=== PATIENT | female | born 1960 | race African-American/Black ===

== ENCOUNTER 2017-01-10 08:16 | Inpatient (IN) | payer OTHER ==
--- NOTE | 2017-01-10 08:41 | PDOC ---
History of Present Illness - General History Source: Patient Exam Limitations: No Limitations - History of Present Illness Initial Comments: 01/10/17 08:46 The patient is a 56-year-old woman with a significant past medical history of hypertension, asthma, cervical Ca, celiac disease, kidney stones and migraine headaches who presents to the emergency department via walk-in for further evaluation of chest pain for the past week. No fall, trauma, strenuous activity. She states that her chest pain is sharp, localized over the left side , non-radiating with a rated 8/10 in severity. She notes that her chest pain is associated with shortness of breath on exertion (when walking), nausea and lightheadedness. She also reports that she is experiencing her typical migraine headaches, frontal and throbbing/pressure in nature, but states that her headache is worse today. She reports that her chest pains have been intermittent for the past week but today, at 04:00AM, her chest pains have been constant. She admits that she has been stressed out lately, and that might be affecting her. She also recalls that she had outpatient lab work done last week , and she was informed by Dr. Matthew Keith that she was anemic and she should present to the ER on Wednesday, but she did not, as it was her mother's birthday weekend. She denies fever, chills, cough, hemoptysis, diaphoresis. She denies jaw/ back pain lower extremity pain/swelling, calf tenderness/pain She denies abdominal pain, vomiting, diarrhea. No urinary complaints. She denies recent travel, recent surgery, recent immobilization. Allergies: Aspirin (Hives). Lidocaine. Penicillin (Hives) Past Surgical History: Laparoscopic Cholecystectomy (August of 2013). Caesarian. Tubal ligation. Social History: Former tobacco smoker (quit in 2001). No ETOH or recreational drug use. Primary Care Physician: Dr. Mathtew Keith [phone] <Maame York - Last Filed: 01/10/17 11:36> - General History Source: Patient, Old Records Exam Limitations: No Limitations <Lacy Farley - Last Filed: 01/10/17 12:07> - General Chief Complaint: Chest Pain Stated Complaint: CHEST PAIN/low h&h Time Seen by Provider: 01/10/17 08:31 Past History <YorkMaame - Last Filed: 01/10/17 11:36> - Past Medical History Anemia: No Asthma: Yes Cancer: Yes (CERVICAL CANCER X 2) Cardiac Disorders: No CVA: No COPD: No CHF: No Dementia: No Diabetes: No GI Disorders: Yes (CELIAC DISEASE) Disorders: Yes HTN: Yes Hypercholesterolemia: No Liver Disease: No Seizures: No Thyroid Disease: No - Surgical History Abdominal Surgery: No Appendectomy: No Cardiac Surgery: No Cholecystectomy: No Lung Surgery: No Neurologic Surgery: No Orthopedic Surgery: No - Psycho/Social/Smoking Cessation Hx Anxiety: No Suicidal Ideation: No Smoking History: Former smoker Have you smoked in the past 12 months: No If you are a former smoker, when did you quit?: 15 YRS. AGO Information on smoking cessation initiated: No Hx Alcohol Use: No Drug/Substance Use Hx: No Substance Use Type: None Hx Substance Use Treatment: No <Lacy Farley - Last Filed: 01/10/17 12:07> - Past Medical History Allergies/Adverse Reactions: Allergies Allergy/AdvReac Type Severity Reaction Status Date / Time aspirin Allergy Severe Hives Verified 01/10/17 08:20 lidocaine Allergy Severe Hives Verified 01/10/17 08:20 Penicillins Allergy Severe Hives Verified 01/10/17 08:20 Home Medications: Ambulatory Orders Metoprolol Succinate [Toprol XL -] 25 mg PO DAILY 10/24/12 Omeprazole [Prilosec (RX)] 40 mg PO DAILY 10/24/12 Amlodipine Besylate [Norvasc -] 10 mg PO DAILY 08/25/13 Clopidogrel Bisulfate [Plavix -] 75 mg PO DAILY 02/28/15 Lipase/Protease/Amylase [Ricki Dr 36,000 Units Capsule] 1 each PO DAILY Losartan Potassium 50 mg PO DAILY 10/11/15 Pramipexole Dihydrochloride [Mirapex -] 0.75 mg PO DAILY 10/11/15 Pramipexole Dihydrochloride [Mirapex -] 2 mg PO HS 10/11/15 Topiramate 100 mg PO BID 10/11/15 Trazodone HCl [Desyrel -] 50 mg PO HS 10/11/15 Review of Systems - Review of Systems Able to Perform ROS?: Yes Comments:: 01/10/17 08:46 GENERAL/CONSTITUTIONAL: No fever or chills. No weakness. HEAD, EYES, EARS, NOSE AND THROAT: No change in vision. No ear pain or discharge. No sore throat. CARDIOVASCULAR: Yes: Chest pain. Shortness of breath. RESPIRATORY: No cough, wheezing, or hemoptysis. GASTROINTESTINAL: Yes: Nausea. No vomiting, diarrhea or constipation. GENITOURINARY: No dysuria, frequency, or change in urination. MUSCULOSKELETAL: No joint or muscle swelling or pain. No neck or back pain. SKIN: No rash NEUROLOGIC: Yes: Headache. Lightheadedness. No vertigo, loss of consciousness, or change in strength/sensation. ENDOCRINE: No increased thirst. No abnormal weight change. HEMATOLOGIC/LYMPHATIC: Yes: Anemia. No easy bleeding, or history of blood clots. ALLERGIC/IMMUNOLOGIC: No hives or skin allergy. <Maame York - Last Filed: 01/10/17 11:36> *Physical Exam - Vital Signs Last Vital Signs Temp Pulse Resp BP Pulse Ox 98.3 F 87 15 137/87 100 01/10/17 08:20 01/10/17 08:20 01/10/17 08:20 01/10/17 08:20 01/10/17 08:20 - Physical Exam Comments: 01/10/17 08:47 GENERAL: Awake, alert, and fully oriented, in no acute distress HEAD: No signs of trauma EYES: PERRLA, EOMI, sclera anicteric, conjunctiva clear ENT: Auricles normal inspection, hearing grossly normal, nares patent, oropharynx clear without exudates. Moist mucosa NECK: Normal ROM, supple, no lymphadenopathy, JVD, or masses LUNGS: Breath sounds equal, clear to auscultation bilaterally. No wheezes, and no crackles HEART: Regular rate and rhythm, normal S1 and S2, no murmurs, rubs or gallops ABDOMEN: Soft, nontender, normoactive bowel sounds. No guarding, no rebound. No masses EXTREMITIES: Normal range of motion, no edema. No clubbing or cyanosis. No cords, erythema, or tenderness NEUROLOGICAL: Cranial nerves II through XII grossly intact. Normal speech, normal gait <Maame York - Last Filed: 01/10/17 11:36> - Vital Signs Last Vital Signs Temp Pulse Resp BP Pulse Ox 98.3 F 87 15 137/87 100 01/10/17 08:20 01/10/17 08:20 01/10/17 08:20 01/10/17 08:20 01/10/17 08:20 <Lacy Farley - Last Filed: 01/10/17 12:07> ED Treatment Course - LABORATORY CBC & Chemistry Diagram: 01/10/17 09:10 01/10/17 10:30 - RADIOLOGY Radiograph Interpretation: 01/10/17 09:52 EXAM: RAD/CHEST X-RAY PORTABLE IMPRESSION: An AP portable view of the chest is been submitted. Since 02/20/2015 1128 hours, there is no significant change. There are clear lungs, normal aorta , normal tolu and normal heart. The angles are sharp. The soft tissues are intact. There are right paratracheal calcified nodes. There is some old apical pleural thickening. <Maame York - Last Filed: 01/10/17 11:36> - LABORATORY CBC & Chemistry Diagram: 01/10/17 09:10 01/10/17 10:30 <Lacy Farlye - Last Filed: 01/10/17 12:07> Medical Decision Making - Medical Decision Making 01/10/17 11:35 MicroBlog[employer] Hospitalist. <Maame York - Last Filed: 01/10/17 11:36> - Medical Decision Making 01/10/17 09:20 56-year-old female with history of cervical CA, anemia, hypertension, migraine headaches, celiac disease kidney stones who presents the emergency Department with complaints of intermittent chest pain times one week and migraine headache today. The patient also states that she was found to be more anemic on labs done by her primary care physician and was told to come to the emergency department. Differential diagnosis includes but is not limited to: Anemia, ACS, pneumonia, musculoskeletal disease, electrolyte abnormality, toxic/metabolic derangement. Plan: 1. EKG 2. Labs 3. Pain management 4. Chest x-ray 5. Observe and reevaluate 01/10/17 12:04 Addendum: The labs were reviewed and are noted in the EMR. Her hemoglobin is 7.4 which is decreased from her baseline. The plan is to admit the patient to the hospital for workup of anemia, chest pain and blood transfusion since she is symptomatic. A type and screen has been sent. I've endorsed the patient to the hospitalist. <Lacy Farley - Last Filed: 01/10/17 12:07> *DC/Admit/Observation/Transfer - Attestations Scribe Attestion: 01/10/17 08:47 Documentation prepared by Maame York, acting as medical physicist for Lacy Farley MD. <Maame York - Last Filed: 01/10/17 11:36> - Discharge Dispostion Admit: Yes - Attestations Physician Attestion: 01/10/17 09:21 I, Dr. Lacy Farley, attest that the scribes documentation that appears above has been prepared under my direction and personally reviewed by me in its entirety. I confirmed that the note above accurately reflects all work, treatment, procedures, and medical decision-making performed by me. <Lacy Farley - Last Filed: 01/10/17 12:07> Diagnosis at time of Disposition: Chest pain, Headache, Anemia - Discharge Dispostion Condition at time of disposition: Stable - Referrals Referrals: Matthew Wiley MD [Primary Care Provider] -
[2017-01-10] MEDS ORDERED: ACETAMINOPHEN/CAFFEINE/BUTALBITAL 1 TAB PO ONE (09:12)
[2017-01-10] MEDS ORDERED: ACETAMINOPHEN/CAFFEINE/BUTALBITAL 1 TAB ONE (09:19)
[2017-01-10 10:06] LABS: BASOPHIL 1.6 % (0-2.0); EOSINOPHIL 2.1 % (0-4.5); MCH 22.8 pg (25.7-33.7); MCHC 30.3 g/dl (32.0-36.0); MEAN CELL VOLUME 75.2 fl (80-96); NEUTROPHILS 66.2 % (42.8-82.8); PLATELET COUNT 369 K/MM3 (134-434); RDW 17.3 % (11.6-15.6); WHITE BLOOD COUNT 4.5 K/mm3 (4.0-10.0)
[2017-01-10 11:06] LABS: ALBUMIN 3.9 g/dl (3.4-5.0); ALK PHOS 140 U/L (45-117); ANION GAP 9 (8-16); BILIRUBIN,TOTAL 0.3 mg/dL (0.2-1.0); CALCIUM 8.7 mg/dL (8.5-10.1); CO2 23 mmol/L (21-32); CREATININE 0.9 mg/dL (0.55-1.02); GLUCOSE,RANDOM 82 mg/dL (74-106); SGPT/ALT 15 U/L (12-78); TOT PROT 7.5 g/dl (6.4-8.2); TROPONIN I < 0.02 ng/ml (0.00-0.05)
[2017-01-10 11:07] LABS: SGOT/AST 36 U/L (15-37)
[2017-01-10] MEDS ORDERED: NITROGLYCERIN SUBLINGUAL 1/150 0.4 MG TAB SL PRN (12:04)
--- NOTE | 2017-01-10 13:11 | CONSULT ---
Consult - text type - Consultation Consultation Note: Cardiology 56-year-old woman with a significant past medical history of hypertension, asthma, cervical Ca, celiac disease, kidney stones and migraine headaches who presents to the emergency department via walk-in for further evaluation of chest pain for the past week. PE: vitals stable normal cardio-pulmonary exam abdomen soft no leg edema Impression: severe anemia chest pains and dyspnea may be aggravated by anemia Rule out IL, currently stable Rec: cardiac evaluation to continue with anemia evaluations Echocardiogram EKG
--- NOTE | 2017-01-10 13:28 | HP ---
CHIEF COMPLAINT: chest pain x 1 week PCP: HISTORY OF PRESENT ILLNESS: 56 year old female presents complaining of 1 week history of mid sternal chest pain , 6/7 in intensity worse on exertion. Reports mild exertional SOB. No pedal edema. Denies history of MT. Most recent stress test in 2013 was normal . SHe has a history of vascular RLE stent and was prescribed Plavix however ran out of it and hasnt been taking it past month. She was told by her PMD on wednesday to go to ED for evaluation due to worsening anemia. ER course was notable for: (1) (2) (3) Recent Travel: no PAST MEDICAL HISTORY: Asthma HTN Cervical Cancer Iron Deficiency anemia CAD Celiac Disease Nephrolithiasis PAST SURGICAL HISTORY: Cholecystectomy Social History: Smoking: Alcohol: Drugs: Family History: Allergies aspirin Allergy (Severe, Verified 01/10/17 08:20) Hives lidocaine Allergy (Severe, Verified 01/10/17 08:20) Hives PT. UNSURE OF WHEN, AND WHY, IT WAS LONG TIME AGO Penicillins Allergy (Severe, Verified 01/10/17 08:20) Hives HOME MEDICATIONS: Home Medications Medication Instructions Recorded Metoprolol Succinate [Toprol XL -] 25 mg PO DAILY 10/24/12 Omeprazole [Prilosec (RX)] 40 mg PO DAILY 10/24/12 Amlodipine Besylate [Norvasc -] 10 mg PO DAILY 08/25/13 Clopidogrel Bisulfate [Plavix -] 75 mg PO DAILY 02/28/15 Lipase/Protease/Amylase [Creon Dr 1 each PO DAILY 10/11/15 36,000 Units Capsule] Losartan Potassium 50 mg PO DAILY 10/11/15 Pramipexole Dihydrochloride 0.75 mg PO DAILY 10/11/15 [Mirapex -] Pramipexole Dihydrochloride 2 mg PO HS 10/11/15 [Mirapex -] Topiramate 100 mg PO BID 10/11/15 Trazodone HCl [Desyrel -] 50 mg PO HS 10/11/15 REVIEW OF SYSTEMS CONSTITUTIONAL: Absent: fever, chills, diaphoresis, generalized weakness, malaise, loss of appetite, weight change HEENT: Absent: rhinorrhea, nasal congestion, throat pain, throat swelling, difficulty swallowing, mouth swelling, ear pain, eye pain, visual changes. Has MIgraine headache. CARDIOVASCULAR: Absent: syncope, palpitations, irregular heart rate, lightheadedness, peripheral edema RESPIRATORY: Absent: cough, orthopnea, wheezing, stridor, hemoptysis Present: dyspnea with exertion GASTROINTESTINAL: Absent: abdominal pain, abdominal distension, nausea, vomiting, diarrhea, melena , hematochezia. Has constipation GENITOURINARY: Absent: dysuria, frequency, urgency, hesitancy, hematuria, flank pain, genital pain MUSCULOSKELETAL: Absent: myalgia, arthralgia, joint swelling, back pain, neck pain SKIN: Absent: rash, itching, pallor HEMATOLOGIC/IMMUNOLOGIC: Absent: easy bleeding, easy bruising, lymphadenopathy, frequent infections ENDOCRINE: Absent: unexplained weight gain, unexplained weight loss, heat intolerance, cold intolerance NEUROLOGIC: Absent: focal weakness or paresthesias, dizziness, unsteady gait, seizure, mental status changes, bladder or bowel incontinence PSYCHIATRIC: Absent: anxiety, depression, suicidal or homicidal ideation, hallucinations. PHYSICAL EXAMINATION Vital Signs - 24 hr 01/10/17 12:47 Temperature 98.2 F Pulse Rate [ 69 Left Radial] Respiratory 14 Rate Blood Pressure 139/69 [Right Arm] O2 Sat by Pulse 100 Oximetry (%) GENERAL: Awake, alert, and fully oriented, in no acute distress. HEAD: Normal with no signs of trauma. EYES: Pupils equal, round and reactive to light, extraocular movements intact, sclera anicteric, conjunctiva clear. No lid lag. EARS, NOSE, THROAT: Ears normal, nares patent, oropharynx clear without exudates. Moist mucous membranes. NECK: Normal range of motion, supple without lymphadenopathy, JVD, or masses. LUNGS: Breath sounds equal, clear to auscultation bilaterally. No wheezes, and no crackles. No accessory muscle use. HEART: Regular rate and rhythm, normal S1 and S2 without murmur, rub or gallop. ABDOMEN: Soft, nontender, not distended, normoactive bowel sounds, no guarding, no rebound, no masses. No hepatomegaly or splenomegaly. MUSCULOSKELETAL: Normal range of motion at all joints. No bony deformities or tenderness. No CVA tenderness. UPPER EXTREMITIES: 2+ pulses, warm, well-perfused. No cyanosis. No clubbing. No peripheral edema. LOWER EXTREMITIES: 2+ pulses, warm, well-perfused. No calf tenderness. No peripheral edema. NEUROLOGICAL: Cranial nerves II-XII intact. Normal speech. Normal gait. PSYCHIATRIC: Cooperative. Good eye contact. Appropriate mood and affect. SKIN: Warm, dry, normal turgor, no rashes or lesions noted, normal capillary refill. Abnormal Lab Results 01/10/17 01/10/17 01/10/17 09:10 10:30 11:32 RBC 3.40 L Hgb 7.8 L D Hct 25.6 L D MCV 75.2 L MCHC 30.3 L RDW 17.3 H D MPV 7.0 L Chloride 110 H BUN 21 H Alkaline Phosphatase 140 H D Crossmatch See Detail EKG - no acute ST changes ASSESSMENT/PLAN: 1. Chest Pain - + risk factors, possibly oxygen demand ischemia secondary to severe anemia - telemetry monitoring - allergic to ASA - ECHO - cardiology evaluation - Troponins - EKG -Nitro prn - c/w bbl 2. Anemia- worsening , iron defficiency - transfuse 1 unit - repeat CBC 3. Migraine headache - Fioricet . 4. History of vascular stent - will reinstate Plavix Visit type - Emergency Visit Emergency Visit: Yes ED Registration Date: 01/10/17 Care time: The patient presented to the Emergency Department on the above date and was hospitalized for further evaluation of their emergent condition. - New Patient This patient is new to me today: Yes Date on this admission: 01/10/17 - Critical Care Critical Care patient: No
[2017-01-10] MEDS: ACETAMINOPHEN/CAFFEINE/BUTALBITAL 1 TAB PO PRN (16:31)
[2017-01-10 16:52] LABS: TROPONIN I < 0.02 ng/ml (0.00-0.05)
[2017-01-10] MEDS: LOSARTAN POTASSIUM 50 MG TABLET (FP) PO SCH (20:08)
[2017-01-10] MEDS: METOPROLOL SUCCINATE 25 MG TAB.SR.24H (FP) PO SCH (20:08)
[2017-01-10] MEDS: PANTOPRAZOLE 40 MG TABLET (FP) PO SCH (20:08)
[2017-01-10] MEDS: CLOPIDOGREL BISULFATE 75 MG TABLET (FP) PO SCH (20:08)
[2017-01-10] MEDS: amLODIPine BESYLATE 10 MG TABLET (FP) PO SCH (20:08)
[2017-01-10] MEDS ORDERED: TOPIRAMATE 100 MG TABLET PO SCH (22:00)
[2017-01-10] MEDS ORDERED: ONDANSETRON 4 MG/2 ML VIAL ONE (23:11)
[2017-01-10] MEDS: ONDANSETRON 4 MG/2 ML VIAL IVPUSH PRN (23:13)
[2017-01-11] MEDS: PRAMIPEXOLE DIHYDROCHLORIDE 0.25 MG TABLET PO SCH ×2 (00:05→12:26)
[2017-01-11] MEDS: traZODone HCL 50 MG TABLET (FP) PO SCH ×2 (00:05→22:15)
[2017-01-11] MEDS: ACETAMINOPHEN/CAFFEINE/BUTALBITAL 1 TAB PO PRN ×3 (00:06→12:23)
[2017-01-11 08:09] LABS: CALCIUM 8.2 mg/dL (8.5-10.1); CREATININE 0.9 mg/dL (0.55-1.02)
[2017-01-11 08:10] LABS: MCH 24.4 pg (25.7-33.7); MCHC 31.6 g/dl (32.0-36.0); MEAN CELL VOLUME 77.5 fl (80-96); MEAN PLT VOLUME 7.2 fl (7.5-11.1); PLATELET COUNT 317 K/MM3 (134-434); RDW 17.4 % (11.6-15.6); WHITE BLOOD COUNT 5.9 K/mm3 (4.0-10.0)
[2017-01-11] MEDS: LIPASE PO SCH (08:24)
[2017-01-11] MEDS: [UNRECOGNIZED DRUG - OTHER] PO SCH (08:24)
[2017-01-11] MEDS: AMYLASE PO SCH (08:24)
[2017-01-11] MEDS: PROTEASE PO SCH (08:24)
[2017-01-11] MEDS ORDERED: amLODIPine BESYLATE 10 MG TABLET (FP) PO SCH (10:00)
[2017-01-11] MEDS ORDERED: DIPYRIDAMOLE 50 MG/10 ML VIAL IVPB ONE (10:07)
[2017-01-11] MEDS: LOSARTAN POTASSIUM 50 MG TABLET (FP) PO SCH (12:25)
[2017-01-11] MEDS: CLOPIDOGREL BISULFATE 75 MG TABLET (FP) PO SCH (12:26)
[2017-01-11] MEDS: amLODIPine BESYLATE 10 MG TABLET (FP) PO SCH (12:27)
[2017-01-11] MEDS: METOPROLOL SUCCINATE 25 MG TAB.SR.24H (FP) PO SCH (12:27)
[2017-01-11] MEDS: PANTOPRAZOLE 40 MG TABLET (FP) PO SCH (12:27)
[2017-01-11] MEDS ORDERED: WATER IVPB ONE (12:30)
[2017-01-11] MEDS ORDERED: DEXTROSE 5% IVPB ONE (12:30)
[2017-01-11] MEDS ORDERED: DIPYRIDAMOLE STRESS TEST IVPB ONE (12:30)
--- NOTE | 2017-01-11 19:25 | PN ---
Physical Exam: SUBJECTIVE: Patient seen and examined. No further episodes of chest pain or SOB. Does have a migraine headache, getting fioricet. OBJECTIVE: Vital Signs Period Temp Pulse Resp BP Sys/Miller Pulse Ox Last 24 Hr 97.5 F-98.9 F 61-77 18-18 87-129/52-70 97-100 GENERAL: The patient is awake, alert, and fully oriented, in no acute distress. HEAD: Normal with no signs of trauma. EYES: PERRL, extraocular movements intact, sclera anicteric, conjunctiva clear. No ptosis. LUNGS: Breath sounds equal, clear to auscultation bilaterally, no wheezes, no crackles, no accessory muscle use. HEART: Regular rate and rhythm, S1, S2 without murmur, rub or gallop. ABDOMEN: Soft, nontender, nondistended, normoactive bowel sounds, no guarding, no rebound, no hepatosplenomegaly, no masses. EXTREMITIES: 2+ pulses, warm, well-perfused, no edema. NEUROLOGICAL: Cranial nerves II through XII grossly intact. Normal speech, gait not observed. Laboratory Results - last 24 hr 01/11/17 01/11/17 06:50 06:50 WBC 5.9 D RBC 3.61 Hgb 8.8 L D Hct 27.9 L MCV 77.5 L MCHC 31.6 L RDW 17.4 H Plt Count 317 MPV 7.2 L Sodium 142 Potassium 4.7 Chloride 109 H Carbon Dioxide 25 Anion Gap 8 BUN 23 H Creatinine 0.9 Random Glucose 95 Calcium 8.2 L Triglycerides 99 Cholesterol 149 Total LDL Cholesterol 97 HDL Cholesterol 41 Active Medications Generic Name Dose Route Start Last Admin Trade Name Freq PRN Reason Stop Dose Admin Acetaminophen/Butalbital/Caffeine 1 tablet 01/10/17 15:27 01/11/17 12:23 Fioricet - PO 1 tablet Q4H PRN Administration FEVER OR PAIN Amlodipine Besylate 10 mg 01/10/17 20:00 01/11/17 12:27 Norvasc - PO Not Given DAILY ROSALVA Atorvastatin Calcium 40 mg 01/11/17 22:00 Lipitor - PO HS ROSALVA Clopidogrel Bisulfate 75 mg 01/10/17 20:00 01/11/17 12:26 Plavix - PO 75 mg DAILY ROSALVA Administration Losartan Potassium 50 mg 01/10/17 20:00 01/11/17 12:25 Cozaar - PO Not Given DAILY ROSALVA Metoprolol Succinate 25 mg 01/10/17 20:00 01/11/17 12:27 Toprol Xl - PO Not Given DAILY ROSALVA Non-Formulary Medication 1 each 01/11/17 08:00 01/11/17 08:24 Lipase/Protease/Amylase [Ricki Kaur 36,000 Units Capsule] PO 1 each DAILY@0800 ROSALVA Administration Ondansetron HCl 4 mg 01/10/17 23:08 01/10/17 23:13 Zofran Injection IVPUSH 4 mg Q6H PRN Administration NAUSEA AND/OR VOMITING Pantoprazole Sodium 40 mg 01/10/17 20:00 01/11/17 12:27 Protonix - PO 40 mg DAILY ROSALVA Administration Pramipexole Dihydrochloride 0.75 mg 01/10/17 20:00 01/11/17 12:26 Mirapex - PO 0.75 mg DAILY ROSALVA Administration Trazodone HCl 50 mg 01/10/17 22:00 01/11/17 00:05 Desyrel - PO 50 mg HS ROSALVA Administration ASSESSMENT/PLAN 56 year-old female with a PMH of HTN, asthma, CAD, PVD s/p right LE stent, cervical cancer, iron-deficiency anemia, celiac disease, kidney stones,and migraines. Admitted for chest pain. Chest pain --serial troponins negative; ECG not suggestive of ischemic event; CXR unremarkable --echo: LV normal, RV normal, mild MR, moderate TR --nuclear stress: small subtle apical reversible defect suggestive of mild ischemia; small zone inferobasal reversible defect suggestive of mild ischemia; EF 58% --discussed results with Dr. Sanabria; continue Plavix, metoprolol; start statin; would start ASA but patient allergic; he will see patient tomorrow PVD s/p stent RLE --continue Plavix Anemia --Hgb 7.8, transfused 1 unit with appropriate response --h/h stable Migraines --Fioricet F/E/N Fluids: PO intake adequate Electrolytes: replete as indicated Nutrition: low sodium DVT prophylaxis: oob, ambulation Dispo: continues to require inpatient care. full Code. Visit type - Emergency Visit Emergency Visit: Yes ED Registration Date: 01/10/17 Care time: The patient presented to the Emergency Department on the above date and was hospitalized for further evaluation of their emergent condition. - New Patient This patient is new to me today: Yes Date on this admission: 01/12/17 - Critical Care Critical Care patient: No
[2017-01-11] MEDS ORDERED: ATORVASTATIN CA 40 MG TABLET (FP) PO SCH (22:00)
[2017-01-12] MEDS: ONDANSETRON 4 MG/2 ML VIAL IVPUSH PRN (00:05)
[2017-01-12] MEDS ORDERED: diphenhydrAMINE HCL 25 MG CAPSULE (FP) PO ONE (00:11)
[2017-01-12] MEDS: ACETAMINOPHEN/CAFFEINE/BUTALBITAL 1 TAB PO PRN ×2 (01:14→15:10)
[2017-01-12 08:09] LABS: BASOPHIL 1.2 % (0-2.0); EOSINOPHIL 5.2 % (0-4.5); MCH 24.6 pg (25.7-33.7); MCHC 31.8 g/dl (32.0-36.0); MEAN CELL VOLUME 77.4 fl (80-96); MEAN PLT VOLUME 7.2 fl (7.5-11.1); NEUTROPHILS 57.7 % (42.8-82.8); PLATELET COUNT 334 K/MM3 (134-434); RDW 17.5 % (11.6-15.6)
[2017-01-12 08:50] LABS: ALBUMIN 3.4 g/dl (3.4-5.0); ANION GAP 5 (8-16); CALCIUM 8.4 mg/dL (8.5-10.1); CO2 27 mmol/L (21-32); GLUCOSE,RANDOM 85 mg/dL (74-106); MAGNESIUM 2.3 mg/dL (1.8-2.4)
[2017-01-12 08:54] LABS: ALK PHOS 126 U/L (45-117); BILIRUBIN,TOTAL 0.2 mg/dL (0.2-1.0); CREATININE 0.9 mg/dL (0.55-1.02); SGOT/AST 19 U/L (15-37); SGPT/ALT 12 U/L (12-78); TOT PROT 6.6 g/dl (6.4-8.2)
[2017-01-12] MEDS: AMYLASE PO SCH (09:26)
[2017-01-12] MEDS: PROTEASE PO SCH (09:26)
[2017-01-12] MEDS: LIPASE PO SCH (09:26)
[2017-01-12] MEDS: [UNRECOGNIZED DRUG - OTHER] PO SCH (09:26)
[2017-01-12] MEDS: LOSARTAN POTASSIUM 50 MG TABLET (FP) PO SCH (09:27)
[2017-01-12] MEDS: PANTOPRAZOLE 40 MG TABLET (FP) PO SCH (09:27)
[2017-01-12] MEDS: CLOPIDOGREL BISULFATE 75 MG TABLET (FP) PO SCH (09:27)
[2017-01-12] MEDS: METOPROLOL SUCCINATE 25 MG TAB.SR.24H (FP) PO SCH (09:27)
[2017-01-12] MEDS: amLODIPine BESYLATE 10 MG TABLET (FP) PO SCH (09:27)
[2017-01-12] MEDS: PRAMIPEXOLE DIHYDROCHLORIDE 0.25 MG TABLET PO SCH (09:28)
[2017-01-12 15:41] VITALS: BP 103/62; PULSE 63; TEMP 97.7
--- NOTE | 2017-01-12 17:18 | EKG ---
Test Reason : Blood Pressure : / mmHG Vent. Rate : 080 BPM Atrial Rate : 080 BPM P-R Int : 156 ms QRS Dur : 082 ms QT Int : 366 ms P-R-T Axes : 063 068 067 degrees QTc Int : 422 ms NORMAL SINUS RHYTHM NORMAL ECG WHEN COMPARED WITH ECG OF 21-APR-2014 10:50, T WAVE VARIATION Confirmed by YOSI GRIMES MD ([id number]) on 01/12/2017 5:18:34 PM Referred By: Confirmed By:YOSI GRIMES MD
--- NOTE | 2017-01-12 17:46 | DS ---
Physical Exam: SUBJECTIVE: Patient seen and examined. No recurrence of cardiac symptoms and migraine is well-controlled with fioricet. OBJECTIVE: Vital Signs Period Temp Pulse Resp BP Sys/Miller Pulse Ox Last 24 Hr 97.7 F-98.9 F 57-68 18-19 96-117/52-71 99 PHYSICAL EXAM GENERAL: The patient is awake, alert, and fully oriented, in no acute distress. HEAD: Normal with no signs of trauma. EYES: PERRL, extraocular movements intact, sclera anicteric, conjunctiva clear. No ptosis. LUNGS: Breath sounds equal, clear to auscultation bilaterally, no wheezes, no crackles, no accessory muscle use. HEART: Regular rate and rhythm, S1, S2 without murmur, rub or gallop. ABDOMEN: Soft, nontender, nondistended, normoactive bowel sounds, no guarding, no rebound, no hepatosplenomegaly, no masses. EXTREMITIES: 2+ pulses, warm, well-perfused, no edema. NEUROLOGICAL: Cranial nerves II through XII grossly intact. Normal speech, gait not observed. Laboratory Results - last 24 hr 01/12/17 01/12/17 06:50 06:50 WBC 5.0 RBC 3.62 Hgb 8.9 L Hct 28.0 L MCV 77.4 L MCHC 31.8 L RDW 17.5 H Plt Count 334 MPV 7.2 L Neutrophils % 57.7 Lymphocytes % 25.4 Monocytes % 10.5 H Eosinophils % 5.2 H D Basophils % 1.2 Sodium 140 Potassium 4.7 Chloride 108 H Carbon Dioxide 27 Anion Gap 5 L BUN 21 H Creatinine 0.9 Creat Clearance w eGFR > 60 Random Glucose 85 Calcium 8.4 L Magnesium 2.3 Total Bilirubin 0.2 D AST 19 D ALT 12 Alkaline Phosphatase 126 H Total Protein 6.6 Albumin 3.4 HOSPITAL COURSE: Date of Admission:01/10/17 Date of Discharge: 01/12/17 56 year-old female with a PMH of HTN, asthma, CAD, PVD s/p right LE stent, cervical cancer, iron-deficiency anemia, celiac disease, kidney stones,and migraines. Admitted for chest pain. Chest pain --serial troponins negative; ECG not suggestive of ischemic event; CXR unremarkable --echo: LV normal, RV normal, mild MR, moderate TR --nuclear stress: small subtle apical reversible defect suggestive of mild ischemia; small zone inferobasal reversible defect suggestive of mild ischemia; EF 58% --discussed results with Dr. Sanabria; continue Plavix, metoprolol; start statin; would start ASA but patient allergic; he approved discharge and patient to see him in his office on PVD s/p stent RLE --continue Plavix Anemia --Hgb 7.8, transfused 1 unit with appropriate response --h/h stable Migraines --Fioricet Minutes to complete discharge: 35 Discharge Summary Reason For Visit: CHEST PAIN,HEADACHE,ANEMIA Current Active Problems Anemia (Acute) Chest pain (Acute) Headache (Acute) Condition: Stable - Instructions Diet, Activity, Other Instructions: It is VERY IMPORTANT that you see Dr. Sanabria on January 14. His office address and telephone number is included in this discharge packet. You must take your home medications every day as prescribed, including metoprolol and Plavix. A new prescription has been called into your pharmacy for Lipitor. This is a statin drug. Take this medication every day as directed. Discuss all your medications with Dr. Sanabria on . Return to the emergency department for any new or worsening symptoms. Referrals: Matthew Wiley MD [Primary Care Provider] - Jackson Sanabria MD [Staff Physician] - 01/14/17 9:00 am Disposition: HOME - Home Medications Comprehensive Discharge Medication List: Ambulatory Orders Metoprolol Succinate [Toprol XL -] 25 mg PO DAILY 10/24/12 Omeprazole [Prilosec (RX)] 40 mg PO DAILY 10/24/12 Amlodipine Besylate [Norvasc -] 10 mg PO DAILY 08/25/13 Clopidogrel Bisulfate [Plavix -] 75 mg PO DAILY 02/28/15 Lipase/Protease/Amylase [Ricki Kaur 36,000 Units Capsule] 1 each PO DAILY Losartan Potassium 50 mg PO DAILY 10/11/15 Pramipexole Dihydrochloride [Mirapex -] 0.75 mg PO DAILY 10/11/15 Pramipexole Dihydrochloride [Mirapex -] 2 mg PO HS 10/11/15 Topiramate 100 mg PO BID 10/11/15 Trazodone HCl [Desyrel -] 50 mg PO HS 10/11/15 Atorvastatin Ca [Lipitor] 40 mg PO HS #30 tablet 01/12/17 This patient is new to me today: No Emergency Visit: Yes ED Registration Date: 01/10/17 Care time: The patient presented to the Emergency Department on the above date and was hospitalized for further evaluation of their emergent condition. Critical Care patient: No - Discharge Referral Referred to [facility] Yes Physician Referral: Matthew Keith MD ([facility])
== END 2017-01-12 18:28 | disposition home or self-care (01) | DRG 198 ==
LOC: JER 08:16 → JERBED 12:11 → UNDOADMIN 12:22 → J5S 13:46
PROVIDERS: ADMIT Internal Medicine; ATTEND Nurse Practitioner Acute Care
PROC: 30233N1 Transfusion of Nonautologous Red Blood Cells into Peripheral Vein, Percutaneous Approach (ICD-10-PCS; principal; 2017-01-10)
DX: R07.89 Other chest pain (principal); D50.8 Other iron deficiency anemias; J45.909 Unspecified asthma, uncomplicated; I25.10 Atherosclerotic heart disease of native coronary artery without angina pectoris; G43.809 Other migraine, not intractable, without status migrainosus; K90.0 Celiac disease; I10 Essential (primary) hypertension; Z85.41 Personal history of malignant neoplasm of cervix uteri; Z87.442 Personal history of urinary calculi; I73.89 Other specified peripheral vascular diseases
CPT/HCPCS: 36415; 36430; 71010-TC; 78452-TC; 80048; 80053; 80061; 82550; 83721; 83735; 84484; 85025; 85027; 86850; 86900; 86901; 86922; 93005; 93010; 93017; 93306-TC; 99285-25; A9502; J1245; P9058

== ENCOUNTER 2017-07-30 10:10 | Emergency (ER) | payer OTHER ==
[2017-07-30 10:22] VITALS: BMI 22.3
--- NOTE | 2017-07-30 10:29 | PDOC ---
History of Present Illness - General Stated Complaint: SENT FOR RE-EVALUATION, SUTURE REMOVAL Time Seen by Provider: 07/30/17 10:28 History Source: Patient - History of Present Illness Initial Comments: 07/30/17 11:20 CC: Symptomatic Anemia - sent by PCP for Hb 7.9 Patient is a 57 y.o. female with a reported PMH of Celiac Disease with associated JIMMY (2/2 to Celiac Disease) and Asthma (last Ventolin use 3 months previous) who presents at the behest of her GI doctor after labs drawn last week (reported yesterday) showed a Hb of 7.9. Patient notes some shortness of breath on exertion and lightheadedness. Patient also complains of L wrist pain - following a mechanical fall last week. Patient notes she tripped and broke her fall with her hands possibly hyper-extending her wrist. PMD: Allergies: Aspirin, Lidocaine, Penicillin Social: denies nicotine, denies cigarettes, denies marijuana/cocaine/heroin EMR reports a more significant PMH than related by the patient: HTN, CAD, PVD (s/p LLE stent), h/o Cervical Cancer (s/p resection), Nephrolithiasis and Migraines. Past History - Past Medical History Allergies/Adverse Reactions: Allergies Allergy/AdvReac Type Severity Reaction Status Date / Time aspirin Allergy Severe Hives Verified 07/25/17 16:50 lidocaine Allergy Severe Hives Verified 07/25/17 16:50 Penicillins Allergy Severe Hives Verified 07/25/17 16:50 Home Medications: Ambulatory Orders Metoprolol Succinate [Toprol XL -] 25 mg PO DAILY 10/24/12 Omeprazole [Prilosec (RX)] 40 mg PO DAILY 10/24/12 Amlodipine Besylate [Norvasc -] 10 mg PO DAILY 08/25/13 Lipase/Protease/Amylase [Ricki Kaur 36,000 Units Capsule] 1 each PO DAILY Losartan Potassium 50 mg PO DAILY 10/11/15 Pramipexole Dihydrochloride [Mirapex -] 0.75 mg PO DAILY 10/11/15 Pramipexole Dihydrochloride [Mirapex -] 2 mg PO HS 10/11/15 Topiramate 100 mg PO BID 10/11/15 Trazodone HCl [Desyrel -] 50 mg PO HS 10/11/15 Atorvastatin Ca [Lipitor] 40 mg PO HS #30 tablet 01/12/17 Anemia: No Asthma: Yes Cancer: Yes (CERVICAL CANCER X 2) Cardiac Disorders: No CVA: No COPD: No CHF: No Dementia: No Diabetes: No GI Disorders: Yes (CELIAC DISEASE) Disorders: Yes HTN: Yes Hypercholesterolemia: No Liver Disease: No Seizures: No Thyroid Disease: No - Surgical History Abdominal Surgery: No Appendectomy: No Cardiac Surgery: No Cholecystectomy: No Lung Surgery: No Neurologic Surgery: No Orthopedic Surgery: No - Suicide/Smoking/Psychosocial Hx Smoking History: Former smoker Have you smoked in the past 12 months: No If you are a former smoker, when did you quit?: 15 years ago Information on smoking cessation initiated: No Hx Alcohol Use: No Drug/Substance Use Hx: No Substance Use Type: None Hx Substance Use Treatment: No Review of Systems - Review of Systems Constitutional: No: Chills, Fever HEENTM: No: Blurred Vision, Throat Pain Respiratory: Yes: Shortness of Breath Cardiac (ROS): Yes: Lightheadedness, Palpitations : No: Burning, Dysuria All Other Systems: Reviewed and Negative *Physical Exam - Vital Signs Last Vital Signs Temp Pulse Resp BP Pulse Ox 98.8 F 78 20 157/83 99 07/30/17 10:19 07/30/17 10:19 07/30/17 10:19 07/30/17 10:19 07/30/17 10:19 - Physical Exam General Appearance: Yes: Nourished, Appropriately Dressed HEENT: positive: EOMI, HEATHER, Other (L supraorbital sutures intact - no erythema , edema, warmth @ suture site) Neck: positive: Trachea midline, Supple Respiratory/Chest: positive: Lungs Clear, Normal Breath Sounds Cardiovascular: positive: Regular Rhythm, Regular Rate, S1, S2 Gastrointestinal/Abdominal: positive: Tender, Soft Musculoskeletal: positive: Normal Inspection Extremity: positive: Normal Capillary Refill, Normal Inspection Integumentary: positive: Normal Color, Dry, Warm Neurologic: positive: control chemist II-XII NML intact, Fully Oriented, Alert ED Treatment Course - LABORATORY CBC & Chemistry Diagram: 07/30/17 11:06 07/30/17 11:06 Medical Decision Making - Medical Decision Making 07/30/17 11:23 Spoke with patient's GI Doctor, Dr. Rogers @ [id number] - patient has an intermittent h/o non-compliance with her celiac diet which often results in anemia. PLAN: 1. CBC, CMP, Type/Screen, Coagulation Studies 2. L wrist X-ray - primary concern for scaphoid fracture 3. Suture removal Likely disposition is home 07/30/17 14:43 XR of L wrist shows no acute fracture or dislocation and some age related degenerative changes. CXR shows R upper lobe pulmonary nodule, possibly inflammatory or infectious. CT Chest ordered to r/o possible pneumonia or other infection causing shortness of breath. 07/30/17 15:16 CT chest shows biplueral thickening and right upper lobe nodularity c/w possible prior granulomatous disease. Patient symptomatically improved with pain control as well as IV Fluids. Patient discharged with copies of her CXR and CT scans and instruction to follow-up with her PCP and pulmonology. Patient also given referral to orthopedic surgery for her L wrist pain. 07/30/17 19:04 *DC/Admit/Observation/Transfer Diagnosis at time of Disposition: Visit for suture removal - Discharge Dispostion Disposition: HOME Condition at time of disposition: Good - Referrals Referrals: Matthew Wiley MD [Primary Care Provider] - Theodore Souza MD [Staff Physician] - Karan Alarocn MD [Staff Physician] - Jd Long MD [Staff Physician] - - Patient Instructions Additional Instructions: Please follow up with your primary care doctor. In addition, please call Dr. Graves for evaluation of your pulmonary nodule - copies of your CT scan have been provided to you. We have also given you referral information for an orthopedic surgeon as well as a hand specialist. Please return to the ED should your symptoms worsen.
--- NOTE | 2017-07-30 10:34 | PDOC ---
Attending Attestation - Resident Resident Name: Kristine Pagan - ED Attending Attestation I have performed the following: I have examined & evaluated the patient, The case was reviewed & discussed with the resident, I agree w/resident's findings & plan, Exceptions are as noted - Medical Decision Making 07/30/17 10:34 I, Dr. Katharine Gant, DO, attest that this document has been prepared under my direction and personally reviewed by me in its entirety. I further attest, that it accurately reflects all work, treatment, procedures and medical decision -making performed by me. 07/30/17 10:59 a/p: 57yo female with multiple complaints -needs suture removal to R eyebrow - will remove and place dressing, well healed , no drainage or redness -L wrist pain - swelling present, concern for poss fracture from her fall, will obtain xray of hand and wrist, splint needed -sob/cp/dizziness, hx of anemia - sent in from GI for blood transfusion - labs, type and screen, ekg, cxr, most likely will need admission <Katharine Gant - Last Filed: 07/30/17 11:04> - HPI HPI: 07/30/17 11:09 57 yr old female,with pmhx of iron deficiency anemia (last transfused 2016), celiac disease, HTN, CAD, PVD s/p right LE stent, cervical cancer(in remission x2 years), kidney stones, who was sent to the ER by 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 Rogers, for a blood transfusion. The patient states that she has been noncompliant with her celiac diet and her hemoglobin last week was 7.9. She reports mild chest discomfort, lightheadedness, and SOB that she attributes to her low hemoglobin. The patient is also complaining of left wrist pain and explains that when she fell 1 week ago, she broke her fall with outstretched hands. When she came into the ER the day of the fall, she did not have any wrist pain - instead, the pain began 3-4 days ago. She denies any new trauma, new injuries. She needs suture removal on the left eyebrow. Denies fever, chills , nausea, vomiting. Allergies: penicillins, aspirin, lidocaine Surgical hx: cholecystectomy, hysterectomy PCP: Inez Kaur Explosive Expert: Dr. Rogers - Physicial Exam PE: 07/30/17 11:10 Constitutional: Awake, alert, oriented. No acute distress. Head: Normocephalic. Eyes: PERRL. EOMI. Conjunctivae are not pale. ENT: Mucous membranes are moist and intact. Posterior pharynx without exudates or erythema. Uvula midline. Neck: Supple. Full ROM. No lymphadenopathy. Cardiovascular: Regular rate. Regular rhythm. S1, S2 regular. Distal pulses are 2+ and symmetric. Pulmonary/Chest: No evidence of respiratory distress. Clear to auscultation bilaterally No wheezing, rales or rhonchi. Abdominal: Soft and non-distended. There is no tenderness. No rebound, guarding or rigidity. No organomegaly. No palpable masses. Good bowel sounds. Back: No CVA tenderness. Left hand: Left lateral wrist tenderness, +tenderness to the 5th metatarsal. + Tenderness to the medial aspect to the hand and wrist dorsally. +swelling to the soft tissue of the lateral wrist. pulses are intact. Skin: +4sutures to right eyebrow. Skin is warm and dry. No petechiae. No purpura. Neurological: Alert and oriented to person, place, and time. Cranial nerves II -XII are grossly intact. Normal speech. Strength is grossly symmetric. No sensory deficits. Psychiatric: Good eye contact. Normal interaction, affect and behavior. <Beckie Beach - Last Filed: 07/30/17 11:10> Heart Score/ECG Review - History History: Slightly suspicious - Electrocardiogram EKG: Normal - Age Age: 45-65 - Risk Factors Risk Factors Heart Score: Yes Hx Hypertension Based on the list above the patient has:: >/=3 risk factors or Hx atherosclerotic disease - ECG Intrepretation Comment:: 07/30/17 11:05 sinus at 71, nl axis, nl interval, no acute st/t wave findings <Katharine Gant - Last Filed: 07/30/17 11:04>
[2017-07-30] MEDS ORDERED: ACETAMINOPHEN WITH CODEINE 300MG/30MG TABLET PO ONE (11:03)
[2017-07-30] MEDS ORDERED: ACETAMINOPHEN WITH CODEINE 300MG/30MG TABLET ONE (11:12)
[2017-07-30 11:36] LABS: BASOPHIL 1.1 % (0-2.0); EOSINOPHIL 1.1 % (0-4.5); MCH 20.7 pg (25.7-33.7); MEAN PLT VOLUME 7.1 fl (7.5-11.1); NEUTROPHILS 73.6 % (42.8-82.8); PLATELET COUNT 511 K/MM3 (134-434); RDW 18.7 % (11.6-15.6); WHITE BLOOD COUNT 9.3 K/mm3 (4.0-10.0)
[2017-07-30 11:47] LABS: ALBUMIN 4.1 g/dl (3.4-5.0); ANION GAP 8 (8-16); BILIRUBIN,TOTAL 0.3 mg/dL (0.2-1.0); CALCIUM 9.5 mg/dL (8.5-10.1); CO2 26 mmol/L (21-32); CREATININE 0.8 mg/dL (0.55-1.02); GLUCOSE,RANDOM 100 mg/dL (74-106); SGPT/ALT 21 U/L (12-78)
[2017-07-30 11:50] LABS: ALK PHOS 131 U/L (45-117); TROPONIN I < 0.02 ng/ml (0.00-0.05)
[2017-07-30 11:53] LABS: CPK 110 IU/L (26-192); SGOT/AST 33 U/L (15-37)
[2017-07-30 12:26] LABS: INR 1.04 (0.82-1.09); PROTHROMBIN TIME (PATIENT) 11.4 SEC (9.98-11.88)
[2017-07-30 12:28] LABS: ACTIVATED PTT 27.6 SECONDS (26.9-34.4)
[2017-07-30] MEDS ORDERED: oxyCODONE HCL 5 MG TABLET PO ONE (13:12)
[2017-07-30] MEDS ORDERED: oxyCODONE HCL 5 MG TABLET ONE (13:16)
[2017-07-30 15:24] VITALS: BP 124/78; PULSE 72; TEMP 98.6
--- NOTE | 2017-07-31 19:29 | EKG ---
Test Reason : Blood Pressure : / mmHG Vent. Rate : 071 BPM Atrial Rate : 071 BPM P-R Int : 136 ms QRS Dur : 082 ms QT Int : 382 ms P-R-T Axes : 053 056 054 degrees QTc Int : 415 ms NORMAL SINUS RHYTHM NORMAL ECG WHEN COMPARED WITH ECG OF 25-JUL-2017 17:55, NONSPECIFIC T WAVE ABNORMALITY NOW EVIDENT IN ANTERIOR LEADS BASELINE ARTIFACT CLINICAL CORRELATION IS RECOMMENDED Confirmed by LILI COMBS MD ([id number]) on 07/31/2017 7:29:00 PM Referred By: Confirmed By:LILI COMBS MD
== END 2017-07-30 15:24 | disposition home or self-care (01) ==
LOC: JER 10:10
DX: Z48.02 Encounter for removal of sutures (principal)
CPT/HCPCS: 36415; 71020-TC; 71250-TC; 73110-TC-LT; 73130-TC-LT; 80053; 84484; 85025; 85610; 85730; 86850; 86900; 86901; 93005; 93010; 99283-25

== ENCOUNTER 2017-11-10 21:23 | Emergency (ER) | payer OTHER ==
--- NOTE | 2017-11-10 21:33 | PDOC ---
Rapid Medical Evaluation Time Seen by Provider: 11/10/17 21:29 Medical Evaluation: Allergies Allergy/AdvReac Type Severity Reaction Status Date / Time aspirin Allergy Severe Hives Verified 07/25/17 16:50 lidocaine Allergy Severe Hives Verified 07/25/17 16:50 Penicillins Allergy Severe Hives Verified 07/25/17 16:50 11/10/17 21:29 I have performed a brief in-person evaluation of this patient. The patient presents with a chief complaint of: right lower back pain Pertinent physical exam findings: M/S: TTP right paraspinous region I have ordered the following: UA The patient will proceed to the ED for further evaluation. Discharge Disposition - Diagnosis Back pain - Referrals Referrals: Matthew Wiley MD [Primary Care Provider] - - Patient Instructions - Post Discharge Activity
[2017-11-10 21:34] VITALS: BP 148/93; PULSE 82; TEMP 98; BMI 22.6
[2017-11-10 22:10] LABS: URINE APPEARANCE TURBID; URINE BILIRUBIN NEGATIVE (NEGATIVE); URINE BLOOD NEGATIVE (NEGATIVE); URINE COLOR YELLOW; URINE GLUCOSE (UA) NEGATIVE (NEGATIVE); URINE KETONE NEGATIVE (NEGATIVE); URINE NITRITE NEGATIVE (NEGATIVE); URINE PROTEIN NEGATIVE (NEGATIVE); URINE UROBILINOGEN NEGATIVE mg/dL (0.2-1.0)
[2017-11-10] MEDS ORDERED: METOCLOPRAMIDE HCL INJECTION 10 MG/2 ML VIAL IVPUSH ONE (22:23)
[2017-11-10] MEDS ORDERED: SODIUM CHLORIDE 0.9% 1000 ML INFUS.BAG IV ONE (22:23)
[2017-11-10] MEDS ORDERED: KETOROLAC TROMETHAMINE 30 MG/1 ML VIAL IVPUSH ONE (22:23)
[2017-11-10] MEDS ORDERED: METOCLOPRAMIDE HCL INJECTION 10 MG/2 ML VIAL ONE (22:48)
[2017-11-10] MEDS ORDERED: KETOROLAC TROMETHAMINE 30 MG/1 ML VIAL ONE (22:49)
--- NOTE | 2017-11-10 23:09 | PDOC ---
History of Present Illness - General Chief Complaint: Pain Stated Complaint: BACK PAIN Time Seen by Provider: 11/10/17 21:29 - History of Present Illness Initial Comments: 11/10/17 22:48 CHIEF COMPLAINT: low back pain HISTORY OF PRESENT ILLNESS: 57 yo F with hx of celiac disease, anemia, HTN, CAD , PVD s/p right LE stent, cervical cancer (in remission x2 years), kidney stones , migraines, and chronic back pain (followed by pain mgmt "Dr. Oconnell") presents to ED with low back pain radiating down R leg. Patient reports she took a Percocet approximately 3 hours prior to arrival with no relief. She denies any loss of sensation to lower extremities, loss of bowel or bladder function, chest pain, shortness of breath. She reports "I'm starting to have a migraine now." PAST MEDICAL HISTORY: as per HPI FAMILY HISTORY: Denies SOCIAL HISTORY: Denies tobacco, alcohol, illicit drug use. SURGICAL HISTORY: stent placement ALLERGIES: No known drug allergies REVIEW OF SYSTEMS General/Constitutional: Denies fever or chills. Denies weakness, weight change. HEENT: Denies change in vision. Denies ear pain or discharge. Denies sore throat. Cardiovascular: Denies chest pain or shortness of breath. Respiratory: Denies cough, wheezing, or hemoptysis. Gastrointestinal: Denies nausea, vomiting, diarrhea or constipation. Denies rectal bleeding. Genitourinary: Denies dysuria, frequency, or change in urination. Musculoskeletal: Denies joint or muscle swelling or pain. Denies neck or back pain. Skin and breasts: Denies rash or easy bruising. Neurologic: "I'm starting to have a migraine." Denies vertigo, loss of consciousness, or loss of sensation. PHYSICAL EXAM General Appearance: Well-appearing, appropriately dressed. No apparent distress. HEENT: EOMI, PERRLA, normal ENT inspection, normal voice, TMs normal, pharynx normal. No conjunctival pallor. No photophobia, scleral icterus. Neck: Supple. Trachea midline. No tenderness, rigidity, carotid bruit, stridor , lymphadenopathy, or thyromegaly. Respiratory/Chest: Lungs CTAB. No shortness of breath, chest tenderness, respiratory distress, accessory muscle use. No crackles, rales, rhonchi, stridor , wheezing, dullness Cardiovascular: RRR. S1, S2. No JVD, murmur, bradycardia, tachycardia. Vascular Pulses: Dorsalis-Pedis (R): 2+, Dorsalis-Pedis (L): 2+ Gastrointestinal/Abdominal: Normal bowel sounds. Abdomen soft, non-distended. No tenderness or rebound tenderness. No organomegaly, pulsatile mass, guarding , hernia, hepatomegaly, splenomegaly. Musculoskeletal/Extremities: +Straight leg test to R leg, negative to L leg. 5/ 5 strength to L leg. Sensory discrimination intact to b/l LE. Normal inspection. FROM of all extremities, normal capillary refill. Pelvis Stable. No CVA tenderness. No tenderness to extremities, pedal edema, swelling, erythema or deformity. Integumentary: Appropriate color, dry, warm. 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 Fully oriented, alert. Appropriate mood/affect. Motor strength 5/5. No appreciable EOM palsy, facial droop or sensory deficit. 11/10/17 23:10 Past History - Past Medical History Allergies/Adverse Reactions: Allergies Allergy/AdvReac Type Severity Reaction Status Date / Time aspirin Allergy Severe Hives Verified 11/10/17 21:32 lidocaine Allergy Severe Hives Verified 11/10/17 21:32 Penicillins Allergy Severe Hives Verified 11/10/17 21:32 Home Medications: Ambulatory Orders Metoprolol Succinate [Toprol XL -] 25 mg PO DAILY 10/24/12 Omeprazole [Prilosec (RX)] 40 mg PO DAILY 10/24/12 Amlodipine Besylate [Norvasc -] 10 mg PO DAILY 08/25/13 Lipase/Protease/Amylase [Ricki Kaur 36,000 Units Capsule] 1 each PO DAILY Losartan Potassium 50 mg PO DAILY 10/11/15 Pramipexole Dihydrochloride [Mirapex -] 0.75 mg PO DAILY 10/11/15 Pramipexole Dihydrochloride [Mirapex -] 2 mg PO HS 10/11/15 Topiramate 100 mg PO BID 10/11/15 Trazodone HCl [Desyrel -] 50 mg PO HS 10/11/15 Atorvastatin Ca [Lipitor] 40 mg PO HS #30 tablet 01/12/17 Cyclobenzaprine HCl 7.5 mg PO HS PRN #7 tablet 11/11/17 Nitrofurantoin Monohyd/M-Cryst [Macrobid -] 100 mg PO BID #14 capsule 11/11/17 Anemia: No Asthma: Yes Cancer: Yes (CERVICAL CANCER X 2) Cardiac Disorders: No CVA: No COPD: No CHF: No Dementia: No Diabetes: No GI Disorders: Yes (CELIAC DISEASE) Disorders: Yes HTN: Yes Hypercholesterolemia: No Liver Disease: No Seizures: No Thyroid Disease: No - Surgical History Abdominal Surgery: No Appendectomy: No Cardiac Surgery: No Cholecystectomy: No Lung Surgery: No Neurologic Surgery: No Orthopedic Surgery: No - Suicide/Smoking/Psychosocial Hx Smoking History: Never smoked Have you smoked in the past 12 months: No If you are a former smoker, when did you quit?: 15 years ago Information on smoking cessation initiated: No Hx Alcohol Use: No Drug/Substance Use Hx: No Substance Use Type: None Hx Substance Use Treatment: No *Physical Exam - Vital Signs Last Vital Signs Temp Pulse Resp BP Pulse Ox 98.0 F 82 20 148/93 100 11/10/17 21:32 11/10/17 21:32 11/10/17 21:32 11/10/17 21:32 11/10/17 21:32 Medical Decision Making - Medical Decision Making 11/10/17 23:13 57 yo F with hx of celiac disease, anemia, HTN, CAD, PVD s/p right LE stent, cervical cancer (in remission x2 years), kidney stones, migraines, and chronic back pain (followed by pain mgmt "Dr. Oconnell") presents to ED with low back pain radiating down R leg. -UA ordered in triage 11/11/17 00:02 UA + for 3+ leuks, will treat for UTI. *DC/Admit/Observation/Transfer Diagnosis at time of Disposition: Back pain Qualifiers: Back pain location: low back pain Chronicity: acute Back pain laterality: right Sciatica presence: with sciatica Sciatica laterality: sciatica of right side Qualified Code(s): M54.41 - Lumbago with sciatica, right side UTI (urinary tract infection) Qualifiers: Urinary tract infection type: site unspecified Hematuria presence: without hematuria Qualified Code(s): N39.0 - Urinary tract infection, site not specified - Discharge Dispostion Disposition: HOME Condition at time of disposition: Stable Admit: No - Prescriptions Prescriptions: Cyclobenzaprine HCl 7.5 mg PO HS PRN #7 tablet PRN Reason: Back Pain Nitrofurantoin Monohyd/M-Cryst [Macrobid -] 100 mg PO BID #14 capsule - Referrals Referrals: Matthew Wiley MD [Primary Care Provider] - - Patient Instructions Printed Discharge Instructions: DI for Back Pain With Sciatica, DI for Urinary Tract Infection (UTI) Additional Instructions: Please take medications as prescribed. Do NOT drink alcohol, drive, or operate machinery while taking cyclobenzaprine. Follow up with Dr. Whitfield as planned. If you develop ANY loss of sensation to your lower extremities, loss of bowel or bladder function, are unable to walk, or any new or worsening symptoms, pleaes return to the ER. - Post Discharge Activity
[2017-11-10 23:17] LABS: URINE LEUK ESTERASE 3+ (NEGATIVE)
== END 2017-11-11 00:52 | disposition home or self-care (01) ==
LOC: JER 21:23
PROC: 3E0333Z Introduction of Anti-inflammatory into Peripheral Vein, Percutaneous Approach (ICD-10-PCS; principal; 2017-11-10)
PROC: 3E033GC Introduction of Other Therapeutic Substance into Peripheral Vein, Percutaneous Approach (ICD-10-PCS; 2017-11-10)
PROC: 3E033GC Introduction of Other Therapeutic Substance into Peripheral Vein, Percutaneous Approach (ICD-10-PCS; 2017-11-10)
DX: M54.41 Lumbago with sciatica, right side (principal); N39.0 Urinary tract infection, site not specified; I25.10 Atherosclerotic heart disease of native coronary artery without angina pectoris; I10 Essential (primary) hypertension; I73.89 Other specified peripheral vascular diseases; Z95.828 Presence of other vascular implants and grafts; G43.909 Migraine, unspecified, not intractable, without status migrainosus; Z87.442 Personal history of urinary calculi; Z85.41 Personal history of malignant neoplasm of cervix uteri; Z87.898 Personal history of other specified conditions
CPT/HCPCS: 81003; 81015; 99282-25

== ENCOUNTER 2018-01-02 11:25 | Emergency (ER) | payer OTHER ==
[2018-01-02 11:36] VITALS: BMI 23.6
[2018-01-02] MEDS ORDERED: traMADol HCL 50 MG TABLET PO ONE (12:03)
--- NOTE | 2018-01-02 12:05 | PDOC ---
History of Present Illness - General Chief Complaint: Pain Stated Complaint: RT LEG PAIN Time Seen by Provider: 01/02/18 11:39 History Source: Patient - History of Present Illness Occurred: reports: other Lower Extremity Pain Location: right: leg Past History - Past Medical History Allergies/Adverse Reactions: Allergies Allergy/AdvReac Type Severity Reaction Status Date / Time aspirin Allergy Severe Hives Verified 01/02/18 11:36 lidocaine Allergy Severe Hives Verified 01/02/18 11:36 Penicillins Allergy Severe Hives Verified 01/02/18 11:36 Home Medications: Ambulatory Orders Metoprolol Succinate [Toprol XL -] 25 mg PO DAILY 10/24/12 Omeprazole [Prilosec (RX)] 40 mg PO DAILY 10/24/12 Amlodipine Besylate [Norvasc -] 10 mg PO DAILY 08/25/13 Losartan Potassium 50 mg PO DAILY 10/11/15 Pramipexole Dihydrochloride [Mirapex -] 0.75 mg PO DAILY 10/11/15 Pramipexole Dihydrochloride [Mirapex -] 2 mg PO HS 10/11/15 Topiramate 100 mg PO BID 10/11/15 traZODone HCL [Desyrel -] 50 mg PO HS 10/11/15 Atorvastatin Ca [Lipitor] 40 mg PO HS #30 tablet 01/12/17 Acetaminophen [Tylenol -] 2 tab PO Q6H #30 tablet 01/02/18 Oxycodone HCl/Acetaminophen [Percocet 5-325 mg Tablet] 1 tab PO Q6H 01/02/18 Anemia: No Asthma: Yes Cancer: Yes (CERVICAL CANCER X 2) Cardiac Disorders: No CVA: No COPD: No CHF: No DVT: Yes Dementia: No Diabetes: No GI Disorders: Yes (CELIAC DISEASE) Disorders: Yes HTN: Yes Hypercholesterolemia: No Liver Disease: No Seizures: No Thyroid Disease: No - Surgical History Abdominal Surgery: No Appendectomy: No Cardiac Surgery: No Cholecystectomy: No Lung Surgery: No Neurologic Surgery: No Orthopedic Surgery: No - Suicide/Smoking/Psychosocial Hx Smoking History: Never smoked Have you smoked in the past 12 months: No If you are a former smoker, when did you quit?: 15 years ago Information on smoking cessation initiated: No Hx Alcohol Use: No Drug/Substance Use Hx: No Substance Use Type: None Hx Substance Use Treatment: No Review of Systems - Review of Systems Constitutional: No: Chills, Fever Respiratory: No: Shortness of Breath Cardiac (ROS): No: Chest Pain, Palpitations ABD/GI: Yes: Nausea. No: Constipated, Diarrhea, Vomiting, Abdominal cramping : No: Dysuria Musculoskeletal: No: Joint Pain, Joint Swelling, Muscle Weakness Neurological: No: Numbness, Tingling, Weakness *Physical Exam - Vital Signs Last Vital Signs Temp Pulse Resp BP Pulse Ox 97.9 F 82 18 115/70 99 01/02/18 11:31 01/02/18 11:31 01/02/18 11:31 01/02/18 11:31 01/02/18 11:31 - Physical Exam General Appearance: Yes: Appropriately Dressed. No: Apparent Distress HEENT: positive: Normal Voice Neck: positive: Supple Respiratory/Chest: positive: Lungs Clear, Normal Breath Sounds. negative: Respiratory Distress Cardiovascular: positive: Regular Rate, S1, S2 Gastrointestinal/Abdominal: positive: Soft. negative: Tender Extremity: positive: Tender (to R calf, no swelling, DT/PT pulses intact b/l with warm skin, no erythema). negative: Swelling Integumentary: positive: Dry, Warm Neurologic: positive: Fully Oriented, Alert, Normal Mood/Affect, Other (no SLR, able to bear weight) ED Treatment Course - LABORATORY CBC & Chemistry Diagram: 01/02/18 12:16 01/02/18 12:16 Medical Decision Making - Medical Decision Making 01/02/18 12:07 57-year-old female, history of asthma, celiac disease, JIMMY, cervical cancer remotely, kidney stones, chronic back pain, DJD, ?lumbar radiculopathy, HTN, PAD , s/p RLE stent placement in 2014 at [facility], on plavix, here with severe right lower extremity pain. Patient reports pain started 1 week ago, located to right gluteus and radiates to right leg, worse to medial thigh and right calf. Describes pain as achy with an intensity of 10 out of 10 and present whether at rest or on exertion. Unsure if pain similar to PAD pain. No back pain, sensory changes, b/b incontinence, saddle anesthesia, LE swelling, redness, f/c chest pain, shortness of breath or palpitations See exam RLE pain Possible 2/2 PAD (s/p RLE stent in 2014 w/ atherosclerotic disease w/ biphasic waveform in mid to distal SFA on US 02/08-pedal pulses intact today) vs radiculopathy vs arthritis, no e/o infxn at this time -pain control -arterial/venous dopplers -labs -dispo pending 01/02/18 15:01 Labs unremarkable. Ultrasound negative for DVT and there is "no evidence of hemodynamically significant stenosis" on arterial Doppler. Patient significantly improved with pain meds in ED ad able to bear weight on her own. Stable for discharge with pain control and have to follow up with PMD this week 01/02/18 15:03 *DC/Admit/Observation/Transfer Diagnosis at time of Disposition: Pain of right lower extremity - Discharge Dispostion Disposition: HOME Condition at time of disposition: Improved - Prescriptions Prescriptions: Acetaminophen [Tylenol -] 2 tab PO Q6H #30 tablet - Referrals Referrals: Matthew Wiley MD [Primary Care Provider] - - Patient Instructions Additional Instructions: It does not appear that youl have any blood clots or acute blockages in your right leg Your pain is possibly arthritic in nature or related to your chronic back pain. Take Tylenol as prescribed. Please follow-up with your PMD this week - Post Discharge Activity
[2018-01-02] MEDS ORDERED: ONDANSETRON 4 MG/2 ML VIAL IVPUSH ONE (12:07)
[2018-01-02] MEDS ORDERED: ONDANSETRON 4 MG/2 ML VIAL ONE (12:10)
[2018-01-02] MEDS ORDERED: traMADol HCL 50 MG TABLET ONE (12:10)
[2018-01-02 12:24] LABS: BASO % 1.1 % (0-2.0); EOS % 3.2 % (0-4.5); HEMATOCRIT 31.3 % (32.4-45.2); HEMOGLOBIN 10.2 GM/dL (10.7-15.3); LYMPH % 19.1 % (8-40); MCH 26.4 pg (25.7-33.7); MCHC 32.6 g/dl (32.0-36.0); MEAN CELL VOLUME 80.9 fl (80-96); MONO % 8.3 % (3.8-10.2); NEUT % 68.3 % (42.8-82.8); PLATELET COUNT 339 K/MM3 (134-434); RBC 3.87 M/mm3 (3.60-5.2); RDW 17.7 % (11.6-15.6)
[2018-01-02 12:37] LABS: INR 1.04 (0.82-1.09); PROTHROMBIN TIME (PATIENT) 11.7 SEC (9.98-11.88)
[2018-01-02 12:47] LABS: ALBUMIN 3.6 g/dl (3.4-5.0); ANION GAP 8 (8-16); BILIRUBIN,TOTAL 0.2 mg/dL (0.2-1.0); BLOOD UREA NITROGEN 18 mg/dL (7-18); CALCIUM 8.8 mg/dL (8.5-10.1); CHLORIDE 109 mmol/L (98-107); CO2 24 mmol/L (21-32); CREATININE 0.7 mg/dL (0.55-1.02); GLUCOSE,RANDOM 90 mg/dL (74-106); POTASSIUM 4.2 mmol/L (3.5-5.1); SGOT/AST 32 U/L (15-37); SGPT/ALT 21 U/L (12-78); SODIUM 141 mmol/L (136-145); TOT PROT 7.2 g/dl (6.4-8.2)
[2018-01-02 12:48] LABS: ALK PHOS 130 U/L (45-117)
[2018-01-02] MEDS ORDERED: ACETAMINOPHEN 1000 MG/100 ML VIAL (NON FORMULARY) IVPB ONE (13:27)
[2018-01-02] MEDS ORDERED: ACETAMINOPHEN INJECTION 100 ML IVPB ONE (13:29)
[2018-01-02 15:28] VITALS: BP 121/76; PULSE 68; TEMP 98.2
== END 2018-01-02 15:28 | disposition home or self-care (01) ==
LOC: JER 11:25
PROC: 3E033GC Introduction of Other Therapeutic Substance into Peripheral Vein, Percutaneous Approach (ICD-10-PCS; principal; 2018-01-02)
PROC: 3E033NZ Introduction of Analgesics, Hypnotics, Sedatives into Peripheral Vein, Percutaneous Approach (ICD-10-PCS; 2018-01-02)
DX: M79.604 Pain in right leg (principal); I73.9 Peripheral vascular disease, unspecified; Z79.01 Long term (current) use of anticoagulants; Z95.828 Presence of other vascular implants and grafts; J45.909 Unspecified asthma, uncomplicated; K90.0 Celiac disease; D50.9 Iron deficiency anemia, unspecified; Z85.41 Personal history of malignant neoplasm of cervix uteri
CPT/HCPCS: 36415; 80053; 85025; 85610; 93926-TC; 93971-TC; 96374; 96375; 99282-25

== ENCOUNTER 2018-04-30 21:56 | Emergency (ER) | payer OTHER ==
[2018-04-30 21:59] VITALS: BP 153/79; PULSE 94; TEMP 98; BMI 24.7
--- NOTE | 2018-04-30 23:06 | PDOC ---
History of Present Illness <Calista Amezcua - Last Filed: 05/01/18 01:21> - General History Source: Patient Exam Limitations: No Limitations - History of Present Illness Initial Comments: The patient is a 58 year old female with a significant past medical history of htn, asthma, and migraines who presents to the emergency department for evaluation of lower extremity rash. Pt reports onset of Petechial rash on the dorsal side of bilateral lower extremities beginning this morning. She reports bilateral edema of ankles which prompted her to visit the ED for further evaluation. The patient reports an associated symptom of shortness of breath, which she states is due to her recent weight gain. Of note, the patient plans to follow up with her pcp on Wednesday. The patient denies chest pain, abdominal pain, use of blood thinners, kidney issues, headache, dizziness, fever, chills, nausea, vomiting, and any urinary/ bowel symptoms. Allergies: aspirin, lidocaine, penicillins Social History: No reported alcohol, cigarette, or drug use. PCP: Dr. Wiley <Frank Hickey - Last Filed: 05/01/18 02:54> - General Chief Complaint: Rash Stated Complaint: LEG PAIN Time Seen by Provider: 04/30/18 22:46 Past History - Past Medical History Anemia: No Asthma: Yes Cancer: Yes (CERVICAL CANCER X 2) Cardiac Disorders: No CVA: No COPD: No CHF: No DVT: Yes Dementia: No Diabetes: No GI Disorders: Yes (CELIAC DISEASE) Disorders: Yes HTN: Yes Hypercholesterolemia: No Liver Disease: No Seizures: No Thyroid Disease: No - Surgical History Abdominal Surgery: No Appendectomy: No Cardiac Surgery: No Cholecystectomy: No Lung Surgery: No Neurologic Surgery: No Orthopedic Surgery: No - Suicide/Smoking/Psychosocial Hx Smoking History: Never smoked Have you smoked in the past 12 months: No If you are a former smoker, when did you quit?: 15 years ago Information on smoking cessation initiated: No Hx Alcohol Use: No Drug/Substance Use Hx: No Substance Use Type: None Hx Substance Use Treatment: No <Calista Amezcua - Last Filed: 05/01/18 01:21> <Frank Hickey - Last Filed: 05/01/18 02:54> - Past Medical History Allergies/Adverse Reactions: Allergies Allergy/AdvReac Type Severity Reaction Status Date / Time aspirin Allergy Severe Hives Verified 04/30/18 21:59 lidocaine Allergy Severe Hives Verified 04/30/18 21:59 Penicillins Allergy Severe Hives Verified 04/30/18 21:59 Home Medications: Ambulatory Orders Metoprolol Succinate [Toprol XL -] 25 mg PO DAILY 10/24/12 Omeprazole [Prilosec (RX)] 40 mg PO DAILY 10/24/12 Amlodipine Besylate [Norvasc -] 10 mg PO DAILY 08/25/13 Losartan Potassium 50 mg PO DAILY 10/11/15 Pramipexole Dihydrochloride [Mirapex -] 0.75 mg PO DAILY 10/11/15 Pramipexole Dihydrochloride [Mirapex -] 2 mg PO HS 10/11/15 Topiramate 100 mg PO BID 10/11/15 traZODone HCL [Desyrel -] 50 mg PO HS 10/11/15 Atorvastatin Ca [Lipitor] 40 mg PO HS #30 tablet 01/12/17 Acetaminophen [Tylenol -] 2 tab PO Q6H #30 tablet 01/02/18 Oxycodone HCl/Acetaminophen [Percocet 5-325 mg Tablet] 1 tab PO Q6H 01/02/18 Review of Systems - Review of Systems Able to Perform ROS?: Yes Comments:: GENERAL/CONSTITUTIONAL: No fever or chills. No weakness. HEAD, EYES, EARS, NOSE AND THROAT: No change in vision. No ear pain or discharge. No sore throat. CARDIOVASCULAR: (+)Shortness of breath. No chest pain. RESPIRATORY: No cough, wheezing, or hemoptysis. GASTROINTESTINAL: No nausea, vomiting, diarrhea or constipation. GENITOURINARY: No dysuria, frequency, or change in urination. MUSCULOSKELETAL: No joint or muscle swelling or pain. No neck or back pain. SKIN: (+)bilateral ankle rash. NEUROLOGIC: No headache, vertigo, loss of consciousness, or change in strength/ sensation. ENDOCRINE: No increased thirst. No abnormal weight change. HEMATOLOGIC/LYMPHATIC: No anemia, easy bleeding, or history of blood clots. ALLERGIC/IMMUNOLOGIC: No hives or skin allergy. <Frank Hickey - Last Filed: 05/01/18 02:54> *Physical Exam - Vital Signs Last Vital Signs Temp Pulse Resp BP Pulse Ox 98.0 F 94 H 16 153/79 100 07/07/18 21:58 04/30/18 21:58 04/30/18 21:58 04/30/18 21:58 04/30/18 21:58 <Calista Amezcua - Last Filed: 05/01/18 01:21> - Vital Signs Last Vital Signs Temp Pulse Resp BP Pulse Ox 98.0 F 94 H 16 153/79 100 04/30/18 21:58 04/30/18 21:58 04/30/18 21:58 04/30/18 21:58 04/30/18 21:58 - Physical Exam Comments: GENERAL: Awake, alert, and fully oriented, in no acute distress HEAD: No signs of trauma EYES: PERRLA, EOMI, sclera anicteric, conjunctiva clear ENT: Auricles normal inspection, hearing grossly normal, nares patent, oropharynx clear without exudates. Moist mucosa NECK: Normal ROM, supple. LUNGS: (+)crackles in right lung HEART: Regular rate and rhythm, normal S1 and S2, no murmurs, rubs or gallops ABDOMEN: Soft, nontender, normoactive bowel sounds. No guarding, no rebound. No masses EXTREMITIES: (+)2+ pitting edema, 3rd of lower extremities. NEUROLOGICAL: Cranial nerves II through XII grossly intact. Normal speech, normal gait SKIN: Warm, Dry, normal turgor, no rashes or lesions noted. <Frank Hickey - Last Filed: 05/01/18 02:54> ED Treatment Course - LABORATORY CBC & Chemistry Diagram: 04/30/18 23:00 04/30/18 23:00 <Calista Amezcua - Last Filed: 05/01/18 01:21> - LABORATORY CBC & Chemistry Diagram: 04/30/18 23:00 04/30/18 23:00 - ADDITIONAL ORDERS Additional order review: Laboratory Results 04/30/18 04/30/18 04/30/18 23:24 23:00 23:00 PT with INR 12.10 INR 1.07 PTT (Actin FS) 26.0 L Sodium 142 Potassium 3.7 Chloride 110 H Carbon Dioxide 25 Anion Gap 7 L BUN 18 Creatinine 0.8 Creat Clearance w eGFR > 60 Random Glucose 115 H Calcium 8.7 Total Bilirubin 0.1 L AST 26 ALT 19 Alkaline Phosphatase 137 H Total Protein 7.5 Albumin 3.8 04/30/18 23:00 RBC 3.60 MCV 80.4 MCHC 32.8 RDW 14.9 D MPV 6.8 L Neutrophils % 71.1 Lymphocytes % 16.4 Monocytes % 7.4 Eosinophils % 3.6 Basophils % 1.5 - Medications Given in the ED: ED Medications Discontinued Medications Generic Name Dose Route Start Last Admin Trade Name Letitia PRN Reason Stop Dose Admin Acetaminophen/Butalbital/Caffeine 2 tablet 05/01/18 01:04 05/01/18 01:13 Fioricet - PO 05/01/18 01:05 2 tablet ONCE ONE Administration <Frank Hickey - Last Filed: 05/01/18 02:54> Medical Decision Making - Medical Decision Making 04/30/18 23:20 Pt has a petechial rash on her bilateral ankles. She also has pitting edema of her lower legs. She has never had this in the past. 05/01/18 01:22 Pt's labs are normal. SHe is asking for a fioricet for her BAZAN; she has petechial rash, NOS. I will have her follow with her PMD Inez. <Calista Amezcua - Last Filed: 05/01/18 01:21> *DC/Admit/Observation/Transfer - Discharge Dispostion Decision to Admit order: No <Calista Amezcua - Last Filed: 05/01/18 01:21> - Attestations Scribe Attestion: Documentation prepared by Frank Hickey, acting as hospital medical assistant for Calista Amezcua MD. <Frank Hickey - Last Filed: 05/01/18 02:54> Diagnosis at time of Disposition: Headache, Petechial rash - Discharge Dispostion Disposition: HOME Condition at time of disposition: Stable - Referrals Referrals: Matthew Wiley MD [Staff Physician] - - Patient Instructions Printed Discharge Instructions: DI for Petechiae
[2018-04-30 23:31] LABS: BASO % 1.5 % (0-2.0); EOS % 3.6 % (0-4.5); HEMATOCRIT 28.9 % (32.4-45.2); HEMOGLOBIN 9.5 GM/dL (10.7-15.3); LYMPH % 16.4 % (8-40); MCH 26.4 pg (25.7-33.7); MCHC 32.8 g/dl (32.0-36.0); MEAN CELL VOLUME 80.4 fl (80-96); MEAN PLT VOLUME 6.8 fl (7.5-11.1); MONO % 7.4 % (3.8-10.2); NEUT % 71.1 % (42.8-82.8); PLATELET COUNT 419 K/MM3 (134-434); RDW 14.9 % (11.6-15.6); WHITE BLOOD COUNT 7.9 K/mm3 (4.0-10.0)
[2018-04-30 23:58] LABS: ALBUMIN 3.8 g/dl (3.4-5.0); ALK PHOS 137 U/L (45-117); ANION GAP 7 (8-16); BILIRUBIN,TOTAL 0.1 mg/dL (0.2-1.0); BLOOD UREA NITROGEN 18 mg/dL (7-18); CALCIUM 8.7 mg/dL (8.5-10.1); CHLORIDE 110 mmol/L (98-107); CO2 25 mmol/L (21-32); CREATININE 0.8 mg/dL (0.55-1.02); GLUCOSE,RANDOM 115 mg/dL (74-106); POTASSIUM 3.7 mmol/L (3.5-5.1); SGOT/AST 26 U/L (15-37); SGPT/ALT 19 U/L (12-78); SODIUM 142 mmol/L (136-145); TOT PROT 7.5 g/dl (6.4-8.2)
[2018-05-01 00:58] LABS: INR 1.07 (0.82-1.09); PROTHROMBIN TIME (PATIENT) 12.1 SEC (9.7-13.0)
[2018-05-01] MEDS ORDERED: ACETAMINOPHEN/CAFFEINE/BUTALBITAL 1 TAB PO ONE (01:04)
[2018-05-01] MEDS ORDERED: ACETAMINOPHEN/CAFFEINE/BUTALBITAL 1 TAB ONE (01:20)
== END 2018-05-01 01:32 | disposition home or self-care (01) ==
LOC: JER 21:56 → JERFT 21:56 → JER 05-01 01:32
DX: R51 Headache (principal); R21 Rash and other nonspecific skin eruption; Z87.19 Personal history of other diseases of the digestive system; I10 Essential (primary) hypertension; J45.909 Unspecified asthma, uncomplicated; Z85.41 Personal history of malignant neoplasm of cervix uteri
CPT/HCPCS: 36415; 80053; 85025; 85610; 85730; 99281-25

== ENCOUNTER 2018-12-01 11:12 | Emergency (ER) | payer OTHER ==
[2018-12-01 11:23] VITALS: BP 132/50; PULSE 57; TEMP 98.3; BMI 26.2
--- NOTE | 2018-12-01 11:50 | PDOC ---
History of Present Illness - General Chief Complaint: Migraine Headache Stated Complaint: MIGRANE HEADACHE, RT ELBOW INJURY Time Seen by Provider: 12/01/18 11:44 History Source: Patient - History of Present Illness Initial Comments: 12/01/18 12:16 58-year-old female complaining of migraine headache (similar to her previous migraine headaches) complaining of photophobia, nausea for 3 days. Patient reports that she ran out of her Fioricet and hasn't taken it for many days. Patient also is complaining of right elbow pain. Patient reports that she has been helping her mother unsure if she strained right elbow. Past medical history of celiac disease, kidney stones Past History - Past Medical History Allergies/Adverse Reactions: Allergies Allergy/AdvReac Type Severity Reaction Status Date / Time aspirin Allergy Severe Hives Verified 12/01/18 11:19 lidocaine Allergy Severe Hives Verified 12/01/18 11:19 Penicillins Allergy Severe Hives Verified 12/01/18 11:19 Home Medications: Ambulatory Orders Metoprolol Succinate [Toprol XL -] 25 mg PO DAILY 10/24/12 Omeprazole [Prilosec (RX)] 40 mg PO DAILY 10/24/12 Amlodipine Besylate [Norvasc -] 10 mg PO DAILY 08/25/13 Losartan Potassium 50 mg PO DAILY 10/11/15 Pramipexole Dihydrochloride [Mirapex -] 0.75 mg PO DAILY 10/11/15 Pramipexole Dihydrochloride [Mirapex -] 2 mg PO HS 10/11/15 Topiramate 100 mg PO BID 10/11/15 traZODone HCL [Desyrel -] 50 mg PO HS 10/11/15 Atorvastatin Ca [Lipitor] 40 mg PO HS #30 tablet 01/12/17 Acetaminophen [Tylenol -] 2 tab PO Q6H #30 tablet 01/02/18 Oxycodone HCl/Acetaminophen [Percocet 5-325 mg Tablet] 1 tab PO Q6H 01/02/18 Acetaminophen/Caffeine/Butalb [Fioricet -] 1 tab PO Q6H PRN #14 tablet MDD 4 05/12 Anemia: No Asthma: Yes Cancer: Yes (CERVICAL CANCER X 2) Cardiac Disorders: No CVA: No COPD: No CHF: No DVT: Yes Dementia: No Diabetes: No GI Disorders: Yes (CELIAC DISEASE) Disorders: Yes HTN: Yes Hypercholesterolemia: No Liver Disease: No Seizures: No Thyroid Disease: No - Surgical History Abdominal Surgery: No Appendectomy: No Cardiac Surgery: No Cholecystectomy: No Lung Surgery: No Neurologic Surgery: No Orthopedic Surgery: No - Suicide/Smoking/Psychosocial Hx Smoking History: Never smoked Have you smoked in the past 12 months: No If you are a former smoker, when did you quit?: 15 years ago Information on smoking cessation initiated: No Hx Alcohol Use: No Drug/Substance Use Hx: No Substance Use Type: None Hx Substance Use Treatment: No Review of Systems - Review of Systems Able to Perform ROS?: Yes Is the patient limited Turkish proficient: No Constitutional: No: Symptoms Reported, See HPI, Chills, Diaphoresis, Fever, Loss of Appetite (I need to do A dollars ly), Malaise, Night Sweats, Weakness, Weight Stable, Unintentional Wgt. Loss, Unexplained wgt Loss, Other HEENTM: Yes: Other (photophobia ) Musculoskeletal: Yes: Other (elbow pain). No: Symptoms Reported, See HPI, Back Pain, Gout, Joint Pain, Joint Swelling, Muscle Pain, Muscle Weakness, Neck Pain , Joint Stiffness Neurological: Yes: Headache. 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 reevaluate Elbow xray 12/01/18 14:23 patient reports feeling better. will d/c home *DC/Admit/Observation/Transfer Diagnosis at time of Disposition: Right elbow pain Migraine headache Qualifiers: Migraine type: unspecified Status migrainosus presence: without status migrainosus Intractability: not intractable Qualified Code(s): G43.909 - Migraine, unspecified, not intractable, without status migrainosus - Discharge Dispostion Disposition: HOME - Prescriptions Prescriptions: Acetaminophen/Caffeine/Butalb [Fioricet -] 1 tab PO Q6H PRN #14 tablet MDD 4 PRN Reason: Headache - Referrals - Patient Instructions Printed Discharge Instructions: Migraine Headaches (Alternative Therapy) Additional Instructions: drink plenty of fluids. take fiorecet as prescribed as needed . follow up with a neurologist Additional Instructions: * Please call your personal physician to report your Emergency Department visit and to report your progress, if any. * If there is no improvement in symptoms in 2 days call your physician. * Return to the Emergency Department for any worsening symptoms. - Post Discharge Activity Forms/Work/School Notes: Back to Work
[2018-12-01] MEDS ORDERED: ACETAMINOPHEN/CAFFEINE/BUTALBITAL 1 TAB PO ONE (12:00)
[2018-12-01] MEDS ORDERED: METOCLOPRAMIDE HCL INJECTION 10 MG/2 ML VIAL IVPB ONE (12:00)
[2018-12-01] MEDS ORDERED: SODIUM CHLORIDE 0.9% 500 ML INFUS.BAG IV ONE (12:00)
[2018-12-01] MEDS ORDERED: METOCLOPRAMIDE HCL INJECTION 10 MG/2 ML VIAL ONE (12:11)
[2018-12-01] MEDS ORDERED: ACETAMINOPHEN/CAFFEINE/BUTALBITAL 1 TAB ONE (12:11)
== END 2018-12-01 15:18 | disposition home or self-care (01) ==
LOC: JERFT 11:12
DX: G43.909 Migraine, unspecified, not intractable, without status migrainosus (principal)
CPT/HCPCS: 73070-TC-RT-FY; 99281-25

== ENCOUNTER 2019-02-08 14:50 | Emergency (ER) | payer OTHER ==
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
[2019-02-08 15:07] VITALS: BP 170/68; PULSE 69; TEMP 98.1; BMI 25.7
[2019-02-08] MEDS ORDERED: ACETAMINOPHEN/CAFFEINE/BUTALBITAL 1 TAB PO ONE (15:46)
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
[2019-02-08] MEDS ORDERED: ACETAMINOPHEN/CAFFEINE/BUTALBITAL 1 TAB ONE (15:50)
== END 2019-02-08 16:14 | disposition home or self-care (01) ==
LOC: JERFT 14:50
DX: S20.211A Contusion of right front wall of thorax, initial encounter (principal); W21.03XA Struck by baseball, initial encounter; Y93.89 Activity, other specified; Y92.320 Baseball field as the place of occurrence of the external cause; Z87.891 Personal history of nicotine dependence; I10 Essential (primary) hypertension; Z86.718 Personal history of other venous thrombosis and embolism; Z85.41 Personal history of malignant neoplasm of cervix uteri
CPT/HCPCS: 71101-TC-RT-FY; 99281-25

== ENCOUNTER 2019-02-15 23:40 | Emergency (ER) | payer OTHER ==
[2019-02-16 00:42] VITALS: BP 163/54; PULSE 74; TEMP 98.4; BMI 24.9
--- NOTE | 2019-02-16 01:01 | PDOC ---
*Physical Exam - Vital Signs Last Vital Signs Temp Pulse Resp BP Pulse Ox 98.4 F 74 18 163/54 L 97 02/15/19 23:50 02/15/19 23:50 02/15/19 23:50 02/15/19 23:50 02/15/19 23:50 ED Treatment Course - LABORATORY CBC & Chemistry Diagram: 02/16/19 02:30 02/16/19 02:30 Medical Decision Making - Medical Decision Making 02/16/19 01:01 Patient seen by the advanced practice provider under my direct supervision. Ancillary testing reviewed as necessary. I agree with plan as outlined by the advanced practice provider. *DC/Admit/Observation/Transfer Diagnosis at time of Disposition: Abdominal pain, vomiting, and diarrhea - Discharge Dispostion Condition at time of disposition: Fair - Referrals Referrals: Matthew Wiley MD [Primary Care Provider] - - Patient Instructions - Post Discharge Activity
[2019-02-16] MEDS ORDERED: FAMOTIDINE 20 MG/50 ML IVPB 20 MG/50 ML MG IVPB ONE ×2 (01:20→03:31)
[2019-02-16] MEDS ORDERED: ACETAMINOPHEN 1000 MG/100 ML VIAL (NON FORMULARY) IVPB ONE (01:20)
[2019-02-16] MEDS ORDERED: SODIUM CHLORIDE 1,000 ML IV STA (01:20)
--- NOTE | 2019-02-16 01:20 | PDOC ---
History of Present Illness - General Chief Complaint: Diarrhea Stated Complaint: DIARRHEA Time Seen by Provider: 02/16/19 00:57 Past History - Past Medical History Allergies/Adverse Reactions: Allergies Allergy/AdvReac Type Severity Reaction Status Date / Time aspirin Allergy Severe Hives Verified 02/16/19 00:42 lidocaine Allergy Severe Hives Verified 02/16/19 00:42 Penicillins Allergy Severe Hives Verified 02/16/19 00:42 Home Medications: Ambulatory Orders Metoprolol Succinate [Toprol XL -] 25 mg PO DAILY 10/24/12 Omeprazole [Prilosec (RX)] 40 mg PO DAILY 10/24/12 Amlodipine Besylate [Norvasc -] 10 mg PO DAILY 08/25/13 Losartan Potassium 50 mg PO DAILY 10/11/15 Pramipexole Dihydrochloride [Mirapex -] 0.75 mg PO DAILY 10/11/15 Pramipexole Dihydrochloride [Mirapex -] 2 mg PO HS 10/11/15 Topiramate 100 mg PO BID 10/11/15 traZODone HCL [Desyrel -] 50 mg PO HS 10/11/15 Atorvastatin Ca [Lipitor] 40 mg PO HS #30 tablet 01/12/17 Acetaminophen [Tylenol -] 2 tab PO Q6H #30 tablet 01/02/18 Oxycodone HCl/Acetaminophen [Percocet 5-325 mg Tablet] 1 tab PO Q6H 01/02/18 Acetaminophen/Caffeine/Butalb [Fioricet -] 1 tab PO Q6H PRN #14 tablet MDD 4 05/12 Spirometer/Drug Delivery Adapt [Mistassist Kit] 1 each MC Q1H #1 each 02/08/19 Ondansetron [Zofran Odt -] 4 mg SL TID #10 od.tablet 02/16/19 traMADol HCL [Ultram -] 50 mg PO BID #10 tablet MDD 2 02/16/19 Anemia: No Asthma: Yes Cancer: Yes (CERVICAL CANCER X 2) Cardiac Disorders: No CVA: No COPD: No CHF: No DVT: Yes Dementia: No Diabetes: No GI Disorders: Yes (CELIAC DISEASE) Disorders: Yes HTN: Yes Hypercholesterolemia: No Liver Disease: No Seizures: No Thyroid Disease: No - Surgical History Abdominal Surgery: No Appendectomy: No Cardiac Surgery: No Cholecystectomy: No Lung Surgery: No Neurologic Surgery: No Orthopedic Surgery: No - Suicide/Smoking/Psychosocial Hx Smoking History: Never smoked Have you smoked in the past 12 months: No If you are a former smoker, when did you quit?: 15 years ago Information on smoking cessation initiated: No Hx Alcohol Use: No Drug/Substance Use Hx: No Substance Use Type: None Hx Substance Use Treatment: No *Physical Exam - Vital Signs Last Vital Signs Temp Pulse Resp BP Pulse Ox 98.4 F 74 18 163/54 L 97 02/15/19 23:50 02/15/19 23:50 02/15/19 23:50 02/15/19 23:50 02/15/19 23:50 ED Treatment Course - LABORATORY CBC & Chemistry Diagram: 02/16/19 02:30 02/16/19 02:30 *DC/Admit/Observation/Transfer Diagnosis at time of Disposition: Abdominal pain, vomiting, and diarrhea - Discharge Dispostion Disposition: HOME Condition at time of disposition: Fair Decision to Admit order: No - Prescriptions Prescriptions: traMADol HCL [Ultram -] 50 mg PO BID #10 tablet MDD 2 - Referrals Referrals: Matthew Wiley MD [Primary Care Provider] - - Patient Instructions Printed Discharge Instructions: DI for Viral Gastroenteritis -- Adult Additional Instructions: You have vomiting, and diarrhea. You CT scan and abdomen US were normal today Take Tylenol 650mg every 4 hours as needed for pain If you have break through pain, you may take a Tramadol Take Zofran as needed for nausea every 8 hours. Avoid all dairy products until 48 hours after the vomiting/diarrhea has resolved. Eat a bland diet including apple sauce, toast, bananas, and plain rice Drink plenty of fluids including pedialyte, watered down juices and water Follow up with your primary care doctor this week Return to the ED if you develop fevers, abdominal pain, worsening vomiting, or if you have any changes in your symptoms. - Post Discharge Activity
[2019-02-16] MEDS ORDERED: ONDANSETRON 4 MG/2 ML VIAL IVPUSH ONE (01:23)
[2019-02-16 02:40] LABS: BASO % 1.1 % (0-2.0); EOS % 2.5 % (0-4.5); HEMATOCRIT 26.5 % (32.4-45.2); HEMOGLOBIN 8.5 GM/dL (10.7-15.3); LYMPH % 18.9 % (8-40); MCH 23.4 pg (25.7-33.7); MEAN CELL VOLUME 73.3 fl (80-96); MEAN PLT VOLUME 7.6 fl (7.5-11.1); MONO % 7.7 % (3.8-10.2); NEUT % 69.8 % (42.8-82.8); PLATELET COUNT 378 K/MM3 (134-434); RBC 3.62 M/mm3 (3.60-5.2); RDW 17.6 % (11.6-15.6); WHITE BLOOD COUNT 6.7 K/mm3 (4.0-10.0)
[2019-02-16 03:07] LABS: ALK PHOS 120 U/L (45-117); ANION GAP 7 MMOL/L (8-16); BILIRUBIN,TOTAL 0.1 mg/dL (0.2-1); BLOOD UREA NITROGEN 15 mg/dL (7-18); CALCIUM 7.1 mg/dL (8.5-10.1); CHLORIDE 116 mmol/L (98-107); CO2 20 mmol/L (21-32); CREATININE 0.5 mg/dL (0.55-1.3); GLUCOSE,RANDOM 83 mg/dL (74-106); LIPASE 95 U/L (73-393); POTASSIUM 3.3 mmol/L (3.5-5.1); SGOT/AST 23 U/L (15-37); SGPT/ALT 15 U/L (13-61); SODIUM 144 mmol/L (136-145); TOT PROT 6.2 g/dl (6.4-8.2)
[2019-02-16 03:25] LABS: INR 1.06 (0.83-1.09); PROTHROMBIN TIME (PATIENT) 12.5 SEC (9.7-13.0)
[2019-02-16] MEDS ORDERED: ONDANSETRON 4 MG/2 ML VIAL ONE (03:31)
[2019-02-16] MEDS ORDERED: ACETAMINOPHEN INJECTION 100 ML IVPB ONE (03:50)
[2019-02-16 04:23] LABS: EPI CELLS 0.9 /HPF (0-5/HPF); PH,URINE 5.5 (5.0-8.0); URINE APPEARANCE CLOUDY; URINE BACTERIA >9000 /hpf (NEGATIVE); URINE BILIRUBIN NEGATIVE (NEGATIVE); URINE CASTS 13 /lpf (0-8); URINE COLOR YELLOW; URINE GLUCOSE (UA) NEGATIVE (NEGATIVE); URINE KETONE NEGATIVE (NEGATIVE); URINE LEUK ESTERASE 2+ (NEGATIVE); URINE NITRITE POSITIVE (NEGATIVE); URINE PROTEIN NEGATIVE (NEGATIVE); URINE RBC 4 /hpf (0-4); URINE UROBILINOGEN 0.2 mg/dL (0.2-1.0); URINE WBC 49 /hpf (0-5)
[2019-02-16] MEDS ORDERED: traMADol HCL 50 MG TABLET PO ONE (06:13)
[2019-02-16] MEDS ORDERED: traMADol HCL 50 MG TABLET ONE (06:37)
--- NOTE | 2019-02-16 12:05 | EKG ---
Test Reason : Blood Pressure : / mmHG Vent. Rate : 056 BPM Atrial Rate : 056 BPM P-R Int : 162 ms QRS Dur : 086 ms QT Int : 440 ms P-R-T Axes : 052 049 062 degrees QTc Int : 424 ms SINUS BRADYCARDIA OTHERWISE NORMAL ECG WHEN COMPARED WITH ECG OF 30-JUL-2017 10:59, NO SIGNIFICANT CHANGE WAS FOUND Confirmed by HOME CEE MD ([id number]) on 02/16/2019 12:05:15 PM Referred By: Confirmed By:HOME CEE MD
== END 2019-02-16 06:47 | disposition home or self-care (01) ==
LOC: JER 23:40
PROC: 3E0337Z Introduction of Electrolytic and Water Balance Substance into Peripheral Vein, Percutaneous Approach (ICD-10-PCS; principal; 2019-02-15)
PROC: 3E033NZ Introduction of Analgesics, Hypnotics, Sedatives into Peripheral Vein, Percutaneous Approach (ICD-10-PCS; 2019-02-15)
PROC: 3E033GC Introduction of Other Therapeutic Substance into Peripheral Vein, Percutaneous Approach (ICD-10-PCS; 2019-02-15)
DX: A08.4 Viral intestinal infection, unspecified (principal); B97.89 Other viral agents as the cause of diseases classified elsewhere; I10 Essential (primary) hypertension; Z87.19 Personal history of other diseases of the digestive system; K90.0 Celiac disease; Z85.41 Personal history of malignant neoplasm of cervix uteri
CPT/HCPCS: 36415; 74177-TC; 76705-TC; 80053; 81003; 82550; 83605; 83690; 84484; 85025; 85610; 87086; 87186; 93005; 93010; 99282-25; J0131; J7030

== ENCOUNTER 2019-02-18 14:00 | Inpatient (IN) | payer OTHER ==
[2019-02-18 14:06] VITALS: BMI 24.5
[2019-02-18] MEDS ORDERED: MEROPENEM 500 MG in DEXTROSE 5%-WATER 100 ML IVPB ONE (15:56)
[2019-02-18] MEDS ORDERED: METOCLOPRAMIDE HCL INJECTION 10 MG/2 ML VIAL IVPB ONE (16:20)
[2019-02-18] MEDS ORDERED: ACETAMINOPHEN 1000 MG/100 ML VIAL (NON FORMULARY) IVPB ONE (16:20)
[2019-02-18] MEDS ORDERED: SODIUM CHLORIDE 1,000 ML IV STA (16:20)
[2019-02-18 16:57] LABS: EOS % 2.3 % (0-4.5); HEMATOCRIT 28.3 % (32.4-45.2); HEMOGLOBIN 8.8 GM/dL (10.7-15.3); MCH 22.9 pg (25.7-33.7); MCHC 31.1 g/dl (32.0-36.0); MEAN CELL VOLUME 73.6 fl (80-96); MEAN PLT VOLUME 7.9 fl (7.5-11.1); MONO % 8.4 % (3.8-10.2); NEUT % 68.3 % (42.8-82.8); PLATELET COUNT 392 K/MM3 (134-434); RBC 3.84 M/mm3 (3.60-5.2); RDW 17.6 % (11.6-15.6); WHITE BLOOD COUNT 5.7 K/mm3 (4.0-10.0)
--- NOTE | 2019-02-18 16:57 | PDOC ---
History of Present Illness - General History Source: Patient Exam Limitations: No Limitations <Angelica Hairston - Last Filed: 02/18/19 18:23> <Karie Vigil - Last Filed: 02/19/19 07:20> - General Chief Complaint: Revisit, Lab Variance Stated Complaint: REVISIT Time Seen by Provider: 02/18/19 14:21 Past History - Past Medical History Anemia: No Asthma: Yes Cancer: Yes (CERVICAL CANCER X 2) Cardiac Disorders: No CVA: No COPD: No CHF: No DVT: Yes Dementia: No Diabetes: No GI Disorders: Yes (CELIAC DISEASE) Disorders: Yes HTN: Yes Hypercholesterolemia: No Liver Disease: No Seizures: No Thyroid Disease: No - Surgical History Abdominal Surgery: No Appendectomy: No Cardiac Surgery: No Cholecystectomy: No Lung Surgery: No Neurologic Surgery: No Orthopedic Surgery: No - Suicide/Smoking/Psychosocial Hx Smoking History: Unknown if ever smoked Have you smoked in the past 12 months: No If you are a former smoker, when did you quit?: 15 years ago Hx Alcohol Use: No Drug/Substance Use Hx: No Substance Use Type: None Hx Substance Use Treatment: No <Angelica Hairston - Last Filed: 02/18/19 18:23> <Karie Vigil - Last Filed: 02/19/19 07:20> - Past Medical History Allergies/Adverse Reactions: Allergies Allergy/AdvReac Type Severity Reaction Status Date / Time aspirin Allergy Severe Hives Verified 02/16/19 00:42 lidocaine Allergy Severe Hives Verified 02/16/19 00:42 Penicillins Allergy Severe Hives Verified 02/16/19 00:42 Home Medications: Ambulatory Orders Metoprolol Succinate [Toprol XL -] 25 mg PO DAILY 10/24/12 Amlodipine Besylate [Norvasc -] 10 mg PO DAILY 08/25/13 Losartan Potassium 50 mg PO DAILY 10/11/15 Topiramate 100 mg PO DAILY 10/11/15 Atorvastatin Ca [Lipitor] 40 mg PO HS #30 tablet 01/12/17 Clopidogrel Bisulfate [Clopidogrel] 75 mg PO DAILY 02/18/19 Folic Acid 1 mg PO DAILY 02/18/19 Furosemide 40 mg PO DAILY 02/18/19 Gabapentin 100 mg PO DAILY 02/18/19 Oxybutynin Chloride [Oxybutynin Chloride ER] 10 mg PO DAILY 02/18/19 Pramipexole Dihydrochloride [Mirapex -] 1.5 mg PO DAILY 02/18/19 *Physical Exam - Vital Signs Last Vital Signs Temp Pulse Resp BP Pulse Ox 98.2 F 69 20 144/61 97 02/18/19 14:03 02/18/19 14:03 02/18/19 14:03 02/18/19 14:03 02/18/19 14:03 - Physical Exam General Appearance: No: Apparent Distress Respiratory/Chest: positive: Lungs Clear, Normal Breath Sounds. negative: Respiratory Distress Cardiovascular: positive: Regular Rhythm, Regular Rate, S1, S2. negative: Murmur Gastrointestinal/Abdominal: positive: Normal Bowel Sounds, Soft. negative: Tender, Distended, Guarding, Rebound Musculoskeletal: negative: CVA Tenderness Neurologic: positive: Alert, Normal Mood/Affect <Angelica Hairston - Last Filed: 02/18/19 18:23> - Vital Signs Last Vital Signs Temp Pulse Resp BP Pulse Ox 98.2 F 69 20 144/61 97 02/18/19 14:03 02/18/19 14:03 02/18/19 14:03 02/18/19 14:03 02/18/19 14:03 <Karie Vigil - Last Filed: 02/19/19 07:20> ED Treatment Course - LABORATORY CBC & Chemistry Diagram: 02/18/19 16:50 02/18/19 16:50 <Angelica Hairston - Last Filed: 02/18/19 18:23> - LABORATORY CBC & Chemistry Diagram: 02/18/19 16:50 02/18/19 16:50 - ADDITIONAL ORDERS Additional order review: 02/18/19 16:50 RBC 3.84 MCV 73.6 L MCHC 31.1 L RDW 17.6 H MPV 7.9 Neutrophils % 68.3 Lymphocytes % 19.0 Monocytes % 8.4 Eosinophils % 2.3 Basophils % 2.0 - Medications Given in the ED: ED Medications Discontinued Medications Generic Name Dose Route Start Last Admin Trade Name Freq PRN Reason Stop Dose Admin Acetaminophen 1,000 mg 02/18/19 16:20 02/18/19 17:30 Ofirmev Injection - IVPB 02/18/19 16:21 1,000 mg ONCE ONE Administration Meropenem 500 mg/ Dextrose 100 mls @ 200 mls/hr 02/18/19 15:56 02/18/19 18:00 IVPB 02/18/19 16:25 200 mls/hr ONCE ONE Administration Sodium Chloride 1,000 mls @ 1,000 mls/hr 02/18/19 16:20 02/18/19 17:29 Normal Saline - IV 02/18/19 17:19 1,000 mls/hr ASDIR STA Administration Metoclopramide HCl 10 mg 02/18/19 16:20 02/18/19 17:31 Reglan Injection - IVPB 02/18/19 16:21 10 mg ONCE ONE Administration <Karie Vigil - Last Filed: 02/19/19 07:20> Medical Decision Making - Medical Decision Making 58 y/o F hx of celiac disease, migraines, cervical cancer (dx age 35) s/p PRATEEK and BSO, HTN, asthma, anemia was recalled to ED due to positive urine culture. Patient was seen in ED 3 days ago for watery diarrhea (which she had for 3 days ) along with lower abdominal and back pain. Patient states the diarrhea resolved while she was in the ED. Patient mentions she had dysuria a few weeks ago, but that resolved. Mentions having increased urinary frequency and strong odor to urine x 1 week. Denies fever, sob, cp, abd pain, n/v, hematuria. Urine culture from 02/15 shows E.coli ESBL, resistant to PO antibiotics Plan: Labs, Meropenem, admit Patient also c/o migraine headache, typical of her usual migraine Plan: IVF, Tylenol, Reglan 02/18/19 16:54 <Angelica Hairston - Last Filed: 02/18/19 18:23> *DC/Admit/Observation/Transfer - Discharge Dispostion Decision to Admit order: Yes <Angelica Hairston - Last Filed: 02/18/19 18:23> - Attestations Physician Attestion: I reviewed the case with the mid-level practitioner and agree with the mid- level practitioner's assessment, diagnosis and disposition. <Karie Vigil - Last Filed: 02/19/19 07:20> Diagnosis at time of Disposition: UTI (urinary tract infection) Qualifiers: Urinary tract infection type: site unspecified Hematuria presence: without hematuria Qualified Code(s): N39.0 - Urinary tract infection, site not specified - Discharge Dispostion Condition at time of disposition: Stable
[2019-02-18] MEDS ORDERED: METOCLOPRAMIDE HCL INJECTION 10 MG/2 ML VIAL ONE (17:05)
[2019-02-18] MEDS ORDERED: ACETAMINOPHEN INJECTION 100 ML IVPB ONE (17:06)
[2019-02-18 17:37] LABS: ALBUMIN 4.1 g/dl (3.4-5.0); ALK PHOS 143 U/L (45-117); ANION GAP 7 MMOL/L (8-16); BILIRUBIN,TOTAL 0.2 mg/dL (0.2-1); BLOOD UREA NITROGEN 15 mg/dL (7-18); CALCIUM 8.8 mg/dL (8.5-10.1); CHLORIDE 112 mmol/L (98-107); CO2 25 mmol/L (21-32); CREATININE 0.7 mg/dL (0.55-1.3); GLUCOSE,RANDOM 85 mg/dL (74-106); SGPT/ALT 18 U/L (13-61); SODIUM 144 mmol/L (136-145); TOT PROT 7.3 g/dl (6.4-8.2)
[2019-02-18 17:38] LABS: POTASSIUM 4.5 mmol/L (3.5-5.1); SGOT/AST 42 U/L (15-37)
--- NOTE | 2019-02-18 18:15 | HP ---
CHIEF COMPLAINT: urinary tract infection HISTORY OF PRESENT ILLNESS: 58 year old female with a hx of celiac disease, migraines, cervical CA s/p PRATEEK and BSO, hypertension, asthma, anemia returns to the hospital after receiving positive urine culture for E coli ESBL resistant to PO antibiotics. She initially presented 2 days ago to the ED with diarrhea and discharged home without antibiotics. Patient reports that the diarrhea has resolved but has had some urinary frequency for 1 week and mild dysuria. Denies chest pain, shortness of breath, nausea, vomiting, diarrhea, fevers, or chills. Reports mild R sided lower back pain that has been present for many years. ER course was notable for: (1) hgb 8.8 (2) afebrile (3) CT abd/pelvis on 02/16 was read as normal without any pathology Recent Travel: denies PAST MEDICAL HISTORY: as stated above PAST SURGICAL HISTORY: total abdominal hysterectomy and bilateral salpingo- oophorectomy Social History: Smoking: former smoker, quit 15 years ago, smoked 2 ppd for 30 years Alcohol: never Drugs: never Family History: cousin with breast CA, mother healthy, didn't know father, 2 healthy children and 4 healthy grandchildren Allergies aspirin Allergy (Severe, Verified 02/16/19 00:42) Hives lidocaine Allergy (Severe, Verified 02/16/19 00:42) Hives PT. UNSURE OF WHEN, AND WHY, IT WAS LONG TIME AGO Penicillins Allergy (Severe, Verified 02/16/19 00:42) Hives HOME MEDICATIONS: Home Medications Medication Instructions Recorded Metoprolol Succinate [Toprol XL -] 25 mg PO DAILY 10/24/12 Omeprazole [Prilosec (RX)] 40 mg PO DAILY 10/24/12 Amlodipine Besylate [Norvasc -] 10 mg PO DAILY 08/25/13 Losartan Potassium 50 mg PO DAILY 10/11/15 Pramipexole Dihydrochloride 0.75 mg PO DAILY 10/11/15 [Mirapex -] Pramipexole Dihydrochloride 2 mg PO HS 10/11/15 [Mirapex -] Topiramate 100 mg PO BID 10/11/15 traZODone HCL [Desyrel -] 50 mg PO HS 10/11/15 Atorvastatin Ca [Lipitor] 40 mg PO HS #30 tablet 01/12/17 Acetaminophen [Tylenol -] 2 tab PO Q6H #30 tablet 01/02/18 Oxycodone HCl/Acetaminophen 1 tab PO Q6H 01/02/18 [Percocet 5-325 mg Tablet] Acetaminophen/Caffeine/Butalb 1 tab PO Q6H PRN #14 tablet MDD 4 12/01/18 [Fioricet -] Spirometer/Drug Delivery Adapt 1 each MC Q1H #1 each 02/08/19 [Mistassist Kit] Ondansetron [Zofran Odt -] 4 mg SL TID #10 od.tablet 02/16/19 traMADol HCL [Ultram -] 50 mg PO BID #10 tablet MDD 2 02/16/19 REVIEW OF SYSTEMS CONSTITUTIONAL: Absent: fever, chills, diaphoresis, generalized weakness, malaise, loss of appetite, weight change HEENT: Absent: rhinorrhea, nasal congestion, throat pain, throat swelling, difficulty swallowing, mouth swelling, ear pain, eye pain, visual changes CARDIOVASCULAR: Absent: chest pain, syncope, palpitations, irregular heart rate, lightheadedness , peripheral edema RESPIRATORY: Absent: cough, shortness of breath, dyspnea with exertion, orthopnea, wheezing, stridor, hemoptysis GASTROINTESTINAL: Absent: abdominal pain, abdominal distension, nausea, vomiting, diarrhea, constipation, melena, hematochezia GENITOURINARY: frequency, urgency Absent: dysuria,hesitancy, hematuria, flank pain, genital pain MUSCULOSKELETAL: Absent: myalgia, arthralgia, joint swelling, back pain, neck pain SKIN: Absent: rash, itching, pallor HEMATOLOGIC/IMMUNOLOGIC: Absent: easy bleeding, easy bruising, lymphadenopathy, frequent infections ENDOCRINE: Absent: unexplained weight gain, unexplained weight loss, heat intolerance, cold intolerance NEUROLOGIC: Absent: headache, focal weakness or paresthesias, dizziness, unsteady gait, seizure, mental status changes, bladder or bowel incontinence PSYCHIATRIC: Absent: anxiety, depression, suicidal or homicidal ideation, hallucinations. PHYSICAL EXAMINATION Vital Signs - 24 hr 02/18/19 14:03 Temperature 98.2 F Pulse Rate 69 Respiratory 20 Rate Blood Pressure 144/61 O2 Sat by Pulse 97 Oximetry (%) GENERAL: A&Ox3, no acute distress EYES: PERRLA, EOMI ENT: Moist mucus membranes NECK: No JVD LUNGS: CTA, no wheezes HEART: RRR, no murmurs ABDOMEN: Soft, nontender, BS present, well healed laparoscopy scars noted on abdomen MUSCULOSKELETAL: No CVA Tenderness EXTREMITIES: 2+ pulses, no edema. NEUROLOGICAL: Cranial nerves II-XII intact. Laboratory Results - last 24 hr 02/18/19 02/18/19 16:50 16:50 WBC 5.7 RBC 3.84 Hgb 8.8 L Hct 28.3 L MCV 73.6 L MCH 22.9 L MCHC 31.1 L RDW 17.6 H Plt Count 392 MPV 7.9 Absolute Neuts (auto) 3.9 Neutrophils % 68.3 Lymphocytes % 19.0 Monocytes % 8.4 Eosinophils % 2.3 Basophils % 2.0 Nucleated RBC % 0 Sodium 144 Potassium 4.5 Chloride 112 H Carbon Dioxide 25 Anion Gap 7 L BUN 15 Creatinine 0.7 Creat Clearance w eGFR 85.95 Random Glucose 85 Calcium 8.8 Total Bilirubin 0.2 AST 42 H ALT 18 Alkaline Phosphatase 143 H Total Protein 7.3 Albumin 4.1 ASSESSMENT/PLAN: 58 year old female with a hx of celiac disease, migraines, cervical CA s/p PRATEEK and BSO, hypertension, asthma, anemia returns to the hospital after receiving positive urine culture for E coli ESBL resistant to PO antibiotics. 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: patient is not septic with a normal white count and afebrile, but comes in for IV antibiotic therapy -started meropenem -UA was positive on 02/16, will repeat now and with culture -on 02/16, had both CT abdomen/pelvis and US abdomen which were both normal without any pathology -ID consultation appreciated #Hypertension: BP 144/61, on medications -continue losartan, metoprolol, lasix, and amlodipine home doses #CAD: chronic -continue home plavix, atorvastatin #Anemia: likely iron deficiency anemia based on prior workups #Migraines: continue topiramate #FEN -no standing fluids, encourage PO intake -lytes within normal limits -celiac diet, gluten restricted #Prophylaxis -lovenox prophylaxis #Disposition -admit med surg, anticipate DC after IV antibiotics are discontinued
[2019-02-18] MEDS ORDERED: MEROPENEM 1 GM in DEXTROSE 5%-WATER 100 ML IVPB SCH (19:00)
[2019-02-18] MEDS: LACTATED RINGERS SOLUTION 1,000 ML IV SCH (19:15)
[2019-02-18] MEDS ORDERED: ATORVASTATIN CA 10 MG TABLET (FP) ONE (22:20)
[2019-02-18] MEDS: ATORVASTATIN CA 40 MG TABLET (FP) PO SCH (22:27)
--- NOTE | 2019-02-18 22:59 | PN ---
Teaching Attending Note Name of Resident: Jhonny Quinones ATTENDING PHYSICIAN STATEMENT I saw and evaluated the patient. I reviewed the resident's note and discussed the case with the resident. I agree with the resident's findings and plan as documented. SUBJECTIVE: patient was called from home for ESBL UTI, she was noted to have fever and chills, she is also complaining of headache OBJECTIVE: s1 and s2 lungs CTA good air entry no edema ASSESSMENT AND PLAN: admit to med-surg isolation ID consultation Meropenem stat follow ID c/w home medication migraine - fiorcet prn Problem List - Problems (1) UTI (urinary tract infection) Code(s): N39.0 - URINARY TRACT INFECTION, SITE NOT SPECIFIED Qualifiers: Urinary tract infection type: site unspecified Hematuria presence: without hematuria Qualified Code(s): N39.0 - Urinary tract infection, site not specified (2) Anemia Code(s): D64.9 - ANEMIA, UNSPECIFIED Qualifiers: Anemia type: other cause Other causes of anemia: other cause, not classified Qualified Code(s): D64.89 - Other specified anemias (3) Headache Code(s): R51 - HEADACHE
[2019-02-18 23:09] LABS: EPI CELLS 1.1 /HPF (0-5/HPF); URINE APPEARANCE CLOUDY; URINE BILIRUBIN NEGATIVE (NEGATIVE); URINE CASTS 3 /lpf (0-8); URINE COLOR YELLOW; URINE GLUCOSE (UA) NEGATIVE (NEGATIVE); URINE KETONE NEGATIVE (NEGATIVE); URINE LEUK ESTERASE 3+ (NEGATIVE); URINE NITRITE NEGATIVE (NEGATIVE); URINE PROTEIN NEGATIVE (NEGATIVE); URINE RBC 2 /hpf (0-4); URINE UROBILINOGEN 0.2 mg/dL (0.2-1.0); URINE WBC 169 /hpf (0-5)
[2019-02-19] MEDS ORDERED: MEROPENEM 1 GM VIAL (RESTRICTED TO ID) IVPB ONE ×2 (02:47→09:20)
[2019-02-19] MEDS: MEROPENEM 1 GM in DEXTROSE 5%-WATER 100 ML IVPB SCH ×2 (03:00→09:43)
[2019-02-19 07:46] LABS: HEMATOCRIT 25.8 % (32.4-45.2); HEMOGLOBIN 7.9 GM/dL (10.7-15.3); MCH 22.6 pg (25.7-33.7); MCHC 30.5 g/dl (32.0-36.0); MEAN CELL VOLUME 74.1 fl (80-96); PLATELET COUNT 326 K/MM3 (134-434); RBC 3.49 M/mm3 (3.60-5.2); WHITE BLOOD COUNT 4.3 K/mm3 (4.0-10.0)
[2019-02-19 08:51] LABS: ANION GAP 6 MMOL/L (8-16); BLOOD UREA NITROGEN 12 mg/dL (7-18); CALCIUM 8.3 mg/dL (8.5-10.1); CHLORIDE 113 mmol/L (98-107); CO2 25 mmol/L (21-32); CREATININE 0.6 mg/dL (0.55-1.3); GLUCOSE,RANDOM 103 mg/dL (74-106); MAGNESIUM 2.2 mg/dL (1.8-2.4); PHOSPHOROUS 3.5 mg/dL (2.5-4.9); SODIUM 144 mmol/L (136-145)
[2019-02-19] MEDS: LOSARTAN POTASSIUM 50 MG TABLET (FP) PO SCH (09:43)
[2019-02-19] MEDS: PRAMIPEXOLE DIHYDROCHLORIDE 1.5 MG TABLET PO SCH (09:43)
[2019-02-19] MEDS: CLOPIDOGREL BISULFATE 75 MG TABLET (FP) PO SCH (09:43)
[2019-02-19] MEDS: TOPIRAMATE 100 MG TABLET PO SCH (09:43)
[2019-02-19] MEDS: ENOXAPARIN NA (PORCINE) 40 MG/0.4 ML DISP.SYRIN SQ SCH (09:43)
[2019-02-19] MEDS: FOLIC ACID 1 MG TABLET (FP) PO SCH (09:43)
[2019-02-19] MEDS: amLODIPine BESYLATE 10 MG TABLET (FP) PO SCH (09:43)
[2019-02-19] MEDS: GABAPENTIN 100 MG CAPSULE (FP) PO SCH (09:43)
[2019-02-19] MEDS: FUROSEMIDE 40 MG TABLET (FP) PO SCH (09:43)
[2019-02-19] MEDS: metoPROLOL SUCCINATE 25 MG TAB.SR.24H (FP) PO SCH (09:44)
[2019-02-19] MEDS: SOLIFENACIN SUCCINATE 5 MG TAB (FP) PO SCH (09:44)
--- NOTE | 2019-02-19 09:55 | PN ---
Progress Note (short form) - Note Progress Note: Current Medications Generic Name Dose Route Start Last Admin Trade Name Letitia PRN Reason Stop Dose Admin Amlodipine Besylate 10 mg 02/19/19 10:00 02/19/19 09:43 Norvasc - PO 10 mg DAILY ROSALVA Administration Atorvastatin Calcium 40 mg 02/18/19 22:00 02/18/19 22:27 Lipitor - PO 40 mg HS ROSALVA Administration Clopidogrel Bisulfate 75 mg 02/19/19 10:00 02/19/19 09:43 Plavix - PO 75 mg DAILY ROSALVA Administration Enoxaparin Sodium 40 mg 02/19/19 10:00 02/19/19 09:43 Lovenox - SQ 40 mg DAILY ROSALVA Administration Folic Acid 1 mg 02/19/19 10:00 02/19/19 09:43 Folic Acid - PO 1 mg DAILY ROSALVA Administration Furosemide 40 mg 02/19/19 10:00 02/19/19 09:43 Lasix - PO 40 mg DAILY ROSALVA Administration Gabapentin 100 mg 02/19/19 10:00 02/19/19 09:43 Neurontin - PO 100 mg DAILY ROSALVA Administration Lactated Ringer's 1,000 mls @ 83 mls/hr 02/18/19 18:15 02/18/19 19:15 Lactated Ringers Solution IV 02/20/19 06:18 83 mls/hr ASDIR ROSALVA Administration Meropenem 1 gm/ Dextrose 100 mls @ 200 mls/hr 02/18/19 19:00 IVPB Q8H-IV ROSALVA Meropenem 1 gm/ Dextrose 100 mls @ 200 mls/hr 02/19/19 02:00 02/19/19 09:43 IVPB 02/19/19 10:29 200 mls/hr Q8H ROSALVA Administration Losartan Potassium 50 mg 02/19/19 10:00 02/19/19 09:43 Cozaar - PO 50 mg DAILY ROSALVA Administration Metoprolol Succinate 25 mg 02/19/19 10:00 02/19/19 09:44 Toprol Xl - PO 25 mg DAILY ROSALVA Administration Pramipexole Dihydrochloride 1.5 mg 02/19/19 10:00 02/19/19 09:43 Mirapex - PO 1.5 mg DAILY ROSALVA Administration Solifenacin 5 mg 02/19/19 10:00 02/19/19 09:44 Vesicare - PO 5 mg DAILY ROSALVA Administration Topiramate 100 mg 02/19/19 10:00 02/19/19 09:43 Topamax - PO 100 mg DAILY ROSALVA Administration Last Vital Signs Temp Pulse Resp BP Pulse Ox 98.2 F 69 20 144/61 97 02/18/19 14:03 02/18/19 14:03 02/18/19 14:03 02/18/19 14:03 02/18/19 14:03 multiple attempts made to evaluate patient but in bathroom every visit CBCD WBC 4.3 K/mm3 (4.0-10.0) 02/19/19 06:52 RBC 3.49 M/mm3 (3.60-5.2) L 02/19/19 06:52 Hgb 7.9 GM/dL (10.7-15.3) L 02/19/19 06:52 Hct 25.8 % (32.4-45.2) L 02/19/19 06:52 MCV 74.1 fl (80-96) L 02/19/19 06:52 MCHC 30.5 g/dl (32.0-36.0) L 02/19/19 06:52 RDW 18.0 % (11.6-15.6) H 02/19/19 06:52 Plt Count 326 K/MM3 (134-434) 02/19/19 06:52 MPV 8.0 fl (7.5-11.1) 02/19/19 06:52 CMP Sodium 144 mmol/L (136-145) 02/19/19 06:52 Potassium 4.0 mmol/L (3.5-5.1) 02/19/19 06:52 Chloride 113 mmol/L (98-107) H 02/19/19 06:52 Carbon Dioxide 25 mmol/L (21-32) 02/19/19 06:52 Anion Gap 6 MMOL/L (8-16) L 02/19/19 06:52 BUN 12 mg/dL (7-18) 02/19/19 06:52 Creatinine 0.6 mg/dL (0.55-1.3) 02/19/19 06:52 Creat Clearance w eGFR 102.68 (>60) 02/19/19 06:52 Calcium 8.3 mg/dL (8.5-10.1) L 02/19/19 06:52 Total Bilirubin 0.2 mg/dL (0.2-1) 02/18/19 16:50 AST 42 U/L (15-37) H 02/18/19 16:50 ALT 18 U/L (13-61) 02/18/19 16:50 Alkaline Phosphatase 143 U/L (45-117) H 02/18/19 16:50 Total Protein 7.3 g/dl (6.4-8.2) 02/18/19 16:50 Albumin 4.1 g/dl (3.4-5.0) 02/18/19 16:50 ASSESSMENT/PLAN: 58 year old female with a hx of celiac disease, migraines, cervical CA s/p PRATEEK and BSO, hypertension, asthma, anemia returns to the hospital after receiving positive urine culture for E coli ESBL resistant to PO antibiotics. 1. Ecoli ESBL UTI- remains symptomatic per chart. Cx from 02/16 is + and started on meropenem. repeat cx sent. ID consulted. will likely require PICC for longterm abx. f/u repeat cx 2. Diarrhea- will check for cdiff and cx 3. HTN- cont home medications. will titrate as needed to optimize BP 4. mircocytic anemia- recent iron studies normal. will need to have electrophoresis to evaluate for alternative causes. no indication for transfusion. trend CBC 5. CAD- on plavix/statin 6. migraines- on ppx with topiramate 7. DVT ppx- lovenox Visit type - Emergency Visit Emergency Visit: Yes ED Registration Date: 02/18/19 Care time: The patient presented to the Emergency Department on the above date and was hospitalized for further evaluation of their emergent condition. - New Patient This patient is new to me today: Yes Date on this admission: 02/19/19 - Critical Care Critical Care patient: No - Discharge Referral Referred to [facility] Med P.C.: No
[2019-02-19] MEDS: LACTOBACILLUS ACIDOPHILUS 1 TABLET PO SCH (14:38)
--- NOTE | 2019-02-19 16:15 | PN ---
Progress Note (short form) - Note Progress Note: ID consult dictated symptomatic UTI diarrhea contact isolation ertapenem stool studies will f/u
--- NOTE | 2019-02-19 16:39 | CONS ---
DATE OF CONSULTATION: DATE OF DICTATION: 02/19/2019 INFECTIOUS DISEASE CONSULTATION REQUESTED BY: Hospitalist service HISTORY OF PRESENT ILLNESS: This is a 58-year-old woman. She is a patient of Dr. Salinas, was seen in the ER on the . At that time she had complaints of vomiting and diarrhea which apparently improved in the ER and she was discharged home. She had a CAT scan on the that was unremarkable and a normal abdominal sonogram. She reports her diarrhea subsided. After discharge home she received a call from the emergency room stating that she had a positive urine culture. She noted that she was having some lower abdominal pain and dysuria and increasing urinary frequency. So given this, she was advised to return to the ER to be treated. She reports having received antibiotic since last night with improvement in her urinary symptoms. She does note she has had 3 episodes of diarrhea today, but she does have a history of celiac disease and she is not sure if she ate something that disagreed with her stomach. She denies any fevers or chills, otherwise feels well. PAST MEDICAL HISTORY: Notable for asthma, cervical cancer, DVT. She has a history of celiac disease, hypertension. ALLERGIES: ASPIRIN, PENICILLIN, and LIDOCAINE. SURGICAL HISTORY: Notable for total abdominal hysterectomy and bilateral salpingo-oophorectomy. FAMILY HISTORY: Notable for a cousin with breast cancer. SOCIAL HISTORY: She is . She lives in the same building as her mother and looks after her mother. She is originally from [place] but is afraid to fly, so she has never returned back. There is no history of any travel. She is a former smoker. She was smoking 2 packs per day and she quit 15 years ago. No history of alcohol or substance use. MEDICATIONS AT HOME: Include metoprolol, Prilosec, Norvasc, losartan, Mirapex, Topamax, Desyrel, atorvastatin, Percocet, Fioricet, Zofran and Ultram. REVIEW OF SYSTEMS: There are no fevers or chills. Since coming to the emergency room she reports 3 episodes of nonbloody diarrhea and she notes frequency and urgency at home that has improved. She has had no vomiting and there is no cough or fever. PHYSICAL EXAMINATION: Vital Signs: Her temperature is 98.2. Pulse is 69, blood pressure 144/61. Respiratory rate is 20. HEENT: She is normocephalic. Her eyes are anicteric. Neck: Supple. Lungs: Clear to auscultation. Heart: Regular rate and rhythm. Abdomen: Soft. She has good bowel sounds. She has no CVA tenderness. She currently has no suprapubic pain. Extremities: Without edema. Skin: She has no rash. LABORATORY: White count is 4.3, hemoglobin 7.9. Platelets are 326. BUN is 12 and creatinine 0.6 with AST of 46, ALT of 18, alkaline phosphatase of 143. Urinalysis has 3+ leukocyte esterase with 169 white cells. Urine culture from the 25th notable for an E. coli ESBL digital producer greater than 100,000 resistant to Bactrim, nitrofurantoin and levofloxacin. In the ER the patient was treated with meropenem and is currently on meropenem. In summary this is a 58-year-old woman with by ER history what appears to be symptomatic UTI. She is having diarrhea. It is hard with the nature of her celiac disease to know if this is infectious or not. Would suggest obtaining stool studies including stool white cells and Clostridium difficile as well as stool culture. Would switch her to ertapenem which is once a day for treatment of her UTI at this time. History of migraine headaches. Further recommendations to follow. JERROD SIDDIQUI M.D. [id number]
[2019-02-19] MEDS ORDERED: ERTAPENEM SODIUM 1 GM VIAL ONE (17:24)
[2019-02-19] MEDS: LACTATED RINGERS SOLUTION 1,000 ML IV SCH (17:43)
[2019-02-19] MEDS: ERTAPENEM SODIUM 1 GM in SODIUM CHLORIDE 50 ML IVPB SCH (17:43)
[2019-02-19] MEDS ORDERED: ACETAMINOPHEN 325 MG TABLET (FP) PO ONE (21:01)
[2019-02-19] MEDS ORDERED: ACETAMINOPHEN 325 MG TABLET (FP) ONE (21:46)
[2019-02-19] MEDS: ATORVASTATIN CA 40 MG TABLET (FP) PO SCH (21:56)
[2019-02-19] MEDS ORDERED: METOCLOPRAMIDE HCL 10 MG TABLET (FP) PO ONE ×2 (23:07→23:14)
[2019-02-20] MEDS ORDERED: ACETAMINOPHEN 1000 MG/100 ML VIAL (NON FORMULARY) IVPB ONE (03:22)
[2019-02-20] MEDS ORDERED: diphenhydrAMINE HCL 25 MG CAPSULE (FP) PO ONE ×2 (03:23→03:30)
[2019-02-20] MEDS ORDERED: ACETAMINOPHEN INJECTION 100 ML IVPB ONE (03:30)
[2019-02-20 05:55] LABS: HEMATOCRIT 26.7 % (32.4-45.2); HEMOGLOBIN 8.4 GM/dL (10.7-15.3); MCH 23.3 pg (25.7-33.7); MCHC 31.6 g/dl (32.0-36.0); MEAN CELL VOLUME 73.7 fl (80-96); MEAN PLT VOLUME 7.9 fl (7.5-11.1); PLATELET COUNT 361 K/MM3 (134-434); RBC 3.62 M/mm3 (3.60-5.2); RDW 17.6 % (11.6-15.6); WHITE BLOOD COUNT 5.1 K/mm3 (4.0-10.0)
[2019-02-20] MEDS ORDERED: ERTAPENEM SODIUM 1 GM VIAL ONE (10:33)
[2019-02-20] MEDS: LOSARTAN POTASSIUM 50 MG TABLET (FP) PO SCH (10:56)
[2019-02-20] MEDS: FOLIC ACID 1 MG TABLET (FP) PO SCH (10:56)
[2019-02-20] MEDS: FUROSEMIDE 40 MG TABLET (FP) PO SCH (10:56)
[2019-02-20] MEDS: LACTOBACILLUS ACIDOPHILUS 1 TABLET PO SCH (10:56)
[2019-02-20] MEDS: ERTAPENEM SODIUM 1 GM in SODIUM CHLORIDE 50 ML IVPB SCH (10:56)
[2019-02-20] MEDS: amLODIPine BESYLATE 10 MG TABLET (FP) PO SCH (10:57)
[2019-02-20] MEDS: metoPROLOL SUCCINATE 25 MG TAB.SR.24H (FP) PO SCH (10:57)
[2019-02-20] MEDS: SOLIFENACIN SUCCINATE 5 MG TAB (FP) PO SCH (10:57)
[2019-02-20] MEDS: TOPIRAMATE 100 MG TABLET PO SCH (10:57)
[2019-02-20] MEDS: PRAMIPEXOLE DIHYDROCHLORIDE 1.5 MG TABLET PO SCH (10:57)
[2019-02-20] MEDS: CLOPIDOGREL BISULFATE 75 MG TABLET (FP) PO SCH (10:57)
[2019-02-20] MEDS: GABAPENTIN 100 MG CAPSULE (FP) PO SCH (10:57)
[2019-02-20] MEDS: ENOXAPARIN NA (PORCINE) 40 MG/0.4 ML DISP.SYRIN SQ SCH (10:57)
[2019-02-20 11:02] VITALS: TEMP 98
--- NOTE | 2019-02-20 12:21 | PN ---
Teaching Attending Note Name of Resident: Benson Pollock ATTENDING PHYSICIAN STATEMENT I saw and evaluated the patient. I reviewed the resident's note and discussed the case with the resident. I agree with the resident's findings and plan as documented. SUBJECTIVE:presented yesterday with dysuria which she states has now resolved. diarrhea has improved only 2 episodes since yesterday. denies CP, SOB, fever, chills, abdominal pain, urinary frequency N/V OBJECTIVE: Last Vital Signs Temp Pulse Resp BP Pulse Ox 98 F 54 L 18 152/65 99 02/20/19 10:00 02/20/19 10:00 02/20/19 10:00 02/20/19 10:00 02/20/19 10:00 General NAD CV S1 S2 RRR no murmur/rub/gallop Lungs CTA B/L no wheeizng/rales/rhonchi ABodomen soft NT/ND ASSESSMENT AND PLAN: 58 year old female with a hx of celiac disease, migraines, cervical CA s/p PRATEEK and BSO, hypertension, asthma, anemia returns to the hospital after receiving positive urine culture for E coli ESBL resistant to PO antibiotics. 1. Ecoli ESBL UTI- asymptomatic. on ERtapenem day 2. awaiting repeat cx done on this admission. will then d/w ID about duration. ID on board 2. Diarrhea-improved. f/u stool and cdiff 3. HTN- cont home medications. will titrate as needed to optimize BP 4. mircocytic anemia- recent iron studies normal. will need to have electrophoresis to evaluate for alternative causes. no indication for transfusion. trend CBC 5. CAD- on plavix/statin 6. migraines- on ppx with topiramate 7. DVT ppx- lovenox
--- NOTE | 2019-02-20 14:17 | DS ---
Physical Exam: SUBJECTIVE: Patient seen and examined at bedside this morning. She denies subjective fevers, chills, shortness of breath, chest pain, palpitations, abdominal pain, dysuria, hematuria. OBJECTIVE: Vital Signs Period Temp Pulse Resp BP Sys/Miller Pulse Ox Last 24 Hr 98 F 54 18 152/65 99 PHYSICAL EXAM GENERAL: The patient is awake, alert, and fully oriented, in no acute distress. HEAD: Normocephalic, atraumatic EYES: PERRL, extraocular movements intact, sclera anicteric, conjunctiva clear. ENT: Oropharynx clear without exudates, moist mucous membranes. NECK: Trachea midline, full range of motion, supple. LUNGS: Breath sounds equal, clear to auscultation bilaterally, no wheezes, no crackles, no accessory muscle use. HEART: Regular rate and rhythm, S1, S2 without murmur, rub or gallop. ABDOMEN: Soft, nontender to light and deep palpation, nondistended. Normoactive bowel sounds, no guarding, no rebound, no hepatosplenomegaly, no masses. EXTREMITIES: 2+ radial, dorsalis pedis pulses bilaterally, warm, well-perfused. No lower extremity edema bilaterally. NEUROLOGICAL: Cranial nerves II through XII grossly intact. Normal speech. PSYCH: Normal mood, normal affect. SKIN: Warm, dry, normal turgor, no rashes or lesions noted. LABS Laboratory Results - last 24 hr 02/20/19 05:20 WBC 5.1 RBC 3.62 Hgb 8.4 L Hct 26.7 L MCV 73.7 L MCH 23.3 L MCHC 31.6 L RDW 17.6 H Plt Count 361 MPV 7.9 HOSPITAL COURSE: Date of Admission:02/18/19 Date of Discharge: 02/20/19 Patient is a 58 year old female with history of hypertension, asthma, celiac disease, migraines, cervical cancer s/p total abdominal hysterectomy, anemia, was called in to hospital after receiving urine culture positive for ESBL E. coli. Patient was started on Meropenem. She was evaluated by infectious disease physician, and started on Ertapenem. Home medications were reinstated. Patient endorsed diarrhea during hospitalization; stool negative for C. difficile. Repeat urine culture returned negative for growth. ID recommendations discussed likely transient infection. Patient was discharged home with Bacid. To follow up with primary care physician. Minutes to complete discharge: 35 Discharge Summary Reason For Visit: UTI Current Active Problems UTI (urinary tract infection) (Acute) Condition: Stable - Instructions Diet, Activity, Other Instructions: You were admitted to the hospital due to a urinary tract infection. You were found to have resistant strain of E. coli in your urine, and were treated with IV antibiotics. Your repeat urine cultures have come back negative for infection. You are being discharged home. Continue taking your home medications as directed. Take Probiotic Bacid 1 tablet daily for the next 30 days. Follow up with your primary care physician within two -three days after discharge. A referral to [facility] has been provided. Return to the nearest Emergency Department if you experience any worsening symptoms, subjective fevers, chills, shortness of breath, chest pain, palpitations, abdominal pain, nausea, vomiting, pain or bleeding with urination , weakness, lightheadedness, dizziness, falls, loss of consciousness, trauma. Referrals: [facility] [place] Internal [facility] [Provider Group] Disposition: HOME - Home Medications Comprehensive Discharge Medication List: Ambulatory Orders Metoprolol Succinate [Toprol XL -] 25 mg PO DAILY 10/24/12 Amlodipine Besylate [Norvasc -] 10 mg PO DAILY 08/25/13 Losartan Potassium 50 mg PO DAILY 10/11/15 Topiramate 100 mg PO DAILY 10/11/15 Atorvastatin Ca [Lipitor] 40 mg PO HS #30 tablet 01/12/17 Clopidogrel Bisulfate [Clopidogrel] 75 mg PO DAILY 02/18/19 Folic Acid 1 mg PO DAILY 02/18/19 Furosemide 40 mg PO DAILY 02/18/19 Gabapentin 100 mg PO DAILY 02/18/19 Oxybutynin Chloride [Oxybutynin Chloride ER] 10 mg PO DAILY 02/18/19 Pramipexole Dihydrochloride [Mirapex -] 1.5 mg PO DAILY 02/18/19 Lactobacillus Acidophilus [Bacid -] 1 tab PO DAILY 30 Days #30 tab 02/20/19 This patient is new to me today: Yes Date on this admission: 02/20/19 Emergency Visit: Yes ED Registration Date: 02/18/19 Care time: The patient presented to the Emergency Department on the above date and was hospitalized for further evaluation of their emergent condition. Critical Care patient: No - Discharge Referral Referred to [facility] Med [facility].C.: No
[2019-02-20 15:57] VITALS: BP 142/79; PULSE 75
== END 2019-02-20 17:08 | disposition home or self-care (01) | DRG 463 ==
LOC: JER 14:00 → JERBED 18:23 → J8W 02-20 15:27
PROVIDERS: ADMIT Internal Medicine; ATTEND Internal Medicine
DX: N39.0 Urinary tract infection, site not specified (principal); I10 Essential (primary) hypertension; K90.0 Celiac disease; J45.909 Unspecified asthma, uncomplicated; G43.909 Migraine, unspecified, not intractable, without status migrainosus; B96.20 Unspecified Escherichia coli [E. coli] as the cause of diseases classified elsewhere; I25.10 Atherosclerotic heart disease of native coronary artery without angina pectoris; D64.9 Anemia, unspecified; Z85.41 Personal history of malignant neoplasm of cervix uteri; Z87.891 Personal history of nicotine dependence; R19.7 Diarrhea, unspecified
CPT/HCPCS: 36415; 80048; 80053; 81003; 83735; 84100; 85025; 85027; 87045; 87046; 87086; 87324; 87449; 97116-GP; 99282-25; 99283-25; J0131; J7030

== ENCOUNTER 2019-05-30 16:16 | Emergency (ER) | payer OTHER ==
--- NOTE | 2019-05-30 16:31 | PDOC ---
Rapid Medical Evaluation Chief Complaint: Pain Time Seen by Provider: 05/30/19 16:25 Medical Evaluation: Allergies Allergy/AdvReac Type Severity Reaction Status Date / Time aspirin Allergy Severe Hives Verified 02/16/19 00:42 lidocaine Allergy Severe Hives Verified 02/16/19 00:42 Penicillins Allergy Severe Hives Verified 02/16/19 00:42 05/30/19 16:25 I have performed a brief in-person evaluation of this patient. The patient presents with a chief complaint of: abdomenal pain with watery diarhea x 3 days x5 today. Pertinent physical exam findings: pale/ ashen / weak, abd soft with tenderness I have ordered the following: CBC/ CMP/ UA/ EKG The patient will proceed to the ED for further evaluation 05/30/19 16:29 Discharge Disposition - Diagnosis Abdominal pain Qualifiers: Abdominal location: epigastric Qualified Code(s): R10.13 - Epigastric pain - Referrals - Patient Instructions - Post Discharge Activity
[2019-05-30 16:34] VITALS: BP 128/55; PULSE 64; TEMP 97.8; BMI 23.6
[2019-05-30 19:18] LABS: BASO % 0.6 % (0-2.0); EOS % 0.2 % (0-4.5); HEMATOCRIT 28.4 % (32.4-45.2); HEMOGLOBIN 8.8 GM/dL (10.7-15.3); LYMPH % 10.1 % (8-40); MCH 21.4 pg (25.7-33.7); MCHC 30.9 g/dl (32.0-36.0); MEAN CELL VOLUME 69.2 fl (80-96); MEAN PLT VOLUME 7.5 fl (7.5-11.1); MONO % 5.5 % (3.8-10.2); NEUT % 83.6 % (42.8-82.8); PLATELET COUNT 465 K/MM3 (134-434); RBC 4.11 M/mm3 (3.60-5.2); RDW 18.8 % (11.6-15.6)
[2019-05-30 19:21] LABS: EPI CELLS 3.3 /HPF (0-5/HPF); HYALINE CASTS 8 /lpf (0-8); PH,URINE 6.5 (5.0-8.0); URINE APPEARANCE CLEAR; URINE BACTERIA 5.1 /hpf (NEGATIVE); URINE BILIRUBIN NEGATIVE (NEGATIVE); URINE COLOR YELLOW; URINE GLUCOSE (UA) NEGATIVE (NEGATIVE); URINE KETONE NEGATIVE (NEGATIVE); URINE LEUK ESTERASE 2+ (NEGATIVE); URINE NITRITE NEGATIVE (NEGATIVE); URINE PROTEIN NEGATIVE (NEGATIVE); URINE RBC 2 /hpf (0-4); URINE UROBILINOGEN 0.2 mg/dL (0.2-1.0); URINE WBC 19 /hpf (0-5)
[2019-05-30 19:35] LABS: INR 1.19 (0.83-1.09); PROTHROMBIN TIME (PATIENT) 14.1 SEC (9.7-13.0)
[2019-05-30 19:43] LABS: ALBUMIN 3.7 g/dl (3.4-5.0); BILIRUBIN,TOTAL 0.2 mg/dL (0.2-1); BLOOD UREA NITROGEN 10.2 mg/dL (7-18); CALCIUM 9.2 mg/dL (8.5-10.1); CREATININE 0.7 mg/dL (0.55-1.3); TOT PROT 7.4 g/dl (6.4-8.2)
[2019-05-31 04:18] LABS: ANISOCYTOSIS 2+; MACROCYTOSIS 0; OVALOCYTE 1+; PLATELET ESTIMATE NORMAL; TEAR DROP CELLS 1+
--- NOTE | 2019-05-31 13:35 | EKG ---
Test Reason : Blood Pressure : / mmHG Vent. Rate : 059 BPM Atrial Rate : 059 BPM P-R Int : 152 ms QRS Dur : 086 ms QT Int : 436 ms P-R-T Axes : 054 053 062 degrees QTc Int : 431 ms SINUS BRADYCARDIA OTHERWISE NORMAL ECG WHEN COMPARED WITH ECG OF 16-FEB-2019 02:57, NO SIGNIFICANT CHANGE WAS FOUND Confirmed by CLARENCE FOX MD ([id number]) on 05/31/2019 1:34:58 PM Referred By: Confirmed By:CLARENCE FOX MD
== END 2019-05-30 19:15 | disposition left against medical advice (07) ==
LOC: JER 16:16
DX: R10.13 Epigastric pain (principal)
CPT/HCPCS: 36415; 80053; 81003; 85025; 85610; 93005; 93010; 99282-25

== ENCOUNTER 2019-06-06 16:09 | Emergency (ER) | payer OTHER | END 2019-06-06 21:58 | disposition home or self-care (01) | LOC: JER 16:09 ==

== ENCOUNTER 2019-06-23 07:10 | Day surgery (SDC) | payer OTHER ==
[2019-06-23] MEDS ORDERED: FERRIC CARBOXYMALTOSE 750 MG in SODIUM CHLORIDE 250 ML IVPB ONE (10:50)
[2019-06-23] MEDS ORDERED: DEXAMETHASONE SOD PHOSPHATE 4 MG/1 ML VIAL IVPB ONE (11:21)
[2019-06-23] MEDS ORDERED: DEXAMETHASONE SOD PHOSPHATE 10 MG/1 ML VIAL ONE (11:24)
[2019-06-23 14:11] VITALS: TEMP 97.9
[2019-06-23 14:12] VITALS: BP 124/65; PULSE 66
== END 2019-06-23 13:45 | disposition home or self-care (01) ==
LOC: JONCNONCHE 07:10 → J7W 09:42 → JONCNONCHE 13:45
PROVIDERS: ATTEND Internal Medicine Hematology & Oncology
PROC: 3E033GC Introduction of Other Therapeutic Substance into Peripheral Vein, Percutaneous Approach (ICD-10-PCS; principal; 2019-06-23)
PROC: 3E033NZ Introduction of Analgesics, Hypnotics, Sedatives into Peripheral Vein, Percutaneous Approach (ICD-10-PCS; 2019-06-23)
DX: D64.9 Anemia, unspecified (principal)
CPT/HCPCS: 96365; 96375; J1100; J1439

== ENCOUNTER 2019-10-18 22:11 | Emergency (ER) | payer OTHER ==
[2019-10-18 22:18] VITALS: BP 179/83; PULSE 69; TEMP 98.2; BMI 22.3
--- NOTE | 2019-10-18 23:13 | PDOC ---
*Physical Exam - Vital Signs Last Vital Signs Temp Pulse Resp BP Pulse Ox 98.2 F 69 20 179/83 H 98 10/18/19 22:13 10/18/19 22:13 10/18/19 22:13 10/18/19 22:13 10/18/19 22:13 Medical Decision Making - Medical Decision Making 10/18/19 23:12 Patient seen by the advanced practice provider under my direct supervision. Ancillary testing reviewed as necessary. I agree with plan as outlined by the advanced practice provider. Discharge - Discharge Information Problems reviewed: Yes Clinical Impression/Diagnosis: Breast pain - Follow up/Referral - Patient Discharge Instructions - Post Discharge Activity
--- NOTE | 2019-10-18 23:29 | PDOC ---
History of Present Illness - General Chief Complaint: Pain Stated Complaint: RT BREAST PAIN Time Seen by Provider: 10/18/19 23:08 - History of Present Illness Initial Comments: 10/18/19 23:28 CHIEF COMPLAINT: breast pain HISTORY OF PRESENT ILLNESS: 58 y/o F hx of celiac disease, migraines, cervical cancer, HTN, asthma, anemia presents to ED with pain to R breast x 7 days and headache. Patient was seen at [facility] 3 days ago for breast pain and discharged after a negative x-ray, but patient reports pain has worsened over the past few day and she no longer can sleep due to the pain "even after taking a Percocet that I usually take for back pain." Patient describes her headache as her usual migraine. Denies any change in vision, weakness, difficulty speaking/swallowing/walking. No recent travel or sick contacts. PAST MEDICAL HISTORY: celiac disease, migraines, cervical cancer, HTN, asthma, anemia FAMILY HISTORY: Denies SOCIAL HISTORY: Denies tobacco, alcohol, illicit drug use. SURGICAL HISTORY: PRATEEK-BSO ALLERGIES: No known drug allergies REVIEW OF SYSTEMS General/Constitutional: Denies fever or chills. Denies weakness, weight change. HEENT: Denies change in vision. Denies ear pain or discharge. Denies sore throat. Cardiovascular: Denies chest pain or shortness of breath. Respiratory: Denies cough, wheezing, or hemoptysis. Gastrointestinal: Denies nausea, vomiting, diarrhea or constipation. Denies rectal bleeding. Genitourinary: Denies dysuria, frequency, or change in urination. Musculoskeletal: Denies joint or muscle swelling or pain. Denies neck or back pain. Skin and breasts: Right breast pain x 7 days. Neurologic: Headache. Denies vertigo, loss of consciousness, or loss of sensation. Psychiatric: Denies depression or anxiety. PHYSICAL EXAM General Appearance: Well-appearing, appropriately dressed. No apparent distress , no intoxication. HEENT: EOMI, PERRLA, normal ENT inspection, normal voice, TMs normal, pharynx normal. No conjunctival pallor. No photophobia, scleral icterus. Neck: Supple. Trachea midline. No tenderness, rigidity, carotid bruit, stridor , lymphadenopathy, or thyromegaly. Respiratory/Chest: Marked tenderness to R chest without erythema, warmth, or swelling. Lungs CTAB. No shortness of breath, chest tenderness, respiratory distress, accessory muscle use. No crackles, rales, rhonchi, stridor, wheezing, dullness Cardiovascular: RRR. S1, S2. No JVD, murmur, bradycardia, tachycardia. Vascular Pulses: Dorsalis-Pedis (R): 2+, Dorsalis-Pedis (L): 2+ Gastrointestinal/Abdominal: Normal bowel sounds. Abdomen soft, non-distended. No tenderness or rebound tenderness. No organomegaly, pulsatile mass, guarding , hernia, hepatomegaly, splenomegaly. Lymphatic: No adenopathy, tenderness. Musculoskeletal/Extremities: Normal inspection. FROM of all extremities, normal capillary refill. Pelvis Stable. No CVA tenderness. No tenderness to extremities, pedal edema, swelling, erythema or deformity. Integumentary: Appropriate color, dry, warm. 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 Fully oriented, alert. Appropriate mood/affect. Motor strength 5/5. No appreciable EOM palsy, facial droop or sensory deficit. Past History - Past Medical History Allergies/Adverse Reactions: Allergies Allergy/AdvReac Type Severity Reaction Status Date / Time aspirin Allergy Severe Hives Verified 06/06/19 16:17 lidocaine Allergy Severe Hives Verified 06/06/19 16:17 Penicillins Allergy Severe Hives Verified 06/06/19 16:17 Home Medications: Ambulatory Orders Metoprolol Succinate [Toprol XL -] 25 mg PO DAILY 10/24/12 Amlodipine Besylate [Norvasc -] 10 mg PO DAILY 08/25/13 Topiramate 100 mg PO DAILY 10/11/15 Atorvastatin Ca [Lipitor] 40 mg PO HS #30 tablet 01/12/17 Clopidogrel Bisulfate [Clopidogrel] 75 mg PO DAILY 02/18/19 Folic Acid 1 mg PO DAILY 02/18/19 Furosemide 40 mg PO DAILY 02/18/19 Gabapentin 100 mg PO DAILY 02/18/19 Oxybutynin Chloride [Oxybutynin Chloride ER] 10 mg PO DAILY 02/18/19 Pramipexole Dihydrochloride [Mirapex -] 1.5 mg PO DAILY 02/18/19 Oxycodone HCl/Acetaminophen [Percocet 5-325 mg Tablet] 1 tab PO Q6H PRN #10 tablet MDD 4 06/06/19 Clopidogrel Bisulfate [Plavix] 75 mg PO DAILY 06/23/19 Losartan Potassium 50 mg PO DAILY 06/23/19 Anemia: No Asthma: Yes Cancer: Yes (CERVICAL CANCER X 2) Cardiac Disorders: No CVA: No COPD: No CHF: No DVT: Yes Dementia: No Diabetes: No GI Disorders: Yes (CELIAC DISEASE) Disorders: Yes HTN: Yes Hypercholesterolemia: No Liver Disease: No Seizures: No Thyroid Disease: No - Surgical History Abdominal Surgery: No Appendectomy: No Cardiac Surgery: No Cholecystectomy: No Lung Surgery: No Neurologic Surgery: No Orthopedic Surgery: No - Immunization History Immunization Up to Date: Yes - Psycho Social/Smoking Cessation Hx Smoking History: Former smoker Have you smoked in the past 12 months: No If you are a former smoker, when did you quit?: 1999 Information on smoking cessation initiated: No Hx Alcohol Use: No Drug/Substance Use Hx: No Substance Use Type: None Hx Substance Use Treatment: No *Physical Exam - Vital Signs Last Vital Signs Temp Pulse Resp BP Pulse Ox 98.2 F 69 20 179/83 H 98 10/18/19 22:13 10/18/19 22:13 10/18/19 22:13 10/18/19 22:13 10/18/19 22:13 ED Treatment Course - LABORATORY CBC & Chemistry Diagram: 10/19/19 00:10 10/19/19 00:10 Medical Decision Making - Medical Decision Making 10/18/19 23:57 58 y/o F hx of celiac disease, migraines, cervical cancer (dx age 35) s/p PRATEEK and BSO, HTN, asthma, anemia presents to ED with pain to R breast x 7 days and headache. 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 Patient states she is followed by Dr. Lara for her migraines and has an appointment with him next month. Advised patient to take medication as prescribed and follow up with PCP and neurology within the next week . Advised patient of signs and symptoms for return to ED. Patient verbalized understanding and agrees to plan. Discharge - Discharge Information Problems reviewed: Yes Clinical Impression/Diagnosis: Breast pain Migraine Qualifiers: Migraine type: unspecified Status migrainosus presence: without status migrainosus Intractability: not intractable Qualified Code(s): G43.909 - Migraine, unspecified, not intractable, without status migrainosus Condition: Stable Disposition: HOME - Admission No - Follow up/Referral Referrals: Matthew Wiley MD [Staff Physician] - - Patient Discharge Instructions Patient Printed Discharge Instructions: DI for Breast Pain (Mastalgia), DI for Migraine - Post Discharge Activity
[2019-10-18] MEDS ORDERED: METOCLOPRAMIDE HCL INJECTION 10 MG/2 ML VIAL IVPUSH ONE (23:30)
[2019-10-18] MEDS ORDERED: KETOROLAC TROMETHAMINE 30 MG/1 ML VIAL IVPUSH ONE (23:30)
[2019-10-18] MEDS ORDERED: METOCLOPRAMIDE HCL INJECTION 10 MG/2 ML VIAL ONE (23:44)
[2019-10-18] MEDS ORDERED: KETOROLAC TROMETHAMINE 15 MG/ML VIAL ONE ×2 (23:45→23:48)
[2019-10-19] MEDS ORDERED: SODIUM CHLORIDE 0.9% 500 ML INFUS.BAG IV ONE (00:10)
[2019-10-19 00:23] LABS: EOS % 2.5 % (0-4.5); HEMATOCRIT 35.5 % (32.4-45.2); HEMOGLOBIN 11.9 GM/dL (10.7-15.3); LYMPH % 25.8 % (8-40); MCH 30.1 pg (25.7-33.7); MCHC 33.4 g/dl (32.0-36.0); MEAN PLT VOLUME 7.4 fl (7.5-11.1); MONO % 10.5 % (3.8-10.2); NEUT % 60.2 % (42.8-82.8); PLATELET COUNT 336 K/MM3 (134-434); RBC 3.95 M/mm3 (3.60-5.2); RDW 12.6 % (11.6-15.6); WHITE BLOOD COUNT 5.5 K/mm3 (4.0-10.0)
[2019-10-19 00:46] LABS: ALBUMIN 3.5 g/dl (3.4-5.0); BILIRUBIN,TOTAL 0.1 mg/dL (0.2-1); BLOOD UREA NITROGEN 16.1 mg/dL (7-18); CALCIUM 9.1 mg/dL (8.5-10.1); CREATININE 0.8 mg/dL (0.55-1.3); POTASSIUM 3.9 mmol/L (3.5-5.1); TOT PROT 6.9 g/dl (6.4-8.2)
== END 2019-10-19 01:36 | disposition home or self-care (01) ==
LOC: JER 22:11
DX: G43.909 Migraine, unspecified, not intractable, without status migrainosus (principal); N64.4 Mastodynia; I10 Essential (primary) hypertension; Z87.19 Personal history of other diseases of the digestive system; Z87.09 Personal history of other diseases of the respiratory system; Z86.718 Personal history of other venous thrombosis and embolism; Z79.02 Long term (current) use of antithrombotics/antiplatelets; Z85.41 Personal history of malignant neoplasm of cervix uteri; Z90.710 Acquired absence of both cervix and uterus; Z90.79 Acquired absence of other genital organ(s); Z90.722 Acquired absence of ovaries, bilateral; Z88.6 Allergy status to analgesic agent; Z88.0 Allergy status to penicillin; Z88.8 Allergy status to other drugs, medicaments and biological substances
CPT/HCPCS: 36415; 80053; 85025; 99283-25

== ENCOUNTER 2020-06-22 11:31 | Inpatient (IN) | payer OTHER ==
[2020-06-22 11:41] VITALS: BMI 22.6
--- NOTE | 2020-06-22 12:07 | PDOC ---
History of Present Illness - General Chief Complaint: Syncope/Near Syncope Stated Complaint: FALL Time Seen by Provider: 06/22/20 12:05 History Source: Patient Exam Limitations: No Limitations - History of Present Illness Initial Comments: 06/22/20 12:07 HPI: 60 yo F pmh celiac disease, migraines, cervical cancer, HTN, asthma, anemia presenting with weakness, syncope, dehydration with falls x2 in setting of almost NPO for 2 days since extraction of six teeth. Patient reports waking up feeling fatigued, weak, lightheaded, walked out of her room and fell down. She got back up, thinking she needed water and walked to the kitchen where she again fell down striking the right side of her head on the ground. She endorses concurrent chest pain over her left chest, non-radiating, constant, pressure, without associated diaphoresis, SOB. After falling she lost consciousness for an unknown amount of time before waking up, going to the phone and calling 911. Now endorsing total body pain with worst pain on right head and right ribs. Takes percocet at home for chronic back pains, reports she has not taken any pain medication this morning. Denies fevers, vomiting, change in vision, focal weakness / numbness / tingling. Past History - Travel History Traveled outside of the country in the last 30 days: No Close contact w/someone who was outside of country & ill: No - Medical History Allergies/Adverse Reactions: Allergies Allergy/AdvReac Type Severity Reaction Status Date / Time aspirin Allergy Severe Hives Verified 06/22/20 11:39 lidocaine Allergy Severe Hives Verified 06/22/20 11:39 Penicillins Allergy Severe Hives Verified 06/22/20 11:39 Home Medications: Ambulatory Orders Metoprolol Succinate [Toprol XL -] 25 mg PO DAILY 10/24/12 Amlodipine Besylate [Norvasc -] 10 mg PO DAILY 08/25/13 Topiramate 100 mg PO DAILY 10/11/15 Atorvastatin Ca [Lipitor] 40 mg PO HS #30 tablet 01/12/17 Clopidogrel Bisulfate [Clopidogrel] 75 mg PO DAILY 02/18/19 Folic Acid 1 mg PO DAILY 02/18/19 Furosemide 40 mg PO DAILY 02/18/19 Gabapentin 100 mg PO DAILY 02/18/19 Oxybutynin Chloride [Oxybutynin Chloride ER] 10 mg PO DAILY 02/18/19 Pramipexole Dihydrochloride [Mirapex -] 1.5 mg PO DAILY 02/18/19 Oxycodone HCl/Acetaminophen [Percocet 5-325 mg Tablet] 1 tab PO Q6H PRN #10 tablet MDD 4 06/06/19 Clopidogrel Bisulfate [Plavix] 75 mg PO DAILY 06/23/19 Losartan Potassium 50 mg PO DAILY 06/23/19 Anemia: No Asthma: Yes Cancer: Yes (CERVICAL CANCER X 2) Cardiac Disorders: No CVA: No COPD: No CHF: No DVT: Yes Dementia: No Diabetes: No GI Disorders: Yes (CELIAC DISEASE) Disorders: Yes HTN: Yes Hypercholesterolemia: No Liver Disease: No Seizures: No Thyroid Disease: No - Surgical History Abdominal Surgery: No Appendectomy: No Cardiac Surgery: No Cholecystectomy: No Lung Surgery: No Neurologic Surgery: No Orthopedic Surgery: No - Immunization History Immunization Up to Date: Yes - Psycho-Social/Smoking History Smoking History: Never smoked Have you smoked in the past 12 months: No If you are a former smoker, when did you quit?: 1999 - Substance Abuse Hx (Audit-C & DAST Scrn) How often the patient has a drink containing alcohol: Never Score: In Men: 4 or > Positive; In Women: 3 or > Positive: 0 Screen Result (Pos requires Nsg. Audit-10AR): Negative In the last yr the pt used illegal drug/Rx for NonMed reason: No Score: Yes response is considered Positive: 0 Screen Result (Positive result requires Nsg. DAST-10): Negative Review of Systems - Review of Systems Able to Perform ROS?: Yes Is the patient limited Setswana proficient: Yes Constitutional: Yes: Weakness. No: Chills, Diaphoresis, Fever HEENTM: Yes: Mouth Pain (Dental extraction 06/20), Dental Problems. No: Recent change in vision, Nose Pain, Nose Congestion, Throat Pain Respiratory: No: Cough, Shortness of Breath, Wheezing Cardiac (ROS): Yes: Chest Pain, Lightheadedness, Syncope, Chest Tightness. No: Edema, Irregular Heart Rate, Palpitations ABD/GI: Yes: Nausea. No: Constipated, Diarrhea, Vomiting : No: Burning, Dysuria, Frequency Musculoskeletal: Yes: Back Pain, Muscle Pain. No: Muscle Weakness, Neck Pain Integumentary: No: Bruising, Pruritus, Rash Neurological: Yes: Headache. No: Numbness, Tingling, Weakness Psychiatric: No: Anxiety, Depression, Stressors Endocrine: Yes: Increased Thirst. No: Increased Urine, Change in Weight Hematologic/Lymphatic: No: Anemia, Blood Clots, Easy Bleeding All Other Systems: Reviewed and Negative *Physical Exam - Vital Signs Last Vital Signs Temp Pulse Resp BP Pulse Ox 97.7 F 101 H 20 116/67 100 06/22/20 11:39 06/22/20 11:39 06/22/20 11:39 06/22/20 11:39 06/22/20 11:39 - Physical Exam 06/22/20 12:50 Vitals reviewed, notable for tachycardia to 100s GEN: Appears fatigued, appears stated age, NAD. AAOx3. HEENT: NCAT, EOMI, PERRL, facial pallor. Sclera anicteric, non-injected. No facial asymmetry. Dry mucous membranes. Normal voice. CV: Tachycardia, NSR, S1/S2, no murmurs / rubs / gallops appreciated. LUNG: CTABL, normal work of breathing. No wheezes, rales, rhonchi. No cough. Speaking full sentences. R lateral chest wall TTP. GI: Soft, NTND, +BS, no guarding, no rebound. No masses. EXTREMITIES: 2+ distal pulses. No clubbing / cyanosis / edema. No gross deformity in any extremity. SKIN: Warm, dry, no rashes appreciated, non-jaundiced. +Pallor PSYCH: Normal mood and affect. Cooperative and appropriate. NEURO: CN grossly intact. Moving all extremities well. Normal strength and sensation to light touch. Heart Score/ECG Review - History History: Moderately suspicious - Electrocardiogram EKG: Non specific repolarization disturbance - Age Age: 45-65 - Risk Factors Risk Factors Heart Score: Yes Hx Hypercholesterolemia, Yes Hx Hypertension Based on the list above the patient has:: 1-2 risk factors - Troponin Troponin: </= normal limit - Score Heart Score - Total: 4 ED Treatment Course - LABORATORY CBC & Chemistry Diagram: 06/22/20 14:05 06/22/20 14:05 Medical Decision Making - Medical Decision Making 06/22/20 12:55 60 yo F pmh celiac disease, migraines, cervical cancer, HTN, asthma, anemia presenting with weakness, syncope, dehydration with falls x2 in setting of almost NPO for 2 days since extraction of six teeth. History concerning for recent surgery, anemia, reported dehydration, chest pain, syncope with head trauma and LOC. Exam notable for R chest TTP, mild tachycardia, pale color, dry mucus membranes. Together concerning for trauma evaluation in setting of fall on plavix (ranging neck, no c-spine tenderness), syncope workup (dehydration likely, also concerning for anemia, arrhythmia / electrolyte abnormality in setting of poor PO), and chest pain evaluation (r/o ACS vs rib fractures). - CBC, CMP, Cardiac Profile - EKG, CXR, R Rib Series - 1L NS to start, likely larger deficit - Cardiac monitoring - Ofirmev 1g for pain 06/22/20 15:43 EKG with new T wave inversions V3, V4, V5, V6 as well as II, III, aVF 93bpm, NSR, normal axis, normal intervals, no ST elevations, other changes noted above Patient comfortable, resting the department with stable vitals Discussed the need for blood with patient, consent obtained, documented, and given to nursing staff Type and screen and 2U PRBCs ordered 20G IV placed via POCUS my myself with good venous blood return and flow Given new EKG changes, symptomatic anemia, syncope, chest pain, plan for admission to telemetry Discharge - Discharge Information Problems reviewed: Yes Clinical Impression/Diagnosis: T wave inversion in EKG, Syncope and collapse, Acute electrocardiogram changes Anemia Qualifiers: Anemia type: unspecified type Qualified Code(s): D64.9 - Anemia, unspecified Chest pain Qualifiers: Chest pain type: unspecified Qualified Code(s): R07.9 - Chest pain, unspecified Condition: Guarded - Admission Yes - Follow up/Referral Referrals: Matthew Wiley MD [Primary Care Provider] - - Patient Discharge Instructions - Post Discharge Activity
[2020-06-22] MEDS ORDERED: ACETAMINOPHEN 1000 MG/100 ML VIAL (NON FORMULARY) IVPB ONE (12:26)
[2020-06-22] MEDS ORDERED: SODIUM CHLORIDE 0.9% 500 ML INFUS.BAG IV ONE (12:26)
--- NOTE | 2020-06-22 13:04 | PDOC ---
Documentation entered by Jamila Batista SCRIBE, acting as scribe for Zaire Kwan MD. Zaire Kwan MD: This documentation has been prepared by the Lester medrano Xhesika, SCRIBE, under my direction and personally reviewed by me in its entirety. I confirm that the documentation accurately reflects all work, treatment, procedures, and medical decision making performed by me. Attending Attestation - Resident Resident Name: Norman Villa - ED Attending Attestation I have performed the following: I have examined & evaluated the patient, The case was reviewed & discussed with the resident, I agree w/resident's findings & plan, Exceptions are as noted - HPI HPI: 06/22/20 12:17 The patient is a 60 Year-old female, with a history of asthma, celiac disease, JIMMY, cervical cancer, kidney stones, chronic back pain, DJD, ?lumbar radiculopathy, HTN, PAD, s/p RLE stent placement in 2014 at [facility], who presents to the ED with rib pain s/p syncopal episode. Pt states she had several teeth extracted several days ago. The patient had an episode where she felt very lightheaded heading to the bathroom yesterday and syncopized, she went back to bed this morning the same thing happened when she was heading to the kitchen. Endorses feeling palpitations. pt reports LOC and head injury. Pt is on Plavix. Allergies: Aspirin, Lidocaine, Penicillins PCP: Dr. Wiley - Physicial Exam PE: 06/22/20 12:53 GENERAL: The patient is awake, alert, and fully oriented, Nontoxic - in no acute distress. HEAD: Normocephalic, mild tenderness to the R parital scalp w/o stepoffs, ecchymosis, crepitus EYES: extraocular movements intact, sclera anicteric, conjunctiva clear. ENT: Normal voice, dry mucous membranes. NECK: Normal range of motion, supple, no focal midline tendernes to thoracic/lumbar/cervical spine, no focal bony tenderness LUNGS: Breath sounds equal, clear to auscultation bilaterally. No wheezes, no rhonchi, no rales. CHEST: Mild tendernes to R flank HEART: Regular rate and rhythm, normal S1 and S2 without murmur, rub or gallop. ABDOMEN: Soft, nontender, No guarding, no rebound. No CVA tenderness, EXTREMITIES: Normal range of motion, no edema. NEUROLOGICAL: No facial assymetry, Normal speech, moving all 4 extremities spontaneously and symmetrically PSYCH: Normal mood, normal affect. SKIN: Warm, Dry, normal turgor, - Medical Decision Making 06/22/20 12:29 sp syncope, suspect dehyudration vs arrythmias will obtain ct head, xrays of ribs pt on panel monitor will obtain labs/trops/ekg to r/o anemia, metabolic derangement, acs anticipate admission for telemetry monitoring 06/22/20 14:29 labs reviewed noted for anemia to 6 no active oral bleeding currently, but pt and partner says there was significant bleeding intraorally, but has stopped pt has a hx of anemia due to her celiac disease requiring transfusion will transfuse 2u PRBC will admit for further management Heart Score/ECG Review - ECG Impressions Comment:: 06/22/20 13:04 Twelve-lead EKG was performed and reviewed by me. There is normal sinus rhythm with a normal rate. Rate of 93 T wave inversions in the anterior lateral leads T wave inversions are new when compared to prior EKG in 2019 Discharge - Discharge Information Problems reviewed: Yes Clinical Impression/Diagnosis: T wave inversion in EKG, Syncope and collapse, Acute electrocardiogram changes Anemia Qualifiers: Anemia type: unspecified type Qualified Code(s): D64.9 - Anemia, unspecified Chest pain Qualifiers: Chest pain type: unspecified Qualified Code(s): R07.9 - Chest pain, unspecified Condition: Stable Disposition: HOME - Follow up/Referral - Patient Discharge Instructions - Post Discharge Activity
[2020-06-22] MEDS ORDERED: ACETAMINOPHEN INJECTION 100 ML IVPB ONE (13:07)
[2020-06-22 14:16] LABS: BASO % 0.2 % (0-2.0); HEMATOCRIT 21.8 % (32.4-45.2); LYMPH % 6.2 % (8-40); MCH 25.4 pg (25.7-33.7); MCHC 31.7 g/dl (32.0-36.0); MEAN CELL VOLUME 80.1 fl (80-96); MEAN PLT VOLUME 7.3 fl (7.5-11.1); MONO % 2.9 % (3.8-10.2); NEUT % 90.7 % (42.8-82.8); PLATELET COUNT 412 K/MM3 (134-434); RBC 2.73 M/mm3 (3.60-5.2); RDW 16.8 % (11.6-15.6); WHITE BLOOD COUNT 11.4 K/mm3 (4.0-10.0)
[2020-06-22 14:24] LABS: HEMOGLOBIN 6.9 GM/dL (10.7-15.3)
[2020-06-22 14:52] LABS: ALBUMIN 3.5 g/dl (3.4-5.0); ALK PHOS 145 U/L (45-117); ANION GAP 10 MMOL/L (8-16); BILIRUBIN,TOTAL 0.2 mg/dL (0.2-1); BLOOD UREA NITROGEN 50.8 mg/dL (7-18); CALCIUM 8.9 mg/dL (8.5-10.1); CHLORIDE 106 mmol/L (98-107); CO2 23 mmol/L (21-32); CREATININE 1.2 mg/dL (0.55-1.3); GLUCOSE,RANDOM 135 mg/dL (74-106); POTASSIUM 4.6 mmol/L (3.5-5.1); SGOT/AST 29 U/L (15-37); SGPT/ALT 18 U/L (13-61); SODIUM 139 mmol/L (136-145)
--- NOTE | 2020-06-22 17:08 | HP ---
CHIEF COMPLAINT: syncope PCP: Guero HISTORY OF PRESENT ILLNESS: Patient is a 60 y/o female with a history of celiac disease, migraine, HTN, asthma , anemia, and blood clots with stents in her legs and abdomen. Patient was on the toilet this morning while having a bowel movement when she became dizzy passed out and hit her head. Then later in the day she was standing at the refrigerator and the same thing happened. She states she was on the ground for 20 minutes before coming to. She did not urinate on herself during this time. Patient states this has never happened in the past. She had a normal colonoscopy with Dr. Miranda a few months ago. Denies any blood in her stool. Denies any chest pain. Only symptom is a headache at the right temporal region. patient had dental work this week where she had 6 teeth extracted. ER course was notable for: (1) ofirmev (2) EKG with twave inversions (3) Recent Travel: PAST MEDICAL HISTORY: celiac disease, migraine, HTN, asthma , anemia, and blood clots PAST SURGICAL HISTORY: Hysterectomy from cervical cancer at age 35, unclear if ovaries are still there Social History: Smoking: quit 25 years ago, used to smoke 2 packs a day Alcohol: denies Drugs: denies Allergies aspirin Allergy (Severe, Verified 06/22/20 11:39) Hives lidocaine Allergy (Severe, Verified 06/22/20 11:39) Hives PT. UNSURE OF WHEN, AND WHY, IT WAS LONG TIME AGO Penicillins Allergy (Severe, Verified 06/22/20 11:39) Hives HOME MEDICATIONS: Home Medications Medication Instructions Recorded Metoprolol Succinate [Toprol XL -] 25 mg PO DAILY 10/24/12 Amlodipine Besylate [Norvasc -] 10 mg PO DAILY 08/25/13 Atorvastatin Ca [Lipitor] 40 mg PO HS #30 tablet 01/12/17 Clopidogrel Bisulfate [Clopidogrel] 75 mg PO DAILY 02/18/19 Folic Acid 1 mg PO DAILY 02/18/19 Furosemide 40 mg PO DAILY 02/18/19 Oxycodone HCl/Acetaminophen 1 tab PO Q6H PRN #10 tablet MDD 4 06/06/19 [Percocet 5-325 mg Tablet] Losartan Potassium 50 mg PO DAILY 06/23/19 REVIEW OF SYSTEMS CONSTITUTIONAL: Absent: fever, chills, diaphoresis, generalized weakness, malaise, loss of appetite, weight change HEENT: Absent: rhinorrhea, nasal congestion, throat pain, throat swelling, difficulty swallowing, mouth swelling, ear pain, eye pain, visual changes CARDIOVASCULAR: Absent: chest pain, syncope, palpitations, irregular heart rate, lightheadedness, peripheral edema RESPIRATORY: Absent: cough, shortness of breath, dyspnea with exertion, orthopnea, wheezing, stridor, hemoptysis GASTROINTESTINAL: Absent: abdominal pain, abdominal distension, nausea, vomiting, diarrhea, constipation, melena, hematochezia GENITOURINARY: Absent: dysuria, frequency, urgency, hesitancy, hematuria, flank pain, genital pain MUSCULOSKELETAL: Absent: myalgia, arthralgia, joint swelling, back pain, neck pain SKIN: Absent: rash, itching, pallor HEMATOLOGIC/IMMUNOLOGIC: Absent: easy bleeding, easy bruising, lymphadenopathy, frequent infections ENDOCRINE: Absent: unexplained weight gain, unexplained weight loss, heat intolerance, cold intolerance NEUROLOGIC: headache Absent: focal weakness or paresthesias, dizziness, unsteady gait, seizure, mental status changes, bladder or bowel incontinence PSYCHIATRIC: Absent: anxiety, depression, suicidal or homicidal ideation, hallucinations. PHYSICAL EXAMINATION Vital Signs - 24 hr 06/22/20 11:39 Temperature 97.7 F Pulse Rate 101 H Respiratory 20 Rate Blood Pressure 116/67 O2 Sat by Pulse 100 Oximetry (%) GENERAL: Awake, alert, and fully oriented, in no acute distress. HEAD: Normal with no signs of trauma. EYES: Pupils equal, round and reactive to light, extraocular movements intact EARS, NOSE, THROAT:Moist mucous membranes. LUNGS: Breath sounds equal, clear to auscultation bilaterally. No wheezes, and no crackles. No accessory muscle use. HEART: Regular rate and rhythm, normal S1 and S2 without murmur, rub or gallop. ABDOMEN: Soft, nontender, not distended, normoactive bowel sounds, no guarding, no rebound, no masses. old surgical scars Rectal exam: no gross blood, no hemorrhoids felt MUSCULOSKELETAL: Normal range of motion at all joints. UPPER EXTREMITIES: 2+ pulses, warm, well-perfused. No cyanosis. No clubbing. No peripheral edema. LOWER EXTREMITIES: No peripheral edema. SKIN: Warm, dry, normal turgor, no rashes or lesions noted, normal capillary refill. Laboratory Results - last 24 hr 06/22/20 06/22/20 06/22/20 14:05 14:05 16:14 WBC 11.4 H RBC 2.73 L Hgb 6.9 L* Hct 21.8 L D MCV 80.1 MCH 25.4 L D MCHC 31.7 L RDW 16.8 H Plt Count 412 D MPV 7.3 L Absolute Neuts (auto) 10.4 H Neutrophils % 90.7 H Lymphocytes % 6.2 L D Monocytes % 2.9 L Eosinophils % 0.0 D Basophils % 0.2 Nucleated RBC % 0 Sodium 139 Potassium 4.6 Chloride 106 Carbon Dioxide 23 Anion Gap 10 BUN 50.8 H Creatinine 1.2 Est GFR (CKD-EPI)AfAm 56.89 Est GFR (CKD-EPI)NonAf 49.08 Random Glucose 135 H Calcium 8.9 Total Bilirubin 0.2 AST 29 ALT 18 Alkaline Phosphatase 145 H Creatine Kinase 101 Troponin I < 0.02 Total Protein 7.0 Albumin 3.5 Crossmatch See Detail ASSESSMENT/PLAN: Patient is a 60 y/o female with a history of celiac disease, migraine, HTN, asthma , anemia, and blood clots who is admitted for syncope and anemia. #Syncope - likely 2/2 to anemia, hypovolemia induced syncope - Head CT: negative for any acute abnormalities - patient unable to tolerate orthostatics, hx suspicious for orthostatic hypotension - fall risk precautions #anemia - know hx of iron deficiency as an outpatient, on ferrous sulfate, one month ago Hgb 9.4 - could also be 2/2 to recent dental procedure - f/u repeat studies - patient to receive 2 units PRBC - recent colonoscopy, f/u with Dr. Miranda patients primary GI for new acute anemia - f/u FOBT, negative on rectal exam #new twave inversions - likely 2/2 to demand, unlikely ACS with negative troponin and negative for chest pain -troponin negative x1, f/u repeat - monitor on tele - CAD nuclear stress test : 01/11/2017: EF 58%, subtle reversible small apical and inferobasilar defect, mild ischemia #Hx HTN - continue amlodipine and metorpolol - hold losartan while pressures labile, can restart if indicated #hx stents - lower extremity, and pelvic stents patient not on AC? - f/u cardiac recommendations, hold clopidogrel and ASA while patient anemic #hx HLD - continue atorvastatin #chronic back pain - continue oxycodone 5 mg po q6h prn #pulmonary nodules - CT chest 11/03/2017: nodularity without change from previous - monitor as outpatient DVT ppx - SCD's, no AC while anemic FEN - NPO for now - NS @ 100 Dispo: monitor on tele - unable to confirm all home meds with pharmacy closed on , please reconcile Wednesday Family Medical History Family History: As Documented Visit type - Emergency Visit Emergency Visit: Yes ED Registration Date: 06/22/20 Care time: The patient presented to the Emergency Department on the above date and was hospitalized for further evaluation of their emergent condition. - New Patient This patient is new to me today: Yes Date on this admission: 06/23/20 - Critical Care Critical Care patient: No ATTENDING PHYSICIAN STATEMENT I saw and evaluated the patient. I reviewed the resident's note and discussed the case with the resident. I agree with the resident's findings and plan as documented. SUBJECTIVE: OBJECTIVE: ASSESSMENT AND PLAN:
[2020-06-22] MEDS: SODIUM CHLORIDE 1,000 ML IV SCH (17:59)
[2020-06-22 18:40] LABS: IRON SERUM 86 ug/dL (50-175); TOTAL IRON BINDING CAPACITY 378 ug/dL (250-450)
--- NOTE | 2020-06-22 19:11 | PN ---
Teaching Attending Note Name of Resident: Cayla Isaias ATTENDING PHYSICIAN STATEMENT I saw and evaluated the patient. I reviewed the resident's note and discussed the case with the resident. I agree with the resident's findings and plan as documented. SUBJECTIVE: pt seen and examined OBJECTIVE: Last Vital Signs Temp Pulse Resp BP Pulse Ox 97.7 F 101 H 20 116/67 100 06/22/20 11:39 06/22/20 11:39 06/22/20 11:39 06/22/20 11:39 06/22/20 11:39 GENERAL: Awake, alert, and fully oriented, in no acute distress. HEAD: Normal with no signs of trauma. loss of multiple teeth EYES: Pupils equal, round and reactive to light, sclera anicteric, conjunctiva clear. LUNGS: Breath sounds equal, clear to auscultation bilaterally. No wheezes, and no crackles. No accessory muscle use. HEART: Regular rate and rhythm, normal S1 and S2 ABDOMEN: Soft, diffuse tenderness, no rebound, BS+ MUSCULOSKELETAL: Normal range of motion at all joints. No bony deformities or tenderness. No CVA tenderness. UPPER EXTREMITIES: 2+ pulses, warm, well-perfused. No cyanosis. No clubbing. No peripheral edema. LOWER EXTREMITIES: 2+ pulses, warm, well-perfused. No calf tenderness. No peripheral edema. NEUROLOGICAL: Cranial nerves II-XII intact. Normal speech. CBCD WBC 11.4 K/mm3 (4.0-10.0) H 06/22/20 14:05 RBC 2.73 M/mm3 (3.60-5.2) L 06/22/20 14:05 Hgb 6.9 GM/dL (10.7-15.3) L* 06/22/20 14:05 Hct 21.8 % (32.4-45.2) L D 06/22/20 14:05 MCV 80.1 fl (80-96) 06/22/20 14:05 MCHC 31.7 g/dl (32.0-36.0) L 06/22/20 14:05 RDW 16.8 % (11.6-15.6) H 06/22/20 14:05 Plt Count 412 K/MM3 (134-434) D 06/22/20 14:05 MPV 7.3 fl (7.5-11.1) L 06/22/20 14:05 CMP Sodium 139 mmol/L (136-145) 06/22/20 14:05 Potassium 4.6 mmol/L (3.5-5.1) 06/22/20 14:05 Chloride 106 mmol/L (98-107) 06/22/20 14:05 Carbon Dioxide 23 mmol/L (21-32) 06/22/20 14:05 Anion Gap 10 MMOL/L (8-16) 06/22/20 14:05 BUN 50.8 mg/dL (7-18) H 06/22/20 14:05 Creatinine 1.2 mg/dL (0.55-1.3) 06/22/20 14:05 Calcium 8.9 mg/dL (8.5-10.1) 06/22/20 14:05 Total Bilirubin 0.2 mg/dL (0.2-1) 06/22/20 14:05 AST 29 U/L (15-37) 06/22/20 14:05 ALT 18 U/L (13-61) 06/22/20 14:05 Alkaline Phosphatase 145 U/L (45-117) H 06/22/20 14:05 Total Protein 7.0 g/dl (6.4-8.2) 06/22/20 14:05 Albumin 3.5 g/dl (3.4-5.0) 06/22/20 14:05 Active Medications Acetaminophen (Tylenol -) 325 mg PO Q6H PRN PRN Reason: PAIN LEVEL 6-10 Amlodipine Besylate (Norvasc -) 10 mg PO DAILY [facility] Atorvastatin Calcium (Lipitor -) 40 mg PO HS [facility] Ferrous Sulfate (Feosol -) 325 mg PO BID [facility] Sodium Chloride (Normal Saline -) 1,000 mls @ 100 mls/hr IV ASDIR ROSALVA Last Admin: 06/22/20 17:59 Dose: 100 mls/hr Documented by: Metoprolol Succinate (Toprol Xl -) 25 mg PO DAILY [facility] Oxycodone HCl (Roxicodone -) 5 mg PO Q6H PRN PRN Reason: PAIN LEVEL 6-10 ASSESSMENT AND PLAN: 60 y/o female with a history of celiac disease, migraine, HTN, asthma , anemia, and blood clots with stents in her legs and abdomen. Patient was on the toilet this morning while having a bowel movement when she became dizzy passed out and hit her head # Acute Anemia, likely 2/2 Upper GI bleed - recent colonoscopy negative, had epigastric discomfort, melena of one week - on antiplatelets therapy for CAD - NPO, IV fluids, PPi - pain management as needed, avoid NSAIDs - will need EGD +/- repeat colonoscopy once stable - GI consult - Cardiology consult to address antiplatelets - trend H&H keep>7 Celiac disease Migraine HTN Asthma PAD? DVT prophylaxis with SCD
[2020-06-22 19:35] LABS: RETICULOCYTES 1.78 % (0.5-1.5)
[2020-06-22] MEDS ORDERED: ACETAMINOPHEN 325 MG TABLET (FP) ONE (19:58)
[2020-06-22] MEDS ORDERED: oxyCODONE HCL 5 MG TABLET ONE (19:58)
[2020-06-22] MEDS: oxyCODONE HCL 5 MG TABLET PO PRN (20:11)
[2020-06-22] MEDS: ACETAMINOPHEN 325 MG TABLET (FP) PO PRN (20:11)
--- NOTE | 2020-06-22 20:40 | CON.GI ---
Consult Consult Specialty:: GI - History of Present Illness History of Present Illness: 60 y/o F with PMH of Celiac sprue, anemia, PVD wa admitted with syncope associated with oxycodone use after tooth extraction. She had black stool but is on oral iron. This was accompanied by chest pain. Troponin were negative.She had a poor po intake the past 2 days because of tooth extraction. She is on PLavix and Aspirin use for PVD. EGD was done findings consistent with Celiac sprue. Colonoscopy was done on 04/2020 was normal. - Alcohol/Substance Use Hx Alcohol Use: No - Smoking History Smoking history: Never smoked Have you smoked in the past 12 months: No If you are a former smoker, when did you quit?: 1999 Home Medications - Allergies Allergies/Adverse Reactions: Allergies Allergy/AdvReac Type Severity Reaction Status Date / Time aspirin Allergy Severe Hives Verified 06/22/20 11:39 lidocaine Allergy Severe Hives Verified 06/22/20 11:39 Penicillins Allergy Severe Hives Verified 06/23/20 02:47 - Home Medications Home Medications: Ambulatory Orders Metoprolol Succinate [Toprol XL -] 25 mg PO DAILY 10/24/12 Amlodipine Besylate [Norvasc -] 10 mg PO DAILY 08/25/13 Atorvastatin Ca [Lipitor] 40 mg PO HS #30 tablet 01/12/17 Clopidogrel Bisulfate [Clopidogrel] 75 mg PO DAILY 02/18/19 Folic Acid 1 mg PO DAILY 02/18/19 Furosemide 40 mg PO DAILY 02/18/19 Oxycodone HCl/Acetaminophen [Percocet 5-325 mg Tablet] 1 tab PO Q6H PRN #10 tablet MDD 4 06/06/19 Losartan Potassium 50 mg PO DAILY 06/23/19 Aspirin [Ecotrin] 81 mg PO DAILY 06/22/20 Diphenhydramine [Benadryl -] 50 mg PO HS PRN 06/22/20 Ferrous Sulfate 325 mg PO BID 06/22/20 Physical Exam-GI Vital Signs: Vital Signs Temperature 98.6 F 06/22/20 20:15 Pulse Rate 91 H 06/22/20 20:15 Respiratory Rate 20 06/22/20 20:15 Blood Pressure 130/60 06/22/20 20:15 O2 Sat by Pulse Oximetry (%) 100 06/22/20 20:15 Labs: CBC, BMP 06/22/20 14:05 06/22/20 14:05 Problem List - Problems (1) Anemia Assessment/Plan: multifactorial including secondary to celiac sprue R>keep hemoglobin above 8,transfuse 1 unit PRBC recent colonoscopy was negative for EGD once medically cleared by cardiology and neurology Code(s): D64.9 - ANEMIA, UNSPECIFIED Qualifiers: Anemia type: unspecified type Qualified Code(s): D64.9 - Anemia, unspecified (2) Syncope Code(s): R55 - SYNCOPE AND COLLAPSE
[2020-06-22] MEDS: ATORVASTATIN CA 40 MG TABLET (FP) PO SCH (22:38)
[2020-06-22] MEDS: PANTOPRAZOLE SODIUM 40 MG VIAL IVPUSH SCH (22:38)
[2020-06-22] MEDS: FERROUS SO4 325 MG TABLET (FP) PO SCH (22:38)
[2020-06-22] MEDS ORDERED: MELATONIN 5 MG TABLETS PO ONE (22:45)
[2020-06-22] MEDS ORDERED: traMADol HCL 50 MG TABLET PO ONE (22:45)
--- NOTE | 2020-06-23 09:01 | CON.CARD ---
Cardiology Consult (text) - Consultation Consultation Note: Coverage for Dr. Tammy Brush Chief Complaint: Events noted, notes reviewed, syncopal episode with a preceding prodrome, patient reported chest discomfort, patient denies dyspnea History of Present Illness: Seen and examined on telemetry. Full consult dictated Medications: Current Medications Generic Name Dose Route Start Last Admin Trade Name Freq PRN Reason Stop Dose Admin Acetaminophen 325 mg 06/22/20 17:30 06/22/20 20:11 Tylenol - PO 325 mg Q6H PRN Administration PAIN LEVEL 6-10 Amlodipine Besylate 10 mg 06/23/20 10:00 Norvasc - PO DAILY ROSALVA Atorvastatin Calcium 40 mg 06/22/20 22:00 06/22/20 22:38 Lipitor - PO 40 mg HS ROSALVA Administration Ferrous Sulfate 325 mg 06/22/20 22:00 06/22/20 22:38 Feosol - PO 325 mg BID ROSAL[facility] Administration Sodium Chloride 1,000 mls @ 100 mls/hr 06/22/20 17:00 06/22/20 17:59 Normal Saline - IV 100 mls/hr ASDIR ROSALVA Administration Metoprolol Succinate 25 mg 06/23/20 10:00 Toprol Xl - PO DAILY [facility] Oxycodone HCl 5 mg 06/22/20 17:30 06/22/20 20:11 Roxicodone - PO 5 mg Q6H PRN Administration PAIN LEVEL 6-10 Pantoprazole Sodium 40 mg 06/22/20 22:00 06/22/20 22:38 Protonix Iv IVPUSH 40 mg BID ROSALVA Administration Review of Systems Constitutional: denies Chills or Fever Respiratory: denies: Dyspnea Cardiovascular: As noted above Gastrointestinal: denies Nausea, Vomiting, Diarrhea or Abdominal Discomfort Genitourinary: denies: Hematuria Musculoskeletal: No symptoms reported Vital Signs: Last Vital Signs Temp Pulse Resp BP Pulse Ox 98.8 F 85 18 137/92 96 06/23/20 04:05 06/23/20 04:05 06/23/20 04:05 06/23/20 04:05 06/23/20 04:05 Intake & Output 06/20/20 06/21/20 06/22/20 06/23/20 23:59 23:59 23:59 23:59 Intake Total 360 Balance 360 Weight 120 lb Neck: Supple Negative JVD Respiratory: Clear to auscultation and percussion Cardiovascular: S1 S2 Regular rate rhythm Gastrointestinal: Soft Benign Normal Bowel Sounds Ext: Negative Edema Labs: Troponin, BNP 06/22/20 06/22/20 14:05 20:57 Troponin I < 0.02 0.03 CBC, BMP 06/22/20 14:05 06/22/20 14:05 Hepatic Panel Total Bilirubin 0.2 mg/dL (0.2-1) 06/22/20 14:05 AST 29 U/L (15-37) 06/22/20 14:05 ALT 18 U/L (13-61) 06/22/20 14:05 Alkaline Phosphatase 145 U/L (45-117) H 06/22/20 14:05 Albumin 3.5 g/dl (3.4-5.0) 06/22/20 14:05 Assessment/Plan ASSESSMENT: 1. Clinical presentation is consistent with vasovagal syncope, preceding prodrome with profuse diaphoresis 2. Chest pain syndrome clinical presentation of which is atypical for angina pectoris in a patient with known history of coronary artery disease angina pectoris 3. Diastolic left ventricular dysfunction with class 0 [place] [employer] classification left ventricular failure 4. Hypertensive cardiovascular disease 5. Hypercholesterolemia 6. Aortic atherosclerosis 7. Peripheral vascular disease 8. Celiac sprue 9. Chronic kidney disease with evidence of prerenal azotemia 10. Profound anemia, chronic history PLAN: 1. Continue Toprol-XL therapy and dose titration as needed and as tolerated 2. Continue Norvasc therapy 3. Continue Lipitor therapy 4. Agree with withholding Plavix therapy pending clinical improvement/resolution of the above noted anemia 5. Ideally patient should be on CHAKA inhibitor or angiotensin receptor chiquis therapy unless it is absolutely contraindicated 6. Transfusion to maintain hemoglobin equal or greater than 8.0 7. Echocardiography for evaluation of left ventricular systolic function/valvular function 8. Additional cardiovascular evaluation including myocardial perfusion imaging study is to be deferred pending resolution of the above noted profound anemia, can be performed as an outpatient Milla Mosqueda MD
[2020-06-23] MEDS ORDERED: FUROSEMIDE 40 MG TABLET (FP) PO SCH (10:00)
[2020-06-23 10:22] LABS: BASO % 0.5 % (0-2.0); EOS % 0.1 % (0-4.5); HEMATOCRIT 24.6 % (32.4-45.2); HEMOGLOBIN 8.2 GM/dL (10.7-15.3); LYMPH % 15.3 % (8-40); MCH 27.6 pg (25.7-33.7); MCHC 33.2 g/dl (32.0-36.0); MEAN CELL VOLUME 83.3 fl (80-96); MEAN PLT VOLUME 7.6 fl (7.5-11.1); MONO % 8.7 % (3.8-10.2); NEUT % 75.4 % (42.8-82.8); PLATELET COUNT 244 K/MM3 (134-434); RBC 2.95 M/mm3 (3.60-5.2); RDW 18.3 % (11.6-15.6); WHITE BLOOD COUNT 8.6 K/mm3 (4.0-10.0)
[2020-06-23] MEDS ORDERED: MORPHINE SULFATE 2 MG/ML VIAL IVPUSH STA (10:22)
[2020-06-23] MEDS ORDERED: traMADol HCL 50 MG TABLET PO ONE ×2 (10:23→21:07)
[2020-06-23 10:40] LABS: ALBUMIN 2.9 g/dl (3.4-5.0); BILIRUBIN,TOTAL 0.3 mg/dL (0.2-1); BLOOD UREA NITROGEN 32.2 mg/dL (7-18); CALCIUM 8.2 mg/dL (8.5-10.1); CREATININE 0.7 mg/dL (0.55-1.3); MAGNESIUM 2.4 mg/dL (1.8-2.4); PHOSPHOROUS 2.5 mg/dL (2.5-4.9); POTASSIUM 4.1 mmol/L (3.5-5.1); TOT PROT 5.5 g/dl (6.4-8.2)
[2020-06-23] MEDS: amLODIPine BESYLATE 5 MG TABLET (FP) PO SCH (10:41)
[2020-06-23] MEDS: PANTOPRAZOLE SODIUM 40 MG VIAL IVPUSH SCH ×2 (10:41→21:44)
[2020-06-23] MEDS: FERROUS SO4 325 MG TABLET (FP) PO SCH ×2 (10:41→21:44)
[2020-06-23] MEDS: metoPROLOL SUCCINATE 25 MG TAB.SR.24H (FP) PO SCH (10:43)
--- NOTE | 2020-06-23 11:55 | CONSULT ---
Consult - text type - Consultation Consultation Note: Neurology CHIEF COMPLAINT: syncope PCP: Guero HISTORY OF PRESENT ILLNESS: Patient is a 60 y/o female with a history of celiac disease, migraine, HTN, asthma , anemia, and blood clots with stents in her legs and abdomen. Patient was on the toilet on morning of admission while having a bowel movement when she became dizzy passed out and hit her head. Then later in the day she was standing at the refrigerator and the same thing happened. She states she was on the ground for 20 minutes before coming to. She did not urinate on herself during this time. Patient states this has never happened in the past. She had a normal colonoscopy with Dr. Miranda a few months ago. Denies any blood in her stool. Denies any chest pain. Only symptom is a headache at the right temporal region. Patient had dental work this week where she had 6 teeth extracted. EKG indicated T-wave inversions. Head CT completed with no evideicne of acute infarct. As per GI Dr. Miranda, recommendations of EGD; no objections for EGD from neuro prespective. Patient c.o bakc pain. Thoracic and Lumbar Spine CT ordered, not yet completed. Patient on lipitor 40mg and Aspirin 81mg from home. She reports getting morphine for back pain, consider pain mgmt if needed. Recent Travel: PAST MEDICAL HISTORY: celiac disease, migraine, HTN, asthma , anemia, and blood clots PAST SURGICAL HISTORY: Hysterectomy from cervical cancer at age 35, unclear if ovaries are still there Social History: Smoking: quit 25 years ago, used to smoke 2 packs a day Alcohol: denies Drugs: denies Family History: HTN Allergies aspirin Allergy (Severe, Verified 06/22/20 11:39) Hives lidocaine Allergy (Severe, Verified 06/22/20 11:39) Hives PT. UNSURE OF WHEN, AND WHY, IT WAS LONG TIME AGO Penicillins Allergy (Severe, Verified 06/22/20 11:39) Hives HOME MEDICATIONS: Home Medications Medication Instructions Recorded Metoprolol Succinate [Toprol XL -] 25 mg PO DAILY 10/24/12 Amlodipine Besylate [Norvasc -] 10 mg PO DAILY 08/25/13 Atorvastatin Ca [Lipitor] 40 mg PO HS #30 tablet 01/12/17 Clopidogrel Bisulfate [Clopidogrel] 75 mg PO DAILY 02/18/19 Folic Acid 1 mg PO DAILY 02/18/19 Furosemide 40 mg PO DAILY 02/18/19 Oxycodone HCl/Acetaminophen 1 tab PO Q6H PRN #10 tablet MDD 4 06/06/19 [Percocet 5-325 mg Tablet] Losartan Potassium 50 mg PO DAILY 06/23/19 Aspirin [Ecotrin] 81 mg PO DAILY 06/22/20 Diphenhydramine [Benadryl -] 50 mg PO HS PRN 06/22/20 Ferrous Sulfate 325 mg PO BID 06/22/20 Active Medications Acetaminophen (Tylenol -) 325 mg PO Q6H PRN PRN Reason: PAIN LEVEL 6-10 Last Admin: 06/22/20 20:11 Dose: 325 mg Documented by: Amlodipine Besylate (Norvasc -) 10 mg PO DAILY [facility] Last Admin: 06/23/20 10:41 Dose: 10 mg Documented by: Atorvastatin Calcium (Lipitor -) 40 mg PO HS [facility] Last Admin: 06/22/20 22:38 Dose: 40 mg Documented by: Ferrous Sulfate (Feosol -) 325 mg PO BID [facility] Last Admin: 06/23/20 10:41 Dose: 325 mg Documented by: Sodium Chloride (Normal Saline -) 1,000 mls @ 100 mls/hr IV ASDIR [facility] Last Admin: 06/22/20 17:59 Dose: 100 mls/hr Documented by: Metoprolol Succinate (Toprol Xl -) 25 mg PO DAILY [facility] Last Admin: 06/23/20 10:43 Dose: 25 mg Documented by: Oxycodone HCl (Roxicodone -) 5 mg PO Q6H PRN PRN Reason: PAIN LEVEL 6-10 Last Admin: 06/22/20 20:11 Dose: 5 mg Documented by: Pantoprazole Sodium (Protonix Iv) 40 mg IVPUSH BID [facility] Last Admin: 06/23/20 10:41 Dose: 40 mg Documented by: REVIEW OF SYSTEMS CONSTITUTIONAL: Absent: fever, chills, diaphoresis, generalized weakness, malaise, loss of appetite, weight change HEENT: Absent: rhinorrhea, nasal congestion, throat pain, throat swelling, difficulty swallowing, mouth swelling, ear pain, eye pain, visual changes CARDIOVASCULAR: Absent: chest pain, syncope, palpitations, irregular heart rate, lightheadedness, peripheral edema RESPIRATORY: Absent: cough, shortness of breath, dyspnea with exertion, orthopnea, wheezing, stridor, hemoptysis GASTROINTESTINAL: Absent: abdominal pain, abdominal distension, nausea, vomiting, diarrhea, constipation, melena, hematochezia GENITOURINARY: Absent: dysuria, frequency, urgency, hesitancy, hematuria, flank pain, genital pain MUSCULOSKELETAL: Absent: myalgia, arthralgia, joint swelling, back pain, neck pain SKIN: Absent: rash, itching, pallor HEMATOLOGIC/IMMUNOLOGIC: Absent: easy bleeding, easy bruising, lymphadenopathy, frequent infections ENDOCRINE: Absent: unexplained weight gain, unexplained weight loss, heat intolerance, cold intolerance NEUROLOGIC: headache Absent: focal weakness or paresthesias, dizziness, unsteady gait, seizure, mental status changes, bladder or bowel incontinence PSYCHIATRIC: Absent: anxiety, depression, suicidal or homicidal ideation, hallucinations. PHYSICAL EXAMINATION Vital Signs Period Temp Pulse Resp BP Sys/Miller Pulse Ox Last 24 Hr 97.6 F-98.8 F 80-92 18-20 130-158/51-92 96-100 GENERAL: Awake, alert, and fully oriented, in no acute distress. HEAD: Normal with no signs of trauma. EYES: Pupils equal, round and reactive to light, extraocular movements intact EARS, NOSE, THROAT:Moist mucous membranes. LUNGS: Breath sounds equal, clear to auscultation bilaterally. No wheezes, and no crackles. No accessory muscle use. HEART: Regular rate and rhythm, normal S1 and S2 without murmur, rub or gallop. ABDOMEN: Soft, nontender, not distended, normoactive bowel sounds, no guarding, no rebound, no masses. old surgical scars Rectal exam: no gross blood, no hemorrhoids felt MUSCULOSKELETAL: Normal range of motion at all joints. UPPER EXTREMITIES: 2+ pulses, warm, well-perfused. No cyanosis. No clubbing. No peripheral edema. LOWER EXTREMITIES: No peripheral edema. SKIN: Warm, dry, normal turgor, no rashes or lesions noted, normal capillary refill. CBCD WBC 8.6 K/mm3 (4.0-10.0) 06/23/20 09:38 RBC 2.95 M/mm3 (3.60-5.2) L 06/23/20 09:38 Hgb 8.2 GM/dL (10.7-15.3) L 06/23/20 09:38 Hct 24.6 % (32.4-45.2) L 06/23/20 09:38 MCV 83.3 fl (80-96) 06/23/20 09:38 MCHC 33.2 g/dl (32.0-36.0) 06/23/20 09:38 RDW 18.3 % (11.6-15.6) H 06/23/20 09:38 Plt Count 244 K/MM3 (134-434) D 06/23/20 09:38 MPV 7.6 fl (7.5-11.1) 06/23/20 09:38 CMP Sodium 142 mmol/L (136-145) 06/23/20 09:38 Potassium 4.1 mmol/L (3.5-5.1) 06/23/20 09:38 Chloride 111 mmol/L (98-107) H 06/23/20 09:38 Carbon Dioxide 27 mmol/L (21-32) 06/23/20 09:38 Anion Gap 4 MMOL/L (8-16) L 06/23/20 09:38 BUN 32.2 mg/dL (7-18) H 06/23/20 09:38 Creatinine 0.7 mg/dL (0.55-1.3) 06/23/20 09:38 Random Glucose 99 mg/dL (74-106) 06/23/20 09:38 Calcium 8.2 mg/dL (8.5-10.1) L 06/23/20 09:38 Total Bilirubin 0.3 mg/dL (0.2-1) 06/23/20 09:38 AST 29 U/L (15-37) 06/23/20 09:38 ALT 13 U/L (13-61) 06/23/20 09:38 Alkaline Phosphatase 108 U/L (45-117) 06/23/20 09:38 Total Protein 5.5 g/dl (6.4-8.2) L 06/23/20 09:38 Albumin 2.9 g/dl (3.4-5.0) L 06/23/20 09:38 CARDIAC ENZYMES Creatine Kinase 101 U/L (26-192) 06/22/20 14:05 Troponin I 0.03 ng/ml (0.00-0.05) 06/22/20 20:57 ASSESSMENT/PLAN: Patient is a 60 y/o female with a history of celiac disease, migraine, HTN, asthma , anemia, and blood clots with stents in her legs and abdomen. Patient was on the toilet on morning of admission while having a bowel movement when she became dizzy passed out and hit her head. Then later in the day she was standing at the refrigerator and the same thing happened. She states she was on the ground for 20 minutes before coming to. She did not urinate on herself during this time. Patient states this has never happened in the past. She had a normal colonoscopy with Dr. Miranda a few months ago. Denies any blood in her stool. Denies any chest pain. Only symptom is a headache at the right temporal region. Patient had dental work this week where she had 6 teeth extracted. EKG indicated T-wave inversions. Head CT completed with no evideicne of acute infarct. As per GI Dr. Miranda, recommendations of EGD; no objections for EGD as per neuro. Thoracic and Lumbar Spine CT ordered, not yet completed. Patient on lipitor 40mg and Aspirin 81mg from home. As per GI Dr. Miranda, recommendations of EGD; no objections for EGD from neuro prespective. Patient c.o bakc pain. Thoracic and Lumbar Spine CT ordered, not yet completed. Patient on lipitor 40mg and Aspirin 81mg from home. She reports getting morphine for back pain, consider pain mgmt if needed. Spoke with Dr. Miranda today and informed him of clearance for procedure. Neurologically at baseline with no deficits.
--- NOTE | 2020-06-23 12:04 | EKG ---
Test Reason : Blood Pressure : / mmHG Vent. Rate : 093 BPM Atrial Rate : 093 BPM P-R Int : 136 ms QRS Dur : 080 ms QT Int : 330 ms P-R-T Axes : 060 055 -48 degrees QTc Int : 410 ms NORMAL SINUS RHYTHM NONSPECIFIC ST AND T WAVE ABNORMALITY ABNORMAL ECG Confirmed by AVILA LEWIS MD ([id number]) on 06/23/2020 12:04:17 PM Referred By: Confirmed By:AVILA LEWIS MD
--- NOTE | 2020-06-23 12:07 | PN ---
Progress Note (short form) - Note Progress Note: SUBJECTIVE: Complains of epigastric pain and lower back pain s/p fall. No vomiting/hematemesis OBJECTIVE: Afebrile, hemodynamically stable. Last Vital Signs Temp Pulse Resp BP Pulse Ox 98.8 F 85 18 137/92 96 06/23/20 04:05 06/23/20 04:05 06/23/20 04:05 06/23/20 04:05 06/23/20 04:05 HEENT - Atraumatic, Normocephalic. Heart - S1, S2, RRR Lungs - clear to auscultation Abdomen - epigastric tenderness. Soft. Bowel Sounds normal. Extremities - no edema, no calf tenderness. Laboratory Results - last 24 hr 06/22/20 06/22/20 06/22/20 14:05 14:05 14:05 WBC 11.4 H RBC 2.73 L Hgb 6.9 L* Hct 21.8 L D MCV 80.1 MCH 25.4 L D MCHC 31.7 L RDW 16.8 H Plt Count 412 D MPV 7.3 L Absolute Neuts (auto) 10.4 H Neutrophils % 90.7 H Lymphocytes % 6.2 L D Monocytes % 2.9 L Eosinophils % 0.0 D Basophils % 0.2 Nucleated RBC % 0 ESR 53 H Retic Count 1.78 H Sodium 139 Potassium 4.6 Chloride 106 Carbon Dioxide 23 Anion Gap 10 BUN 50.8 H Creatinine 1.2 Est GFR (CKD-EPI)AfAm 56.89 Est GFR (CKD-EPI)NonAf 49.08 Random Glucose 135 H Calcium 8.9 Phosphorus Magnesium Iron 86 TIBC 378 Iron Saturation 22 Unsaturated IBC 292 H Ferritin 6.1 L Total Bilirubin 0.2 AST 29 ALT 18 Alkaline Phosphatase 145 H Creatine Kinase 101 Troponin I < 0.02 C-Reactive Protein 2.0 H Total Protein 7.0 Albumin 3.5 Vitamin B12 427 Serum Folate 7 COVID-19 (SHAHAB) Blood Type Antibody Screen Crossmatch 06/22/20 06/22/20 06/22/20 16:14 20:05 20:57 WBC RBC Hgb Hct MCV MCH MCHC RDW Plt Count MPV Absolute Neuts (auto) Neutrophils % Lymphocytes % Monocytes % Eosinophils % Basophils % Nucleated RBC % ESR Retic Count Sodium Potassium Chloride Carbon Dioxide Anion Gap BUN Creatinine Est GFR (CKD-EPI)AfAm Est GFR (CKD-EPI)NonAf Random Glucose Calcium Phosphorus Magnesium Iron TIBC Iron Saturation Unsaturated IBC Ferritin Total Bilirubin AST ALT Alkaline Phosphatase Creatine Kinase Troponin I 0.03 C-Reactive Protein Total Protein Albumin Vitamin B12 Serum Folate COVID-19 (SHAHAB) Blood Type Cancelled O POSITIVE Antibody Screen Cancelled Negative Crossmatch See Detail See Detail 06/22/20 06/23/20 06/23/20 Unknown 09:38 09:38 WBC 8.6 RBC 2.95 L Hgb 8.2 L Hct 24.6 L MCV 83.3 MCH 27.6 MCHC 33.2 RDW 18.3 H Plt Count 244 D MPV 7.6 Absolute Neuts (auto) 6.5 Neutrophils % 75.4 Lymphocytes % 15.3 D Monocytes % 8.7 D Eosinophils % 0.1 D Basophils % 0.5 Nucleated RBC % 0 ESR Retic Count Sodium 142 Potassium 4.1 Chloride 111 H Carbon Dioxide 27 Anion Gap 4 L BUN 32.2 H Creatinine 0.7 Est GFR (CKD-EPI)AfAm 109.15 Est GFR (CKD-EPI)NonAf 94.17 Random Glucose 99 Calcium 8.2 L Phosphorus 2.5 Magnesium 2.4 Iron TIBC Iron Saturation Unsaturated IBC Ferritin Total Bilirubin 0.3 AST 29 ALT 13 Alkaline Phosphatase 108 Creatine Kinase Troponin I C-Reactive Protein Total Protein 5.5 L Albumin 2.9 L Vitamin B12 Serum Folate COVID-19 (SHAHAB) Not detected Blood Type Antibody Screen Crossmatch Current Medications Generic Name Dose Route Start Last Admin Trade Name Freq PRN Reason Stop Dose Admin Acetaminophen 325 mg 06/22/20 17:30 06/22/20 20:11 Tylenol - PO 325 mg Q6H PRN Administration PAIN LEVEL 6-10 Amlodipine Besylate 10 mg 06/23/20 10:00 06/23/20 10:41 Norvasc - PO 10 mg DAILY ROSALVA Administration Atorvastatin Calcium 40 mg 06/22/20 22:00 06/22/20 22:38 Lipitor - PO 40 mg HS ROSALVA Administration Ferrous Sulfate 325 mg 06/22/20 22:00 06/23/20 10:41 Feosol - PO 325 mg BID ROSALVA Administration Sodium Chloride 1,000 mls @ 100 mls/hr 06/22/20 17:00 06/22/20 17:59 Normal Saline - IV 100 mls/hr ASDIR ROSALVA Administration Metoprolol Succinate 25 mg 06/23/20 10:00 06/23/20 10:43 Toprol Xl - PO 25 mg DAILY ROSALVA Administration Oxycodone HCl 5 mg 06/22/20 17:30 06/22/20 20:11 Roxicodone - PO 5 mg Q6H PRN Administration PAIN LEVEL 6-10 Pantoprazole Sodium 40 mg 06/22/20 22:00 06/23/20 10:41 Protonix Iv IVPUSH 40 mg BID ROSALVA Administration Home Medications Medication Instructions Recorded Metoprolol Succinate [Toprol XL -] 25 mg PO DAILY 10/24/12 Amlodipine Besylate [Norvasc -] 10 mg PO DAILY 08/25/13 Atorvastatin Ca [Lipitor] 40 mg PO HS #30 tablet 01/12/17 Clopidogrel Bisulfate [Clopidogrel] 75 mg PO DAILY 02/18/19 Folic Acid 1 mg PO DAILY 02/18/19 Furosemide 40 mg PO DAILY 02/18/19 Oxycodone HCl/Acetaminophen 1 tab PO Q6H PRN #10 tablet MDD 4 06/06/19 [Percocet 5-325 mg Tablet] Losartan Potassium 50 mg PO DAILY 06/23/19 Aspirin [Ecotrin] 81 mg PO DAILY 06/22/20 Diphenhydramine [Benadryl -] 50 mg PO HS PRN 06/22/20 Ferrous Sulfate 325 mg PO BID 06/22/20 ASSESSMENT/PLAN: 60 year old female with history of Celiac Disease, Migraine, HTN, Asthma, CAD, PAD s/p PCI/Stent, Chronic Anemia s/p normal recent Colonoscopy, Cervical cancer s/p Hysterectomy, presents after episode of lightheadedness and loss of consciousness x 2 1. Syncope etiology possibly anemia/hypovolemia due to blood loss. CT Head - no acute findings. For transfusion and volume replacement. 2. Acute Blood Loss Anemia sec to likely GI blood loss Hx JIMMY, on ferrous Sulfate supplementation. Ferritin 6.1 BUN elevated H/H 8.2/24.6 up from 6.9/21.8 s/p 2 units PRBCs. Seen by GI - for EGD in AM once 'cleared' by Cardio and Neuro (as per GI) NPO/IV hydration/IV PPI ASA/Plavix held. FOBT pending. 3. CAD s/p Nuclear Stress 01/08 - subtle reversible small apical and inferobasilar defect, mild ischemia for Cardiac clearance prior to EGD as per GI 4. HTN - Continue Norvasc, Metoprolol. Losartan held pending BP monitoring. 5. PAD s/p Stent - ASA/Plavix on hold pending GI Ix. 6. HLD - Continue Atorvastatin 7. Acute on chronic lower back pain s/p fall - will get CT T/L Spine. 8. Pulmonary Nodules - for Pulm referral as out-patient for monitoring. DVT Px - SCDs. Heparin held due to suspicion of acute GI blood loss anemia Visit type - Emergency Visit Emergency Visit: Yes ED Registration Date: 06/22/20 Care time: The patient presented to the Emergency Department on the above date and was hospitalized for further evaluation of their emergent condition. - New Patient This patient is new to me today: Yes Date on this admission: 06/23/20 - Critical Care Critical Care patient: No - Discharge Referral Referred to [facility] Med P.C.: No
--- NOTE | 2020-06-23 13:23 | CONS ---
DATE OF CONSULTATION: DATE OF DICTATION: 06/23/2020 CONSULTATION REQUESTED BY: Hospitalist service. CHIEF COMPLAINT: Syncopal episode, chest discomfort, cardiovascular evaluation. A 60-year-old female, of descent, with known history of coronary artery disease, abnormal myocardial perfusion imaging study, angina pectoris, diastolic left ventricular dysfunction with clinical class 0 [employer] Heart [employer] classification left ventricular failure, hypertensive cardiovascular disease, hypercholesterolemia, aortic atherosclerosis, peripheral vascular disease, celiac sprue with chronic anemia, who presented to [facility] after sustaining a syncopal episode at home. Patient reported initial episode while she was attempting to urinate, reported profuse diaphoresis followed by transient loss of consciousness, to recur again with similar sequence of events. Patient did not report any associated nausea or vomiting. Patient did not report any associated palpitations. Patient reported vague retrosternal chest discomfort that eventually subsided spontaneously. Patient reports dyspnea which has been progressive over the last several days. Patient denies any orthopnea, paroxysmal nocturnal dyspnea, or peripheral edema. Patient has been reporting progressive fatigue and tiredness. Patient noted to have profound anemia in the emergency room and currently is receiving blood transfusion. PAST MEDICAL HISTORY: Coronary artery disease, abnormal myocardial perfusion imaging study, angina pectoris, diastolic left ventricular dysfunction with class 0 Lamb Heart [employer] classification left ventricular failure, hypertensive cardiovascular disease, hypercholesterolemia, aortic atherosclerosis, peripheral vascular disease, migraine headaches, celiac sprue with chronic anemia. SOCIAL HISTORY: Prior history of smoking. FAMILY HISTORY: Positive coronary artery disease. ALLERGIES: To ASPIRIN, LIDOCAINE, and PENICILLIN. MEDICATIONS: Medical therapy currently includes acetaminophen 325 mg every 6 hours as needed, Norvasc 10 mg once a day, Lipitor 40 mg once a day, ferrous sulfate 325 mg twice a day, IV fluid normal saline, Toprol XL 25 mg once a day, oxycodone 5 mg every 6 hours as needed, pantoprazole 40 mg IV push twice a day. REVIEW OF SYSTEMS: Head and Neck: Reports headache. Denies photophobia or blurring of vision. Respiratory: No cough or sputum production. Cardiovascular: As noted above. Gastrointestinal: No nausea, vomiting, diarrhea, or abdominal discomfort. Genitourinary: No symptoms reported. Musculoskeletal: No symptoms reported. PHYSICAL EXAMINATION: Vital Signs: Pulse rate is 85 beats per minute. Temperature 98.8 degrees Fahrenheit. Blood pressure 137/92 mmHg. Head and Neck: Pupils equal, react to light and accommodation. Extraocular muscles are intact. Anicteric sclerae. Negative JVD. No bruit appreciated. Chest: Clear to auscultation and percussion. Cardiovascular: S1, S2 regular. Grade 1 to 2/6 systolic ejection murmur. No clicks or gallops. Abdomen: Soft, benign. Normoactive bowel sound. Extremities: Negative edema. 1+ distal pulses. No calf tenderness. Electrocardiogram reveals sinus rhythm with ST and T-wave abnormality. CBC revealed white cell count of 11.4, hemoglobin 6.9, platelets 412. Basic metabolic profile revealed sodium 139, potassium 4.6, BUN 50.8, creatinine 1.2, glucose 135. ASSESSMENT: 1. Clinical presentation is consistent with vasovagal syncope preceding prodrome/profuse diaphoresis. 2. Chest pain syndrome, clinical presentation of which is atypical for angina pectoris in a patient with known history of coronary artery disease and angina pectoris. 3. Diastolic left ventricular dysfunction with clinical class 0 Lamb Heart [employer] classification left ventricular failure. 4. Hypertensive cardiovascular disease. 5. Hypercholesterolemia. 6. Aortic atherosclerosis. 7. Peripheral vascular disease. 8. Celiac sprue. 9. Chronic kidney disease with evidence of prerenal azotemia. 10. Profound anemia, chronic history. PLAN: 1. Continue Toprol XL therapy and dose titration as needed and as tolerated. 2. Continue Norvasc therapy. 3. Continue Lipitor therapy. 4. Agree with withholding Plavix therapy pending clinical improvement/resolution of the above-noted anemia. 5. Ideally patient should be on CHAKA inhibitor or angiotensin receptor chiquis therapy unless it is absolutely contraindicated. 6. Transfusions to maintain hemoglobin equal or greater than 8.0. 7. Echocardiography for evaluation of left ventricular systolic function/valvular function. 8. Additional cardiovascular evaluation will be recommended eventually, including myocardial perfusion imaging study but to be deferred pending resolution of the above-noted anemia, can be performed on outpatient basis. Thank you for your kind referral. BARRON NEWTON M.D. [id number]
[2020-06-23] MEDS: oxyCODONE HCL 5 MG TABLET PO PRN (15:56)
[2020-06-23] MEDS: ACETAMINOPHEN 325 MG TABLET (FP) PO PRN (15:57)
[2020-06-23] MEDS ORDERED: diphenhydrAMINE HCL 25 MG CAPSULE (FP) PO ONE (16:51)
[2020-06-23] MEDS: SODIUM CHLORIDE 1,000 ML IV SCH (18:37)
[2020-06-23] MEDS: ATORVASTATIN CA 40 MG TABLET (FP) PO SCH (21:44)
[2020-06-23] MEDS: MELATONIN 5 MG TABLETS PO PRN (21:45)
[2020-06-23] MEDS ORDERED: ALBUTEROL SO4 HFA INHALER IH ONE (21:49)
[2020-06-24] MEDS: oxyCODONE HCL 5 MG TABLET PO PRN (06:39)
[2020-06-24] MEDS: ACETAMINOPHEN 325 MG TABLET (FP) PO PRN ×2 (06:39→17:39)
--- NOTE | 2020-06-24 08:32 | PN ---
Progress Note (short form) - Note Progress Note: Neurology CHIEF COMPLAINT: syncope PCP: Guero HISTORY OF PRESENT ILLNESS: Patient is a 60 y/o female with a history of celiac disease, migraine, HTN, asthma , anemia, and blood clots with stents in her legs and abdomen. Patient was on the toilet on morning of admission while having a bowel movement when she became dizzy passed out and hit her head. Then later in the day she was standing at the refrigerator and the same thing happened. She states she was on the ground for 20 minutes before coming to. She did not urinate on herself during this time. Patient states this has never happened in the past. She had a normal colonoscopy with Dr. Miranda a few months ago. Denies any blood in her stool. Denies any chest pain. Only symptom is a headache at the right temporal region. Patient had dental work this week where she had 6 teeth extracted. EKG indicated T-wave inversions. Head CT completed with no evideicne of acute infarct. Patient on lipitor 40mg and Aspirin 81mg from home. As per GI Dr. Miranda, recommendations of EGD; no objections for EGD from neuro prespective. Patient c.o bakc pain. Thoracic and Lumbar Spine CT ordered and showed no acute changes, no significant degenerative changes, and no paraspinal masses identified. Active Medications Acetaminophen (Tylenol -) 325 mg PO Q6H PRN PRN Reason: PAIN LEVEL 6-10 Last Admin: 06/24/20 06:39 Dose: 325 mg Documented by: Amlodipine Besylate (Norvasc -) 10 mg PO DAILY [facility] Last Admin: 06/23/20 10:41 Dose: 10 mg Documented by: Atorvastatin Calcium (Lipitor -) 40 mg PO HS [facility] Last Admin: 06/23/20 21:44 Dose: 40 mg Documented by: Ferrous Sulfate (Feosol -) 325 mg PO BID [facility] Last Admin: 06/23/20 21:44 Dose: 325 mg Documented by: Sodium Chloride (Normal Saline -) 1,000 mls @ 100 mls/hr IV ASDIR [facility] Last Admin: 06/23/20 18:37 Dose: 100 mls/hr Documented by: Melatonin (Melatonin) 5 mg PO HS PRN PRN Reason: INSOMNIA Last Admin: 06/23/20 21:45 Dose: 5 mg Documented by: Metoprolol Succinate (Toprol Xl -) 25 mg PO DAILY [facility] Last Admin: 06/23/20 10:43 Dose: 25 mg Documented by: Pantoprazole Sodium (Protonix Iv) 40 mg IVPUSH BID [facility] Last Admin: 06/23/20 21:44 Dose: 40 mg Documented by: PHYSICAL EXAMINATION Vital Signs Period Temp Pulse Resp BP Sys/Miller Pulse Ox Last 24 Hr 98.1 F-98.7 F 59-72 18-20 123-152/59-80 63-97 GENERAL: Awake, alert, and fully oriented, in no acute distress. HEAD: Normal with no signs of trauma. EYES: Pupils equal, round and reactive to light, extraocular movements intact EARS, NOSE, THROAT:Moist mucous membranes. LUNGS: Breath sounds equal, clear to auscultation bilaterally. No wheezes, and no crackles. No accessory muscle use. HEART: Regular rate and rhythm, normal S1 and S2 without murmur, rub or gallop. ABDOMEN: Soft, nontender, not distended, normoactive bowel sounds, no guarding, no rebound, no masses. old surgical scars Rectal exam: no gross blood, no hemorrhoids felt MUSCULOSKELETAL: Normal range of motion at all joints. UPPER EXTREMITIES: 2+ pulses, warm, well-perfused. No cyanosis. No clubbing. No peripheral edema. LOWER EXTREMITIES: No peripheral edema. SKIN: Warm, dry, normal turgor, no rashes or lesions noted, normal capillary refill. CBCD WBC 8.6 K/mm3 (4.0-10.0) 06/23/20 09:38 RBC 2.95 M/mm3 (3.60-5.2) L 06/23/20 09:38 Hgb 8.2 GM/dL (10.7-15.3) L 06/23/20 09:38 Hct 24.6 % (32.4-45.2) L 06/23/20 09:38 MCV 83.3 fl (80-96) 06/23/20 09:38 MCHC 33.2 g/dl (32.0-36.0) 06/23/20 09:38 RDW 18.3 % (11.6-15.6) H 06/23/20 09:38 Plt Count 244 K/MM3 (134-434) D 06/23/20 09:38 MPV 7.6 fl (7.5-11.1) 06/23/20 09:38 CMP Sodium 142 mmol/L (136-145) 06/23/20 09:38 Potassium 4.1 mmol/L (3.5-5.1) 06/23/20 09:38 Chloride 111 mmol/L (98-107) H 06/23/20 09:38 Carbon Dioxide 27 mmol/L (21-32) 06/23/20 09:38 Anion Gap 4 MMOL/L (8-16) L 06/23/20 09:38 BUN 32.2 mg/dL (7-18) H 06/23/20 09:38 Creatinine 0.7 mg/dL (0.55-1.3) 06/23/20 09:38 Random Glucose 99 mg/dL (74-106) 06/23/20 09:38 Calcium 8.2 mg/dL (8.5-10.1) L 06/23/20 09:38 Total Bilirubin 0.3 mg/dL (0.2-1) 06/23/20 09:38 AST 29 U/L (15-37) 06/23/20 09:38 ALT 13 U/L (13-61) 06/23/20 09:38 Alkaline Phosphatase 108 U/L (45-117) 06/23/20 09:38 Total Protein 5.5 g/dl (6.4-8.2) L 06/23/20 09:38 Albumin 2.9 g/dl (3.4-5.0) L 06/23/20 09:38 CARDIAC ENZYMES Creatine Kinase 101 U/L (26-192) 06/22/20 14:05 Troponin I 0.03 ng/ml (0.00-0.05) 06/22/20 20:57 ASSESSMENT/PLAN: Patient is a 60 y/o female with a history of celiac disease, migraine, HTN, asthma , anemia, and blood clots with stents in her legs and abdomen. Patient was on the toilet on morning of admission while having a bowel movement when she became dizzy passed out and hit her head. Then later in the day she was standing at the refrigerator and the same thing happened. She states she was on the ground for 20 minutes before coming to. She did not urinate on herself during this time. Patient states this has never happened in the past. She had a normal colonoscopy with Dr. Miranda a few months ago. Denies any blood in her stool. Denies any chest pain. Only symptom is a headache at the right temporal region. Patient had dental work this week where she had 6 teeth extracted. EKG indicated T-wave inversions. Head CT completed with no evideicne of acute infarct. As per GI Dr. Miranda, recommendations of EGD; no objections for EGD from neuro prespective. Patient c.o bakc pain. Thoracic and Lumbar Spine CT ordered and showed no acute changes, no significant degenerative changes, and no paraspinal masses identified. Patient on lipitor 40mg and Aspirin 81mg from home. She reports getting morphine for back pain, consider pain mgmt if needed. Spoke with Dr. Miranda peviously and informed him of clearance for procedure. Neurologically at baseline with no deficits.
[2020-06-24] MEDS: FERROUS SO4 325 MG TABLET (FP) PO SCH ×2 (09:52→21:47)
[2020-06-24] MEDS: amLODIPine BESYLATE 5 MG TABLET (FP) PO SCH (09:52)
[2020-06-24] MEDS: PANTOPRAZOLE SODIUM 40 MG VIAL IVPUSH SCH ×2 (09:53→21:48)
[2020-06-24] MEDS: SODIUM CHLORIDE 1,000 ML IV SCH ×3 (11:01→21:49)
[2020-06-24] MEDS ORDERED: traMADol HCL 50 MG TABLET PO ONE (11:30)
--- NOTE | 2020-06-24 12:23 | PN ---
Teaching Attending Note Name of Resident: Jeff Gutierrez ATTENDING PHYSICIAN STATEMENT I saw and evaluated the patient. I reviewed the resident's note and discussed the case with the resident. I agree with the resident's findings and plan as documented. SUBJECTIVE: Some mild epigastric pain and lower back pain s/p fall. No vomiting/hematemesis OBJECTIVE: Afebrile, hemodynamically stable. Last Vital Signs Temp Pulse Resp BP Pulse Ox 98.2 F 51 L 19 129/57 L 99 06/24/20 09:51 06/24/20 09:51 06/24/20 09:51 06/24/20 09:51 06/24/20 09:51 Heart - S1, S2, RRR Lungs - clear to auscultation Abdomen - mild epigastric tenderness. Soft. Bowel Sounds normal. Extremities - no edema, no calf tenderness. Neuro - AAO x 3. tone/Power normal all extremities. Current Medications Generic Name Dose Route Start Last Admin Trade Name Freq PRN Reason Stop Dose Admin Acetaminophen 325 mg 06/22/20 17:30 06/24/20 06:39 Tylenol - PO 325 mg Q6H PRN Administration PAIN LEVEL 6-10 Amlodipine Besylate 10 mg 06/23/20 10:00 06/24/20 09:52 Norvasc - PO 10 mg DAILY [facility] Administration Atorvastatin Calcium 40 mg 06/22/20 22:00 06/23/20 21:44 Lipitor - PO 40 mg HS [facility] Administration Ferrous Sulfate 325 mg 06/22/20 22:00 06/24/20 09:52 Feosol - PO 325 mg BID [facility] Administration Sodium Chloride 1,000 mls @ 100 mls/hr 06/22/20 17:00 06/24/20 11:01 Normal Saline - IV 100 mls/hr ASDIR [facility] Administration Melatonin 5 mg 06/23/20 22:00 06/23/20 21:45 Melatonin PO 5 mg HS PRN Administration INSOMNIA Metoprolol Succinate 25 mg 06/23/20 10:00 06/23/20 10:43 Toprol Xl - PO 25 mg DAILY [facility] Administration Pantoprazole Sodium 40 mg 06/22/20 22:00 06/24/20 09:53 Protonix Iv IVPUSH 40 mg BID [facility] Administration Home Medications Medication Instructions Recorded Metoprolol Succinate [Toprol XL -] 25 mg PO DAILY 12/31/12 Amlodipine Besylate [Norvasc -] 10 mg PO DAILY 08/25/13 Atorvastatin Ca [Lipitor] 40 mg PO HS #30 tablet 01/12/17 Clopidogrel Bisulfate [Clopidogrel] 75 mg PO DAILY 02/18/19 Folic Acid 1 mg PO DAILY 02/18/19 Furosemide 40 mg PO DAILY 02/18/19 Oxycodone HCl/Acetaminophen 1 tab PO Q6H PRN #10 tablet MDD 4 06/06/19 [Percocet 5-325 mg Tablet] Losartan Potassium 50 mg PO DAILY 06/23/19 Aspirin [Ecotrin] 81 mg PO DAILY 06/22/20 Diphenhydramine [Benadryl -] 50 mg PO HS PRN 06/22/20 Ferrous Sulfate 325 mg PO BID 06/22/20 Pantoprazole Sodium [Protonix] 40 mg PO DAILY #15 tab 06/24/20 ASSESSMENT/PLAN: 60 year old female with history of Celiac Disease, Migraine, HTN, Asthma, CAD, PAD s/p PCI/Stent, Chronic Anemia s/p normal recent Colonoscopy, Cervical cancer s/p Hysterectomy, presents after episode of lightheadedness and loss of consciousness x 2 1. Syncope, etiology possibly anemia/hypovolemia due to blood loss. CT Head - no acute findings. s/p 2 units PRBCs Repeat H/H pending. No lightheadedness/dizziness. 2. Acute Blood Loss Anemia sec to likely GI blood loss Hx JIMMY, on ferrous Sulfate supplementation. Ferritin 6.1 BUN elevated H/H 8.2/24.6 up from 6.9/21.8 s/p 2 units PRBCs - today's CBC pending. Seen by Cardio/Neuro and cleared for EGD As per GI, EGD can be done as out-patient. Tolerating diet. ASA/Plavix held pending EGD. 3. CAD s/p Nuclear Stress 01/08 - subtle reversible small apical and inferobasilar defect, mild ischemia fCleared by Cardio for EGD Cardio follow up on discharge for Monitoring and further Ix including Echo and myocardial perfusion. 4. HTN - Continue Norvasc, Metoprolol. Losartan to be resumed. 5. PAD s/p Stent - ASA/Plavix on hold pending GI Ix. 6. HLD - Continue Atorvastatin 7. Acute on chronic lower back pain s/p fall - CT T/L Spine shows no acute findings. 8. Pulmonary Nodules - for Pulm referral as out-patient for monitoring. DVT Px - SCDs. Heparin held due to suspicion of acute GI blood loss anemia Medically stable for discharge once labwork is back and clear plan by GI for further Ix.
--- NOTE | 2020-06-24 12:33 | PN ---
Progress Note, Physician - Current Medication List Current Medications: Active Medications Acetaminophen (Tylenol -) 325 mg PO Q6H PRN PRN Reason: PAIN LEVEL 6-10 Last Admin: 06/24/20 06:39 Dose: 325 mg Documented by: Amlodipine Besylate (Norvasc -) 10 mg PO DAILY [facility] Last Admin: 06/24/20 09:52 Dose: 10 mg Documented by: Atorvastatin Calcium (Lipitor -) 40 mg PO HS [facility] Last Admin: 06/23/20 21:44 Dose: 40 mg Documented by: Ferrous Sulfate (Feosol -) 325 mg PO BID [facility] Last Admin: 06/24/20 09:52 Dose: 325 mg Documented by: Sodium Chloride (Normal Saline -) 1,000 mls @ 100 mls/hr IV ASDIR [facility] Last Admin: 06/24/20 11:01 Dose: 100 mls/hr Documented by: Melatonin (Melatonin) 5 mg PO HS PRN PRN Reason: INSOMNIA Last Admin: 06/23/20 21:45 Dose: 5 mg Documented by: Metoprolol Succinate (Toprol Xl -) 25 mg PO DAILY [facility] Last Admin: 06/23/20 10:43 Dose: 25 mg Documented by: Pantoprazole Sodium (Protonix Iv) 40 mg IVPUSH BID [facility] Last Admin: 06/24/20 09:53 Dose: 40 mg Documented by: - Objective Vital Signs: Vital Signs Temperature 98.2 F 06/24/20 09:51 Pulse Rate 51 L 06/24/20 09:51 Respiratory Rate 19 06/24/20 09:51 Blood Pressure 129/57 L 06/24/20 09:51 O2 Sat by Pulse Oximetry (%) 99 06/24/20 09:51 Eyes: Yes: WNL, Conjunctiva Clear, EOM Intact HENT: Yes: WNL, Atraumatic, Normocephalic Neck: Yes: WNL, Supple, Trachea Midline Cardiovascular: Yes: WNL, Regular Rate and Rhythm Respiratory: Yes: WNL, Regular, CTA Bilaterally Gastrointestinal: Yes: WNL, Normal Bowel Sounds Genitourinary: Yes: WNL Musculoskeletal: Yes: WNL Extremities: Yes: WNL Edema: No Integumentary: Yes: WNL Neurological: Yes: WNL, Alert, Oriented ...Motor Strength: WNL Psychiatric: Yes: WNL Labs: CBC, BMP 06/23/20 09:38 06/23/20 09:38 Problem List - Problems (1) Acute electrocardiogram changes Code(s): R94.31 - ABNORMAL ELECTROCARDIOGRAM [ECG] [EKG] (2) Anemia Code(s): D64.9 - ANEMIA, UNSPECIFIED Qualifiers: Anemia type: unspecified type Qualified Code(s): D64.9 - Anemia, unspecified (3) Chest pain Code(s): R07.9 - CHEST PAIN, UNSPECIFIED Qualifiers: Chest pain type: unspecified Qualified Code(s): R07.9 - Chest pain, unspecified (4) Syncope Code(s): R55 - SYNCOPE AND COLLAPSE (5) Syncope and collapse Code(s): R55 - SYNCOPE AND COLLAPSE (6) T wave inversion in EKG Code(s): R94.31 - ABNORMAL ELECTROCARDIOGRAM [ECG] [EKG] (7) Abdominal pain Code(s): R10.9 - UNSPECIFIED ABDOMINAL PAIN Qualifiers: Abdominal location: generalized Qualified Code(s): R10.84 - Generalized abdominal pain (8) Abdominal pain, vomiting, and diarrhea Code(s): R10.9 - UNSPECIFIED ABDOMINAL PAIN; R11.10 - VOMITING, UNSPECIFIED; R19.7 - DIARRHEA, UNSPECIFIED (9) Back pain Code(s): M54.9 - DORSALGIA, UNSPECIFIED Qualifiers: Back pain location: low back pain Chronicity: acute Back pain laterality: right Sciatica presence: with sciatica Sciatica laterality: sciatica of right side Qualified Code(s): M54.41 - Lumbago with sciatica, right side (10) Breast pain Code(s): N64.4 - MASTODYNIA (11) Diarrhea Code(s): R19.7 - DIARRHEA, UNSPECIFIED Qualifiers: Diarrhea type: unspecified type Qualified Code(s): R19.7 - Diarrhea, unspecified (12) Eloped from emergency department Code(s): Z53.21 - PROC/TRTMT NOT CRD OUT D/T PT LV BEF SEEN BY [facility] (13) Head injury Code(s): S09.90XA - UNSPECIFIED INJURY OF HEAD, INITIAL ENCOUNTER Qualifiers: Encounter type: initial encounter Qualified Code(s): S09.90XA - Unspecified injury of head, initial encounter (14) Headache Code(s): R51 - HEADACHE (15) Laceration of head Code(s): S01.91XA - LACERATION W/O FOREIGN BODY OF UNSP PART OF HEAD, INIT Qualifiers: Encounter type: initial encounter Location of open wound of head: other part of head Foreign body presence: without foreign body Qualified Code(s): S01.81XA - Laceration without foreign body of other part of head, initial encounter (16) Migraine headache Code(s): G43.909 - MIGRAINE, UNSP, NOT INTRACTABLE, WITHOUT STATUS MIGRAINOSUS Qualifiers: Migraine type: unspecified Status migrainosus presence: without status migrainosus Intractability: not intractable Qualified Code(s): G43.909 - Migraine, unspecified, not intractable, without status migrainosus (17) Pain of right lower extremity Code(s): M79.604 - PAIN IN RIGHT LEG (18) Petechial rash Code(s): R23.3 - SPONTANEOUS ECCHYMOSES (19) Rib contusion Code(s): S20.219A - CONTUSION OF UNSPECIFIED FRONT WALL OF THORAX, INIT ENCNTR Qualifiers: Encounter type: initial encounter Laterality: right Qualified Code(s): S20.211A - Contusion of right front wall of thorax, initial encounter (20) Right elbow pain Code(s): M25.521 - PAIN IN RIGHT ELBOW (21) UTI (urinary tract infection) Code(s): N39.0 - URINARY TRACT INFECTION, SITE NOT SPECIFIED Qualifiers: Urinary tract infection type: site unspecified Hematuria presence: without hematuria Qualified Code(s): N39.0 - Urinary tract infection, site not specified (22) Visit for suture removal Code(s): Z48.02 - ENCOUNTER FOR REMOVAL OF SUTURES Assessment/Plan Imp; Syncope PAD Anemia Bradycardia Multiple syncopies with face injury New EKG changes since 2019 - c/w ischemia Nonobstructive cors 2018 C ,cath February 2019 [facility] nonobstructive CAD 30-40% 3 VD , 50% m LCX Plan; Correct Anemia - PRBC transfusions ECHO MIBI stress test d/w Nurse Sukhdev
--- NOTE | 2020-06-24 13:28 | PN ---
Progress Note (short form) - Note Progress Note: patient cleared for EGD this morning. EGD may be done as an outpatient. Please send patient to hte office upon discharge. Problem List - Problems (1) Anemia Code(s): D64.9 - ANEMIA, UNSPECIFIED Qualifiers: Anemia type: unspecified type Qualified Code(s): D64.9 - Anemia, unspecified (2) Syncope Code(s): R55 - SYNCOPE AND COLLAPSE
[2020-06-24 13:55] LABS: BASO % 0.6 % (0-2.0); EOS % 1.2 % (0-4.5); HEMATOCRIT 25.5 % (32.4-45.2); HEMOGLOBIN 8.5 GM/dL (10.7-15.3); LYMPH % 17.3 % (8-40); MCH 27.7 pg (25.7-33.7); MCHC 33.4 g/dl (32.0-36.0); MEAN PLT VOLUME 7.5 fl (7.5-11.1); MONO % 8.9 % (3.8-10.2); PLATELET COUNT 258 K/MM3 (134-434); RBC 3.08 M/mm3 (3.60-5.2); RDW 17.1 % (11.6-15.6)
--- NOTE | 2020-06-24 14:06 | DS ---
Physical Exam: SUBJECTIVE: Patient seen and examined at bedside, reports mild epigastric and lower back pain. No acute events overnight. Denies any fever, chills, nausea, vomiting, diarrhea, constipation. OBJECTIVE: Vital Signs Period Temp Pulse Resp BP Sys/Miller Pulse Ox Last 24 Hr 98.2 F-98.7 F 51-68 18-20 123-146/57-71 63-99 PHYSICAL EXAM GENERAL: Awake, alert, and fully oriented, in no acute distress. HEAD: Normal with no signs of trauma. EYES: Pupils equal, round and reactive to light, extraocular movements intact EARS, NOSE, THROAT:Moist mucous membranes. LUNGS: Breath sounds equal, clear to auscultation bilaterally. No wheezes, and no crackles. No accessory muscle use. HEART: Regular rate and rhythm, normal S1 and S2 without murmur, rub or gallop. ABDOMEN: Soft, nontender, not distended, normoactive bowel sounds, no guarding, no rebound, no masses. old surgical scars MUSCULOSKELETAL: Normal range of motion at all joints. UPPER EXTREMITIES: 2+ pulses, warm, well-perfused. No cyanosis. No clubbing. No peripheral edema. LOWER EXTREMITIES: No peripheral edema. SKIN: Warm, dry, normal turgor, no rashes or lesions noted, normal capillary refill. LABS Laboratory Results - last 24 hr 06/24/20 13:05 WBC 7.0 RBC 3.08 L Hgb 8.5 L Hct 25.5 L MCV 83.0 MCH 27.7 MCHC 33.4 RDW 17.1 H Plt Count 258 MPV 7.5 Absolute Neuts (auto) 5.1 Neutrophils % 72.0 Lymphocytes % 17.3 Monocytes % 8.9 Eosinophils % 1.2 D Basophils % 0.6 Nucleated RBC % 0 HOSPITAL COURSE: Date of Admission:06/22/20 60 year old female with history of Celiac Disease, Migraine, HTN, Asthma, CAD, PAD s/p PCI/Stent, Chronic Anemia s/p normal recent Colonoscopy, Cervical cancer s/p Hysterectomy, presents after episode of lightheadedness and loss of consciousness, admitted for Syncope, etiology possibly anemia/hypovolemia due to blood loss. Acute Blood Loss Anemia sec to likely GI blood loss. H/H initially was 6.9/21.8, improved to 8.2/24.6 with 2 units PRBCs. Also treated with ferrous Sulfate supplementation, Ferritin 6.1. CT Head - no acute findings. CT T/L Spine shows no acute findings. Seen by Cardio/Neuro and cleared for EGD. As per GI, EGD can be done as out- patient, Scheduled for tomorrow morning EGD with Dr. Han mcclure. Patient had a Nuclear Stress 01/08 - subtle reversible small apical and inferobasilar defect, mild ischemiaCardio evaluated her and recommended, follow up on discharge for Monitoring and further investigations with Echo and myocardial perfusion. Pulmonary Nodules were noted on imaging. Provided the patient with Pulm referral as out-patient for monitoring At this time, patient reports no lightheadedness/dizziness, is Tolerating diet, and clinically stable for discharge Patient was advised not to take ASA/Plavix, to remain NPO until outpatient EGD tomorrow morning, and to resume all other home medications as prescribed Date of Discharge: 06/24/20 Minutes to complete discharge: 36 Discharge Summary Problems reviewed: Yes Reason For Visit: ANEMIA / SYNCOPE AND COLLAPSE Current Active Problems Acute electrocardiogram changes (Acute) Anemia (Acute) Chest pain (Acute) Syncope (Acute) Syncope and collapse (Acute) T wave inversion in EKG (Acute) Condition: Stable - Instructions Diet, Activity, Other Instructions: YOUR VISIT: You were admitted to the hospital after an episode of lightheadedness and loss of consciousness. You were evaluated with Labs, CT Head, CXR, Ribs XR, Lumbar spine CT, and Thoracic Spin CT. Imaging did not reveal any acute bleeding in your head or any damages to you bones in your spine, ribs and chest. Your labs showed that you had low red blood cells, which possibly caused you to feel lightheadedness and resulted in Loss of consciousness. Labs showed that you had low red blood cell count, we gave you 2 units of packed red blood cells. Labs also showed that you had low Iron in your blood, we treated you with iron supplements. You were evaluated by GI for possible blood loss from your stomach/gut. Dr Miranda recommended out patient EGD procedure for tomorrow morning at his office (06/25/20). MEDICATIONS: Please START taking Protonix daily Continue to take all other home medications as prescribed DO NOT take aspirin and Plavix until you folow up with the [facility] as an outpatient due to your low blood counts FOLLOW [employer]: Please follow up with Santos Petersen, GI doctor, tomorrow on 06/25/20, for an Endoscopy (EGD) evaluation. Please visit your primary care provider, Dr Wiley within 1-2 weeks to follow up with your lab work and hospital visit. Please follow up with the [facility] Dr Brush within one week to discuss resuming your aspirin and plavix Please follow up with the senior account representative, Dr Watts as your had lung nodules found on your CT scan ADDITIONAL INSTRUCTIONS: You are being discharged to your home. Please return to the Emergency department if you are experiencing worsening or concerning symptoms. Referrals: Kal Watts MD [Staff Physician] - Matthew Wiley MD [Primary Care Provider] - 1 Week Santos Miranda MD [Staff Physician] - 06/25/20 Carmelo Brush MD [Staff Physician] - Disposition: HOME - Home Medications Comprehensive Discharge Medication List: Ambulatory Orders Metoprolol Succinate [Toprol XL -] 25 mg PO DAILY 10/24/12 Amlodipine Besylate [Norvasc -] 10 mg PO DAILY 08/25/13 Atorvastatin Ca [Lipitor] 40 mg PO HS #30 tablet 01/12/17 Folic Acid 1 mg PO DAILY 02/18/19 Furosemide 40 mg PO DAILY 02/18/19 Oxycodone HCl/Acetaminophen [Percocet 5-325 mg Tablet] 1 tab PO Q6H PRN #10 tablet MDD 4 06/06/19 Losartan Potassium 50 mg PO DAILY 06/23/19 Diphenhydramine [Benadryl Capsule -] 50 mg PO HS PRN 06/22/20 Ferrous Sulfate 325 mg PO BID 06/22/20 Pantoprazole Sodium [Protonix] 40 mg PO DAILY #15 tab 06/24/20 - Discharge Referral Referred to [facility] No ATTENDING PHYSICIAN STATEMENT I saw and evaluated the patient. I reviewed the resident's note and discussed the case with the resident. I agree with the resident's findings and plan as documented. SUBJECTIVE: OBJECTIVE: ASSESSMENT AND PLAN:
[2020-06-24 14:33] LABS: BLOOD UREA NITROGEN 12.6 mg/dL (7-18); CALCIUM 8.1 mg/dL (8.5-10.1); CREATININE 0.7 mg/dL (0.55-1.3); POTASSIUM 3.9 mmol/L (3.5-5.1)
[2020-06-24] MEDS: metoPROLOL SUCCINATE 25 MG TAB.SR.24H (FP) PO SCH (15:20)
--- NOTE | 2020-06-24 15:46 | PN ---
Physical Exam: SUBJECTIVE: Patient seen and examined at bedside, reports mild epigastric and lower back pain. No acute events overnight. Denies any fever, chills, nausea, vomiting, diarrhea, constipation. OBJECTIVE: Vital Signs Period Temp Pulse Resp BP Sys/Miller Pulse Ox Last 24 Hr 97.8 F-98.7 F 51-68 18-20 123-147/57-80 63-99 GENERAL: Awake, alert, and fully oriented, in no acute distress. HEAD: Normal with no signs of trauma. EYES: Pupils equal, round and reactive to light, extraocular movements intact EARS, NOSE, THROAT:Moist mucous membranes. LUNGS: Breath sounds equal, clear to auscultation bilaterally. No wheezes, and no crackles. No accessory muscle use. HEART: Regular rate and rhythm, normal S1 and S2 without murmur, rub or gallop. ABDOMEN: Soft, nontender, not distended, normoactive bowel sounds, no guarding, no rebound, no masses. old surgical scars Rectal exam: no gross blood, no hemorrhoids felt MUSCULOSKELETAL: Normal range of motion at all joints. UPPER EXTREMITIES: 2+ pulses, warm, well-perfused. No cyanosis. No clubbing. No peripheral edema. LOWER EXTREMITIES: No peripheral edema. SKIN: Warm, dry, normal turgor, no rashes or lesions noted, normal capillary refill. Laboratory Results - last 24 hr 06/24/20 06/24/20 13:05 13:05 WBC 7.0 RBC 3.08 L Hgb 8.5 L Hct 25.5 L MCV 83.0 MCH 27.7 MCHC 33.4 RDW 17.1 H Plt Count 258 MPV 7.5 Absolute Neuts (auto) 5.1 Neutrophils % 72.0 Lymphocytes % 17.3 Monocytes % 8.9 Eosinophils % 1.2 D Basophils % 0.6 Nucleated RBC % 0 Sodium 140 Potassium 3.9 Chloride 107 Carbon Dioxide 27 Anion Gap 6 L BUN 12.6 Creatinine 0.7 Est GFR (CKD-EPI)AfAm 109.15 Est GFR (CKD-EPI)NonAf 94.17 Random Glucose 133 H Calcium 8.1 L Active Medications Generic Name Dose Route Start Last Admin Trade Name Freq PRN Reason Stop Dose Admin Acetaminophen 325 mg 06/22/20 17:30 06/24/20 06:39 Tylenol - PO 325 mg Q6H PRN Administration PAIN LEVEL 6-10 Amlodipine Besylate 10 mg 06/23/20 10:00 06/24/20 09:52 Norvasc - PO 10 mg DAILY ROSALVA Administration Atorvastatin Calcium 40 mg 06/22/20 22:00 06/23/20 21:44 Lipitor - PO 40 mg HS ROSALVA Administration Ferrous Sulfate 325 mg 06/22/20 22:00 06/24/20 09:52 Feosol - PO 325 mg BID ROSALVA Administration Sodium Chloride 1,000 mls @ 100 mls/hr 06/22/20 17:00 06/24/20 11:01 Normal Saline - IV 100 mls/hr ASDIR ROSALVA Administration Melatonin 5 mg 06/23/20 22:00 06/23/20 21:45 Melatonin PO 5 mg HS PRN Administration INSOMNIA Metoprolol Succinate 25 mg 06/23/20 10:00 06/24/20 15:20 Toprol Xl - PO Not Given DAILY ROSALVA Pantoprazole Sodium 40 mg 06/22/20 22:00 06/24/20 09:53 Protonix Iv IVPUSH 40 mg BID ROSALVA Administration ASSESSMENT/PLAN: 60 year old female with history of Celiac Disease, Migraine, HTN, Asthma, CAD, PAD s/p PCI/Stent, Chronic Anemia s/p normal recent Colonoscopy, Cervical cancer s/p Hysterectomy, presents after episode of lightheadedness and loss of consciousness, admitted for Syncope 2/2 acute blood loss anemia. #Syncope - likely 2/2 to anemia, hypovolemia induced - Head CT: No acute pathology - fall risk precautions #Acute on Chronic anemia - Possibly 2/2 GI blood loss anemia - know hx of iron deficiency as an outpatient, on ferrous sulfate at home - H/H initially 6.6, improved to 8.2 s/p 2 units of PRBC - Neuro and cardio consulted: Cleared patient for EGD - GI consulted, recommended out pt evaluation with EGD - Holding ASA/Plavix until EGD. #CAD #EKG changes: new twave inversions - New EKG changes since 2019 c/w ischemia, per Cradiology. Recs:ECHO and MIBI stress test on 06/25 -troponin negative x 2 - CAD nuclear stress test : 01/11/2017: EF 58%, subtle reversible small apical and inferobasilar defect, mild ischemia #Acute on chronic back pain - s/p fall - CT T/L Spine: no acute pathology - continue oxycodone 5 mg po q6h prn #Hx HTN - continue amlodipine, metorpolol, and losartan #hx HLD - continue atorvastatin #pulmonary nodules - CT chest 11/03/2017: nodularity without change from previous - Will provide Pulm referral as out-patient for monitoring #DVT ppx - Holding chemical ppx, possible acute GI blood loss - SCD's #FEN - No standing fluids - Conitnue to monitor electrolytes - NPO #Dispo: - continue to monitor in tele Visit type - Emergency Visit Emergency Visit: Yes ED Registration Date: 06/22/20 Care time: The patient presented to the Emergency Department on the above date and was hospitalized for further evaluation of their emergent condition. - New Patient This patient is new to me today: No - Critical Care Critical Care patient: No - Discharge Referral Referred to [facility] Med P.C.: No ATTENDING PHYSICIAN STATEMENT I saw and evaluated the patient. I reviewed the resident's note and discussed the case with the resident. I agree with the resident's findings and plan as documented. SUBJECTIVE: OBJECTIVE: ASSESSMENT AND PLAN:
[2020-06-24] MEDS ORDERED: oxyCODONE HCL 5 MG TABLET PO ONE (20:57)
[2020-06-24] MEDS: MELATONIN 5 MG TABLETS PO PRN (21:46)
[2020-06-24] MEDS: ATORVASTATIN CA 40 MG TABLET (FP) PO SCH (21:47)
[2020-06-25 07:34] LABS: BASO % 0.9 % (0-2.0); EOS % 2.4 % (0-4.5); HEMOGLOBIN 8.8 GM/dL (10.7-15.3); LYMPH % 24.1 % (8-40); MCH 28.4 pg (25.7-33.7); MEAN CELL VOLUME 83.3 fl (80-96); MEAN PLT VOLUME 7.8 fl (7.5-11.1); NEUT % 60.6 % (42.8-82.8); PLATELET COUNT 251 K/MM3 (134-434); RBC 3.12 M/mm3 (3.60-5.2); RDW 17.3 % (11.6-15.6); WHITE BLOOD COUNT 5.9 K/mm3 (4.0-10.0)
[2020-06-25 07:47] LABS: ALBUMIN 2.9 g/dl (3.4-5.0); BILIRUBIN,TOTAL 0.7 mg/dL (0.2-1); BLOOD UREA NITROGEN 7.9 mg/dL (7-18); CALCIUM 8.4 mg/dL (8.5-10.1); CREATININE 0.5 mg/dL (0.55-1.3); MAGNESIUM 2.2 mg/dL (1.8-2.4); PHOSPHOROUS 3.4 mg/dL (2.5-4.9); TOT PROT 5.8 g/dl (6.4-8.2)
[2020-06-25] MEDS: amLODIPine BESYLATE 5 MG TABLET (FP) PO SCH ×2 (08:36→09:18)
[2020-06-25] MEDS: PANTOPRAZOLE SODIUM 40 MG VIAL IVPUSH SCH ×2 (08:36→09:18)
[2020-06-25] MEDS: FERROUS SO4 325 MG TABLET (FP) PO SCH ×2 (08:36→09:18)
[2020-06-25] MEDS ORDERED: REGADENOSON 0.4 MG/5 ML PRE-FILLED SYRINGE IVPUSH ONE ×2 (10:25→10:30)
--- NOTE | 2020-06-25 10:32 | PN ---
Progress Note, Physician - Current Medication List Current Medications: Active Medications Acetaminophen (Tylenol -) 325 mg PO Q6H PRN PRN Reason: PAIN LEVEL 6-10 Last Admin: 06/24/20 17:39 Dose: 325 mg Documented by: Amlodipine Besylate (Norvasc -) 10 mg PO DAILY [facility] Last Admin: 06/25/20 09:18 Dose: Not Given Documented by: Atorvastatin Calcium (Lipitor -) 40 mg PO HS [facility] Last Admin: 06/24/20 21:47 Dose: 40 mg Documented by: Ferrous Sulfate (Feosol -) 325 mg PO BID [facility] Last Admin: 06/25/20 09:18 Dose: Not Given Documented by: Sodium Chloride (Normal Saline -) 1,000 mls @ 100 mls/hr IV ASDIR [facility] Last Admin: 06/24/20 21:49 Dose: 100 mls/hr Documented by: Melatonin (Melatonin) 5 mg PO HS PRN PRN Reason: INSOMNIA Last Admin: 06/24/20 21:46 Dose: 5 mg Documented by: Metoprolol Succinate (Toprol Xl -) 25 mg PO DAILY [facility] Last Admin: 06/24/20 15:20 Dose: Not Given Documented by: Pantoprazole Sodium (Protonix Iv) 40 mg IVPUSH BID [facility] Last Admin: 06/25/20 09:18 Dose: Not Given Documented by: - Objective Vital Signs: Vital Signs Temperature 98.3 F 06/25/20 08:35 Pulse Rate 59 L 06/25/20 08:35 Respiratory Rate 20 06/25/20 08:35 Blood Pressure 148/69 06/25/20 08:35 O2 Sat by Pulse Oximetry (%) 96 06/25/20 08:35 Eyes: Yes: WNL, Conjunctiva Clear, EOM Intact HENT: Yes: WNL, Atraumatic, Normocephalic Neck: Yes: WNL, Supple, Trachea Midline Cardiovascular: Yes: WNL, Regular Rate and Rhythm Respiratory: Yes: WNL, Regular, CTA Bilaterally Gastrointestinal: Yes: WNL, Normal Bowel Sounds Genitourinary: Yes: WNL Musculoskeletal: Yes: WNL Extremities: Yes: WNL Edema: No Integumentary: Yes: WNL Neurological: Yes: WNL, Alert, Oriented ...Motor Strength: WNL Psychiatric: Yes: WNL Labs: CBC, BMP 06/25/20 06:33 09/01/20 06:33 Problem List - Problems (1) Acute electrocardiogram changes Code(s): R94.31 - ABNORMAL ELECTROCARDIOGRAM [ECG] [EKG] (2) Anemia Code(s): D64.9 - ANEMIA, UNSPECIFIED Qualifiers: Anemia type: unspecified type Qualified Code(s): D64.9 - Anemia, unspecified (3) Chest pain Code(s): R07.9 - CHEST PAIN, UNSPECIFIED Qualifiers: Chest pain type: unspecified Qualified Code(s): R07.9 - Chest pain, unspecified (4) Syncope Code(s): R55 - SYNCOPE AND COLLAPSE (5) Syncope and collapse Code(s): R55 - SYNCOPE AND COLLAPSE (6) T wave inversion in EKG Code(s): R94.31 - ABNORMAL ELECTROCARDIOGRAM [ECG] [EKG] (7) Abdominal pain Code(s): R10.9 - UNSPECIFIED ABDOMINAL PAIN Qualifiers: Abdominal location: generalized Qualified Code(s): R10.84 - Generalized abdominal pain (8) Abdominal pain, vomiting, and diarrhea Code(s): R10.9 - UNSPECIFIED ABDOMINAL PAIN; R11.10 - VOMITING, UNSPECIFIED; R19.7 - DIARRHEA, UNSPECIFIED (9) Back pain Code(s): M54.9 - DORSALGIA, UNSPECIFIED Qualifiers: Back pain location: low back pain Chronicity: acute Back pain laterality: right Sciatica presence: with sciatica Sciatica laterality: sciatica of right side Qualified Code(s): M54.41 - Lumbago with sciatica, right side (10) Breast pain Code(s): N64.4 - MASTODYNIA (11) Diarrhea Code(s): R19.7 - DIARRHEA, UNSPECIFIED Qualifiers: Diarrhea type: unspecified type Qualified Code(s): R19.7 - Diarrhea, unspecified (12) Eloped from emergency department Code(s): Z53.21 - PROC/TRTMT NOT CRD OUT D/T PT LV BEF SEEN BY [facility] CARE PROV (13) Head injury Code(s): S09.90XA - UNSPECIFIED INJURY OF HEAD, INITIAL ENCOUNTER Qualifiers: Encounter type: initial encounter Qualified Code(s): S09.90XA - Unspecified injury of head, initial encounter (14) Headache Code(s): R51 - HEADACHE (15) Laceration of head Code(s): S01.91XA - LACERATION W/O FOREIGN BODY OF UNSP PART OF HEAD, INIT Qualifiers: Encounter type: initial encounter Location of open wound of head: other part of head Foreign body presence: without foreign body Qualified Code(s): S01.81XA - Laceration without foreign body of other part of head, initial encounter (16) Migraine headache Code(s): G43.909 - MIGRAINE, UNSP, NOT INTRACTABLE, WITHOUT STATUS MIGRAINOSUS Qualifiers: Migraine type: unspecified Status migrainosus presence: without status migrainosus Intractability: not intractable Qualified Code(s): G43.909 - Migraine, unspecified, not intractable, without status migrainosus (17) Pain of right lower extremity Code(s): M79.604 - PAIN IN RIGHT LEG (18) Petechial rash Code(s): R23.3 - SPONTANEOUS ECCHYMOSES (19) Rib contusion Code(s): S20.219A - CONTUSION OF UNSPECIFIED FRONT WALL OF THORAX, INIT ENCNTR Qualifiers: Encounter type: initial encounter Laterality: right Qualified Code(s): S20.211A - Contusion of right front wall of thorax, initial encounter (20) Right elbow pain Code(s): M25.521 - PAIN IN RIGHT ELBOW (21) UTI (urinary tract infection) Code(s): N39.0 - URINARY TRACT INFECTION, SITE NOT SPECIFIED Qualifiers: Urinary tract infection type: site unspecified Hematuria presence: without hematuria Qualified Code(s): N39.0 - Urinary tract infection, site not specified (22) Visit for suture removal Code(s): Z48.02 - ENCOUNTER FOR REMOVAL OF SUTURES Assessment/Plan Imp; Syncope PAD Anemia Bradycardia Multiple syncopies with face injury New EKG changes since 2019 - c/w ischemia Nonobstructive cors 2018 C ,cath February 2019 [facility] nonobstructive CAD 30-40% 3 VD , 50% m LCX Correct Anemia - PRBC transfusions GI w/u pending Nonobstructive carotids January 2019 ECHO and MIBI stress test WNL Plan; Patient may be followed up as the outpatient for w/u of the syncopies.
--- NOTE | 2020-06-25 11:17 | ECHO ---
Version: 1 Name: KAVYA CORRIGAN Exam: Adult Echocardiogram Study Date: 06/25/2020, 8:59 AM Age: 60 Years MMode/2D Measurements & Calculations IVSd: 1.12 cm LVIDs: 1.96 cm LVIDd: 3.2 cm LVPWd: 1.09 cm LAV (MOD-bp): 55.9 ml LVOT diam: 1.99 cm Ao root diam: 3.0 cm LA dimension: 2.7 cm Doppler Measurements & Calculations MV E max hank: 70.3 cm/sec Med E/e': 15.0 MV A max hank: 92.5 cm/sec Med Peak E' Hank: 4.7 cm/sec MV E/A: 0.76 Lat E/e': 5.9 Lat Peak E' Hank: 12.0 cm/sec MR max P.3 mmHg Ao max P.9 mmHg Ao V2 max: 157.0 cm/sec TR max hank: 251.2 cm/sec TR max P.3 mmHg Procedure A complete two-dimensional transthoracic echocardiogram was performed (2D, M-mode, Doppler and color flow Doppler). Left Ventricle The left ventricular size, thickness and function are normal. Upper septal hypertrophy (sigmoid sept um), normal variant. Ejection Fraction = 60%. The transmitral spectral Doppler flow pattern is suggestive of impaired LV relaxation. The left ventricular wall motion is normal. Right Ventricle The right ventricle is normal in size and function. Mitral Valve The mitral valve is normal in structure and function. There is trace to mild mitral regurgitation. Tricuspid Valve The tricuspid valve is normal in structure and function. Right ventricular systolic pressure is 30 m mhg. There is Trace to mild tricuspid regurgitation. Aortic Valve There is mild aortic valve thickening. No hemodynamically significant valvular aortic stenosis. Pulmonic Valve The pulmonic valve is normal in structure and function. Great Vessels The aortic root is normal size. Pericardium/Pleura There is no pericardial effusion. There is no pleural effusion. Summary Statements The left ventricular size, thickness and function are normal Upper septal hypertrophy (sigmoid septum), normal variant. Ejection Fraction = 60%. There is trace to mild mitral regurgitation. There is Trace to mild tricuspid regurgitation. Right ventricular systolic pressure is 30 mmhg. There is mild aortic valve thickening. MD Carlos Bruner 06/25/2020, 11:17 AM Ordering Physician: Carmelo Brush Performed By: Lynne Sanchez
--- NOTE | 2020-06-25 12:45 | PN ---
Teaching Attending Note Name of Resident: Jeff Gutierrez ATTENDING PHYSICIAN STATEMENT I saw and evaluated the patient. I reviewed the resident's note and discussed the case with the resident. I agree with the resident's findings and plan as documented. SUBJECTIVE: OBJECTIVE: Last Vital Signs Temp Pulse Resp BP Pulse Ox 98.3 F 59 L 20 148/69 96 06/25/20 08:35 06/25/20 08:35 06/25/20 08:35 06/25/20 08:35 06/25/20 08:35 GENERAL: Awake, alert, and fully oriented, in no acute distress. HEAD: Normal with no signs of trauma. EYES: Pupils equal, round and reactive to light, sclera anicteric, conjunctiva clear. LUNGS: Breath sounds equal, clear to auscultation bilaterally. No wheezes, and no crackles. No accessory muscle use. HEART: Regular rate and rhythm, normal S1 and S2 ABDOMEN: Soft, nontender, not distended MUSCULOSKELETAL: Normal range of motion at all joints. No bony deformities or tenderness. No CVA tenderness. UPPER EXTREMITIES: 2+ pulses, warm, well-perfused. No cyanosis. No clubbing. No peripheral edema. LOWER EXTREMITIES: 2+ pulses, warm, well-perfused. No calf tenderness. No peripheral edema. NEUROLOGICAL: Cranial nerves II-XII intact. Normal speech. CBCD WBC 5.9 K/mm3 (4.0-10.0) 06/25/20 06:33 RBC 3.12 M/mm3 (3.60-5.2) L 06/25/20 06:33 Hgb 8.8 GM/dL (10.7-15.3) L 06/25/20 06:33 Hct 26.0 % (32.4-45.2) L 06/25/20 06:33 MCV 83.3 fl (80-96) 06/25/20 06:33 MCHC 34.0 g/dl (32.0-36.0) 06/25/20 06:33 RDW 17.3 % (11.6-15.6) H 06/25/20 06:33 Plt Count 251 K/MM3 (134-434) 06/25/20 06:33 MPV 7.8 fl (7.5-11.1) 06/25/20 06:33 CMP Sodium 142 mmol/L (136-145) 06/25/20 06:33 Potassium 4.0 mmol/L (3.5-5.1) 06/25/20 06:33 Chloride 108 mmol/L (98-107) H 06/25/20 06:33 Carbon Dioxide 28 mmol/L (21-32) 06/25/20 06:33 Anion Gap 6 MMOL/L (8-16) L 06/25/20 06:33 BUN 7.9 mg/dL (7-18) 06/25/20 06:33 Creatinine 0.5 mg/dL (0.55-1.3) L 06/25/20 06:33 Calcium 8.4 mg/dL (8.5-10.1) L 06/25/20 06:33 Total Bilirubin 0.7 mg/dL (0.2-1) 06/25/20 06:33 AST 26 U/L (15-37) 06/25/20 06:33 ALT 11 U/L (13-61) L 06/25/20 06:33 Alkaline Phosphatase 113 U/L (45-117) 06/25/20 06:33 Total Protein 5.8 g/dl (6.4-8.2) L 06/25/20 06:33 Albumin 2.9 g/dl (3.4-5.0) L 06/25/20 06:33 Active Medications Acetaminophen (Tylenol -) 325 mg PO Q6H PRN PRN Reason: PAIN LEVEL 6-10 Last Admin: 06/24/20 17:39 Dose: 325 mg Documented by: Amlodipine Besylate (Norvasc -) 10 mg PO DAILY [facility] Last Admin: 06/25/20 09:18 Dose: Not Given Documented by: Atorvastatin Calcium (Lipitor -) 40 mg PO HS [facility] Last Admin: 06/24/20 21:47 Dose: 40 mg Documented by: Ferrous Sulfate (Feosol -) 325 mg PO BID [facility] Last Admin: 06/25/20 09:18 Dose: Not Given Documented by: Sodium Chloride (Normal Saline -) 1,000 mls @ 100 mls/hr IV ASDIR [facility] Last Admin: 06/24/20 21:49 Dose: 100 mls/hr Documented by: Melatonin (Melatonin) 5 mg PO HS PRN PRN Reason: INSOMNIA Last Admin: 08/31/20 21:46 Dose: 5 mg Documented by: Metoprolol Succinate (Toprol Xl -) 25 mg PO DAILY [facility] Last Admin: 06/24/20 15:20 Dose: Not Given Documented by: Pantoprazole Sodium (Protonix Iv) 40 mg IVPUSH BID [facility] Last Admin: 06/25/20 09:18 Dose: Not Given Documented by: ASSESSMENT AND PLAN: 60 year old female with history of Celiac Disease, Migraine, HTN, Asthma, CAD, PAD s/p PCI/Stent, Chronic Anemia s/p normal recent Colonoscopy, Cervical cancer s/p Hysterectomy, presents after episode of lightheadedness and loss of consciousness x 2 Syncope, 2/2 anemia/hypovolemia due to blood loss. asypmtomatic now trend H&H will have outpatient EGD off antiplatelets CAD (ECHO EF 60%) HTN PAD HLD Acute on chronic lower back pain s/p fall - CT T/L Spine shows no acute findings. Pulmonary Nodules DVT Prophylaxis
[2020-06-25] MEDS: metoPROLOL SUCCINATE 25 MG TAB.SR.24H (FP) PO SCH (14:25)
[2020-06-25 14:37] VITALS: BP 133/72; PULSE 80; TEMP 98.2
--- NOTE | 2020-06-25 15:46 | DS ---
Physical Exam: SUBJECTIVE: Patient seen and examined at bedside. No acute events overnight. Denies any fever, chills, nausea, vomiting, diarrhea, constipation. OBJECTIVE: Vital Signs Period Temp Pulse Resp BP Sys/Miller Pulse Ox Last 24 Hr 98.2 F-99.2 F 54-80 19-20 132-150/55-84 95-99 PHYSICAL EXAM GENERAL: Awake, alert, and fully oriented, in no acute distress. HEAD: Normal with no signs of trauma. EYES: Pupils equal, round and reactive to light, extraocular movements intact EARS, NOSE, THROAT:Moist mucous membranes. LUNGS: Breath sounds equal, clear to auscultation bilaterally. No wheezes, and no crackles. No accessory muscle use. HEART: Regular rate and rhythm, normal S1 and S2 without murmur, rub or gallop. ABDOMEN: Soft, nontender, not distended, normoactive bowel sounds, no guarding, no rebound, no masses. old surgical scars Rectal exam: no gross blood, no hemorrhoids felt MUSCULOSKELETAL: Normal range of motion at all joints. UPPER EXTREMITIES: 2+ pulses, warm, well-perfused. No cyanosis. No clubbing. No peripheral edema. LOWER EXTREMITIES: No peripheral edema. SKIN: Warm, dry, normal turgor, no rashes or lesions noted, normal capillary refill. LABS Laboratory Results - last 24 hr 06/25/20 06/25/20 06:33 06:33 WBC 5.9 RBC 3.12 L Hgb 8.8 L Hct 26.0 L MCV 83.3 MCH 28.4 MCHC 34.0 RDW 17.3 H Plt Count 251 MPV 7.8 Absolute Neuts (auto) 3.6 Neutrophils % 60.6 Lymphocytes % 24.1 D Monocytes % 12.0 H Eosinophils % 2.4 D Basophils % 0.9 Nucleated RBC % 0 Sodium 142 Potassium 4.0 Chloride 108 H Carbon Dioxide 28 Anion Gap 6 L BUN 7.9 Creatinine 0.5 L Est GFR (CKD-EPI)AfAm 121.92 Est GFR (CKD-EPI)NonAf 105.20 Random Glucose 90 Calcium 8.4 L Phosphorus 3.4 Magnesium 2.2 Total Bilirubin 0.7 AST 26 ALT 11 L Alkaline Phosphatase 113 Total Protein 5.8 L Albumin 2.9 L HOSPITAL COURSE: Date of Admission:06/22/20 60 year old female with history of Celiac Disease, Migraine, HTN, Asthma, CAD, PAD s/p PCI/Stent, Chronic Anemia s/p normal recent Colonoscopy, Cervical cancer s/p Hysterectomy, presents after episode of lightheadedness and loss of consci ousness, admitted for Syncope due to Acute Blood Loss Anemia sec to likely GI blood loss. At admission, pt's H/H was 6.9/21.8 improved to 8.2/24.6 s/p 2 units PRBCs. Patient was seen and evaluated by GI, recommended EGD as out-patient. Holding ASA/Plavix until EGD. Patient had a Nuclear Stress 01/08 - subtle reversible small apical and inferobasilar defect, mild ischemia. New EKG changes since 2019 - c/w ischemia. Cardiology evaluated her with ECHO and MIBI stress test, which were WNL. Pulmonary Nodules were seen on imaging, provided her with Pulm referral as out- patient for monitoring. She is Tolerating diet and Medically stable for discharge. She is discharged with prescription for Protonix for 15 days and with referrals for GI, CARDIO, and pulmonary. Date of Discharge: 06/25/20 Minutes to complete discharge: 36 Discharge Summary Problems reviewed: Yes Reason For Visit: ANEMIA / SYNCOPE AND COLLAPSE Current Active Problems Acute electrocardiogram changes (Acute) Anemia (Acute) Chest pain (Acute) Syncope (Acute) Syncope and collapse (Acute) T wave inversion in EKG (Acute) Condition: Stable - Instructions Diet, Activity, Other Instructions: YOUR VISIT: You were admitted to the hospital after an episode of lightheadedness and loss of consciousness. Imaging did not reveal any acute bleeding in your head or any damages to you bones in your spine, ribs and chest. Your labs showed that you had low red blood cells, which possibly caused you to feel lightheadedness and resulted in Loss of consciousness. Labs showed that you had low red blood cell count, we gave you 2 units of blood. Labs also showed that you had low Iron in your blood, we treated you with iron supplements. You were evaluated by GI for possible blood loss from your stomach/gut. Dr Miranda recommended out patient EGD. MEDICATIONS: Please START taking Protonix daily Please continue to take Feosol 325 mg twice a day. Please take your colace and miralax. Continue to take all other home medications as prescribed DO NOT take aspirin and Plavix until you follow up with the wall scraper as an outpatient due to your low blood counts FOLLOW UPS: Please follow up with Santos Petersen, GI doctor, for an Endoscopy (EGD) evaluation. Please visit your primary care provider, Dr Wiley within 1-2 weeks to follow up with your lab work and hospital visit. Please follow up with the wall scraper Dr Brush within one week to discuss resuming your aspirin and plavix Please follow up with the muskrat trapper, Dr Watts as your had lung nodules found on your CT scan ADDITIONAL INSTRUCTIONS: You are being discharged to your home. Please return to the Emergency department if you are experiencing worsening or concerning symptoms. Referrals: Kal Watts MD [Staff Physician] - Matthew Wiley MD [Primary Care Provider] - 1 Week Santos Miranda MD [Staff Physician] - 06/25/20 Carmelo Brush MD [Staff Physician] - Disposition: HOME - Home Medications Comprehensive Discharge Medication List: Ambulatory Orders Metoprolol Succinate [Toprol XL -] 25 mg PO DAILY 10/24/12 Amlodipine Besylate [Norvasc -] 10 mg PO DAILY 08/25/13 Atorvastatin Ca [Lipitor] 40 mg PO HS #30 tablet 01/12/17 Folic Acid 1 mg PO DAILY 02/18/19 Furosemide 40 mg PO DAILY 02/18/19 Oxycodone HCl/Acetaminophen [Percocet 5-325 mg Tablet] 1 tab PO Q6H PRN #10 tablet MDD 4 06/06/19 Losartan Potassium 50 mg PO DAILY 06/23/19 Diphenhydramine [Benadryl Capsule -] 50 mg PO HS PRN 06/22/20 Ferrous Sulfate 325 mg PO BID 06/22/20 Pantoprazole Sodium [Protonix] 40 mg PO DAILY #15 tab 06/24/20 This patient is new to me today: No Emergency Visit: Yes ED Registration Date: 06/22/20 Care time: The patient presented to the Emergency Department on the above date and was hospitalized for further evaluation of their emergent condition. Critical Care patient: No - Discharge Referral Referred to [facility] Med P.C.: No ATTENDING PHYSICIAN STATEMENT I saw and evaluated the patient. I reviewed the resident's note and discussed the case with the resident. I agree with the resident's findings and plan as documented. SUBJECTIVE: OBJECTIVE: ASSESSMENT AND PLAN:
== END 2020-06-25 18:39 | disposition home or self-care (01) | DRG 253 ==
LOC: JER 11:31 → JERBED 15:51 → J4S 21:55
PROVIDERS: ADMIT Student in an Organized Health Care Education/Training Program; ATTEND Student in an Organized Health Care Education/Training Program
PROC: 30233N1 Transfusion of Nonautologous Red Blood Cells into Peripheral Vein, Percutaneous Approach (ICD-10-PCS; principal; 2020-06-22)
DX: K92.2 Gastrointestinal hemorrhage, unspecified (principal); K90.0 Celiac disease; E86.1 Hypovolemia; R55 Syncope and collapse; G43.909 Migraine, unspecified, not intractable, without status migrainosus; D50.9 Iron deficiency anemia, unspecified; E78.5 Hyperlipidemia, unspecified; M54.5 Low back pain; G89.29 Other chronic pain; R91.1 Solitary pulmonary nodule; D62 Acute posthemorrhagic anemia; I24.8 Other forms of acute ischemic heart disease; I25.119 Atherosclerotic heart disease of native coronary artery with unspecified angina pectoris; Z95.5 Presence of coronary angioplasty implant and graft; R00.1 Bradycardia, unspecified; I11.9 Hypertensive heart disease without heart failure; E86.0 Dehydration
CPT/HCPCS: 36415; 36430; 70450-TC; 71046-TC-FY; 71101-TC-RT-FY; 72128-TC; 72131-TC; 78452-TC; 80048; 80053; 82550; 82607; 82728; 82746; 83540; 83550; 83735; 84100; 84484; 85025; 85045; 85651; 86140; 86850; 86900; 86901; 86922; 93005; 93010; 93017; 93306-TC; 97116-GP; 97161-GP; 99285-25; A9502; J0131; J2785; P9058; U0003

== ENCOUNTER 2021-04-18 13:29 | Observation (INO) | payer OTHER ==
[2021-04-18 13:40] VITALS: BMI 26.6
[2021-04-18] MEDS ORDERED: FAMOTIDINE 20 MG/50 ML IVPB 20 MG/50 ML MG IVPB ONE ×2 (14:07→14:11)
[2021-04-18 14:46] LABS: EOS % 2.6 % (0-4.5); HEMATOCRIT 38.4 % (32.4-45.2); HEMOGLOBIN 13.2 GM/dL (10.7-15.3); LYMPH % 20.9 % (8-40); MCHC 34.4 g/dl (32.0-36.0); MEAN CELL VOLUME 90.2 fl (80-96); MEAN PLT VOLUME 7.7 fl (7.5-11.1); MONO % 9.5 % (3.8-10.2); PLATELET COUNT 309 10^3/uL (134-434); RBC 4.25 M/mm3 (3.60-5.2); RDW 12.8 % (11.6-15.6); WHITE BLOOD COUNT 6.4 K/mm3 (4.0-10.0)
[2021-04-18] MEDS ORDERED: ACETAMINOPHEN 1000 MG/100 ML VIAL (NON FORMULARY) IVPB ONE (14:54)
[2021-04-18 15:15] LABS: CHLORIDE 108 mmol/L (98-107); SODIUM 140 mmol/L (136-145)
[2021-04-18] MEDS ORDERED: ACETAMINOPHEN INJECTION 100 ML IVPB ONE (15:15)
[2021-04-18 15:17] LABS: ALBUMIN 3.7 g/dl (3.4-5.0); ANION GAP 5 MMOL/L (8-16); CALCIUM 8.8 mg/dL (8.5-10.1); CO2 27 mmol/L (21-32); GLUCOSE,RANDOM 81 mg/dL (74-106); LIPASE 64 U/L (73-393); MAGNESIUM 2.1 mg/dL (1.8-2.4)
[2021-04-18 15:20] LABS: CREATININE 0.7 mg/dL (0.55-1.3); SGOT/AST 53 U/L (15-37); SGPT/ALT 23 U/L (13-61)
[2021-04-18 15:22] LABS: BILIRUBIN,TOTAL 0.3 mg/dL (0.2-1); TOT PROT 7.1 g/dl (6.4-8.2)
[2021-04-18 15:24] LABS: ALK PHOS 132 U/L (45-117)
[2021-04-18] MEDS ORDERED: morphine CARPU-JECT 4 MG/1 ML DISP.SYRIN IVPUSH ONE (15:35)
[2021-04-18] MEDS ORDERED: morphine SULFATE 4 MG/ML VIAL ONE (15:43)
[2021-04-18] MEDS ORDERED: ONDANSETRON 4 MG/2 ML VIAL ONE ×2 (16:12→18:59)
[2021-04-18] MEDS ORDERED: ONDANSETRON 4 MG/2 ML VIAL IVPUSH ONE ×2 (16:19→18:44)
[2021-04-18 16:47] LABS: CHLORIDE 107 mmol/L (98-107); SODIUM 138 mmol/L (136-145)
[2021-04-18 16:49] LABS: BLOOD UREA NITROGEN 9.8 mg/dL (7-18); CO2 27 mmol/L (21-32); GLUCOSE,RANDOM 89 mg/dL (74-106)
[2021-04-18 16:53] LABS: CREATININE 0.8 mg/dL (0.55-1.3)
[2021-04-18 17:04] LABS: ANION GAP 5 MMOL/L (8-16)
[2021-04-18] MEDS ORDERED: LACTATED RINGERS SOLUTION 1000 ML INFUS.BAG IV ONE (18:44)
[2021-04-18] MEDS ORDERED: ACETAMINOPHEN/CAFFEINE/BUTALBITAL 1 TAB PO ONE (18:44)
[2021-04-18] MEDS ORDERED: ACETAMINOPHEN/CAFFEINE/BUTALBITAL 1 TAB ONE (18:59)
[2021-04-18] MEDS ORDERED: ONDANSETRON 4 MG/2 ML VIAL IVPUSH PRN (22:13)
[2021-04-18] MEDS ORDERED: SODIUM CHLORIDE 1,000 ML IV SCH (22:15)
[2021-04-19] MEDS ORDERED: ACETAMINOPHEN 500 MG TABLET (FP) PO PRN (01:54)
[2021-04-19] MEDS ORDERED: ACETAMINOPHEN 325 MG TABLET (FP) PO PRN (03:58)
[2021-04-19 09:07] LABS: HEMATOCRIT 38.3 % (32.4-45.2); HEMOGLOBIN 12.8 GM/dL (10.7-15.3); MCH 30.6 pg (25.7-33.7); MCHC 33.5 g/dl (32.0-36.0); MEAN CELL VOLUME 91.4 fl (80-96); MEAN PLT VOLUME 7.7 fl (7.5-11.1); PLATELET COUNT 283 10^3/uL (134-434); RBC 4.19 M/mm3 (3.60-5.2); RDW 12.7 % (11.6-15.6); WHITE BLOOD COUNT 5.2 K/mm3 (4.0-10.0)
[2021-04-19 09:35] LABS: CALCIUM 8.6 mg/dL (8.5-10.1)
[2021-04-19 09:37] LABS: ALBUMIN 3.6 g/dl (3.4-5.0); BLOOD UREA NITROGEN 7.2 mg/dL (7-18)
[2021-04-19 09:40] LABS: CREATININE 0.6 mg/dL (0.55-1.3)
[2021-04-19 09:41] LABS: BILIRUBIN,TOTAL 0.3 mg/dL (0.2-1); TOT PROT 6.5 g/dl (6.4-8.2)
[2021-04-19] MEDS ORDERED: ENOXAPARIN NA (PORCINE) 40 MG/0.4 ML DISP.SYRIN SQ SCH (10:00)
[2021-04-19] MEDS ORDERED: PANTOPRAZOLE SODIUM 40 MG VIAL IVPUSH SCH (10:00)
[2021-04-19 13:31] VITALS: BP 128/56; PULSE 64; TEMP 98.1
[2021-04-19] MEDS ORDERED: ACETAMINOPHEN/CAFFEINE/BUTALBITAL 1 TAB PO PRN (14:50)
[2021-04-19] MEDS ORDERED: oxyCODONE HCL 5 MG TABLET PO PRN (14:51)
== END 2021-04-19 17:38 | disposition home or self-care (01) ==
LOC: JER 13:29 → JERBED 18:43 → J7W 04-19 01:32
PROVIDERS: ADMIT Hospitalist; ATTEND Internal Medicine
PROC: 3E033GC Introduction of Other Therapeutic Substance into Peripheral Vein, Percutaneous Approach (ICD-10-PCS; principal; 2021-04-18)
PROC: 3E033NZ Introduction of Analgesics, Hypnotics, Sedatives into Peripheral Vein, Percutaneous Approach (ICD-10-PCS; 2021-04-18)
PROC: 3E013GC Introduction of Other Therapeutic Substance into Subcutaneous Tissue, Percutaneous Approach (ICD-10-PCS; 2021-04-18)
DX: R10.13 Epigastric pain (principal); R11.2 Nausea with vomiting, unspecified; I10 Essential (primary) hypertension; I25.10 Atherosclerotic heart disease of native coronary artery without angina pectoris; E78.5 Hyperlipidemia, unspecified; K90.0 Celiac disease; J45.909 Unspecified asthma, uncomplicated; I73.9 Peripheral vascular disease, unspecified; D64.89 Other specified anemias; Z85.41 Personal history of malignant neoplasm of cervix uteri; R00.1 Bradycardia, unspecified; K83.9 Disease of biliary tract, unspecified; Z86.718 Personal history of other venous thrombosis and embolism; Z95.5 Presence of coronary angioplasty implant and graft; Z88.0 Allergy status to penicillin; Z88.6 Allergy status to analgesic agent; Z88.8 Allergy status to other drugs, medicaments and biological substances; Z91.013 Allergy to seafood; Z91.018 Allergy to other foods
CPT/HCPCS: 36415; 71045-TC-FY; 74177-TC; 80048; 80053; 83605; 83690; 83735; 84132; 84484; 85025; 85027; 86850; 86900; 86901; 93005; 93010; 96365; 96372; 96375; 96376; 99285-25; C9803; G0378; J0131; Q9967; U0003; U0005

== ENCOUNTER 2021-11-03 04:21 | Day surgery (SDC) | payer OTHER ==
[2021-10-29 14:02] VITALS: BMI 26.4
[2021-11-03] MEDS ORDERED: MIDAZOLAM HCL 2 MG/2 ML SINGLE DOSE VIAL ONE ×2 (10:26)
[2021-11-03 11:36] VITALS: TEMP 98
[2021-11-03 12:30] VITALS: BP 128/78; PULSE 78
== END 2021-11-03 12:15 | disposition home or self-care (01) ==
LOC: JASU-SURG 04:21
PROVIDERS: ATTEND Urology
PROC: 0TF3XZZ Fragmentation in Right Kidney Pelvis, External Approach (ICD-10-PCS; principal; 2021-11-03 09:30)
DX: N20.0 Calculus of kidney (principal)

== ENCOUNTER 2022-01-16 22:28 | Emergency (ER) | payer OTHER ==
[2022-01-16 22:40] VITALS: TEMP 98; BMI 26.0
[2022-01-16] MEDS ORDERED: METOCLOPRAMIDE HCL INJECTION 10 MG/2 ML VIAL IVPB ONE (23:24)
[2022-01-16] MEDS ORDERED: METOCLOPRAMIDE HCL INJECTION 10 MG/2 ML VIAL ONE (23:34)
[2022-01-16] MEDS ORDERED: SODIUM CHLORIDE 0.9% 500 ML INFUS.BAG IV ONE (23:53)
[2022-01-16] MEDS ORDERED: ACETAMINOPHEN 325 MG TABLET (FP) PO ONE (23:53)
[2022-01-16 23:55] LABS: BASO % 0.8 % (0-2.0); EOS % 1.8 % (0-4.5); HEMATOCRIT 37.4 % (32.4-45.2); HEMOGLOBIN 13.2 GM/dL (10.7-15.3); LYMPH % 16.3 % (8-40); MCH 31.5 pg (25.7-33.7); MCHC 35.2 g/dl (32.0-36.0); MEAN CELL VOLUME 89.5 fl (80-96); MEAN PLT VOLUME 7.6 fl (7.5-11.1); MONO % 8.6 % (3.8-10.2); NEUT % 72.5 % (42.8-82.8); PLATELET COUNT 287 10^3/uL (134-434); RBC 4.17 M/mm3 (3.60-5.2); RDW 12.8 % (11.6-15.6); WHITE BLOOD COUNT 7.9 K/mm3 (4.0-10.0)
[2022-01-17 00:05] LABS: INR 1.02 (0.83-1.09); PROTHROMBIN TIME (PATIENT) 11.7 SEC (9.7-13.0)
[2022-01-17 00:08] LABS: ACTIVATED PTT 31.2 SECONDS (25.2-36.5)
[2022-01-17 00:22] LABS: ALBUMIN 3.6 g/dl (3.4-5.0); CALCIUM 8.8 mg/dL (8.5-10.1)
[2022-01-17 00:23] LABS: BLOOD UREA NITROGEN 12.2 mg/dL (7-18)
[2022-01-17 00:26] LABS: CREATININE 0.7 mg/dL (0.55-1.3)
[2022-01-17 00:27] LABS: BILIRUBIN,TOTAL 0.4 mg/dL (0.2-1); TOT PROT 7.2 g/dl (6.4-8.2)
[2022-01-17] MEDS ORDERED: ACETAMINOPHEN 325 MG TABLET (FP) ONE (00:50)
[2022-01-17] MEDS ORDERED: DEXAMETHASONE SOD PHOSPHATE 10 MG/1 ML VIAL IVPUSH ONE (02:10)
[2022-01-17] MEDS ORDERED: MAGNESIUM SULF 50% (8.12 MEQ/2 ML-1 GM VIAL) IVPB ONE (02:11)
[2022-01-17 02:36] VITALS: BP 154/69; PULSE 62
== END 2022-01-17 02:37 | disposition home or self-care (01) ==
LOC: JER 22:28
PROC: 3E033GC Introduction of Other Therapeutic Substance into Peripheral Vein, Percutaneous Approach (ICD-10-PCS; principal; 2022-01-16)
DX: R07.9 Chest pain, unspecified (principal); R51.9 Headache, unspecified
CPT/HCPCS: 36415; 70450-TC; 71046-TC-FY; 80053; 84132; 84484; 85025; 85610; 85730; 93005; 93010; 99285-25